=== PATIENT | female | born 1975 | race Caucasian/White ===

== ENCOUNTER 2022-10-03 13:02 | Emergency (ER) | payer OTHER, SELFPAY ==
--- NOTE | ~2022-10-03 | CT_ITS ---
EXAMINATION: CT ABDOMEN AND PELVIS WITH CONTRAST CLINICAL INFORMATION: Abdominal pain and vomiting. COMPARISON: None available. TECHNIQUE: Multidetector volumetric images were obtained from the superior aspect of the liver through the pubic symphysis following administration 85 mL of Omnipaque 350 intravenous contrast. Sagittal and coronal reformatted images were obtained on the technologist's workstation. Oral contrast: No This CT examination was performed using dose optimization techniques as appropriate, variously including the following: *Automated exposure control *Adjustment of mA and/or kV according to patient size (this includes techniques or standardized protocols for targeted exams where dose is matched to indication/reason for exam; i.e. extremities or head) *Use of iterative reconstruction technique DLP: 658 mGy-cm FINDINGS: LUNG BASES: Minimal bibasilar atelectasis. Normal heart size. LIVER, GALLBLADDER, AND BILIARY TREE: The liver is normal in size, shape, and attenuation. No biliary ductal dilatation. Multiple subcentimeter hypoattenuating lesions scattered in the liver, too small to fully characterize.. The gallbladder is unremarkable with no evidence of radiopaque gallstones, gallbladder wall thickening, or obvious pericholecystic inflammatory changes. PANCREAS: Unremarkable. SPLEEN: Unremarkable. ADRENAL GLANDS: Unremarkable. KIDNEYS AND URETERS: The cortical thinning at the upper pole of the right kidney with lobulated appearance. There is an associated simple cyst for which no specific follow-up is recommended. No hydronephrosis or nephrolithiasis. BLADDER: Unremarkable. GASTROINTESTINAL TRACT: The stomach is unremarkable. Normal caliber small bowel. No obstruction. Normal appendix. No colonic wall thickening or inflammation. No free air. Trace pelvic free fluid. ABDOMINAL WALL: No significant hernia is appreciated. LYMPH NODES: Normal. VASCULAR: Unremarkable. PELVIC VISCERA: Anteverted uterus with IUD in place. No adnexal mass. OSSEOUS STRUCTURES: No acute or suspicious osseous abnormality. CT/CT abdomen pelvis w IV con IMPRESSION: No acute findings in the abdomen or pelvis. No inflammatory changes. Fleischner guidelines were followed.
[2022-10-03 13:18] VITALS: BP 154/85; PULSE 94; RESP 18; TEMP 36.6; O2SAT 98; BMI 30.9
--- NOTE | 2022-10-03 13:19 | ED_ITS ---
HPI - Nausea/Vomiting/Diarrhea General Chief complaint: Abdominal Pain <MINDY Woods - Last Filed: 10/03/22 13:20> Stated complaint: vomiting <MINDY Woods - Last Filed: 10/03/22 13:20> Time Seen by Provider: 10/03/22 14:13 <MINDY Woods - Last Filed: 10/03/22 13:20> Source: patient, family, RN notes reviewed and old records reviewed <Smith Bird - Last Filed: 10/03/22 17:29> Mode of arrival: ambulatory <Smith Bird - Last Filed: 10/03/22 17:29> Limitations: no limitations <Smith Omalley Last Filed: 10/03/22 17:29> History of Present Illness HPI Narrative: 46-year-old female presents for evaluation of vomiting, diarrhea and headache. The patient reports her symptoms started 4 hours prior to arrival she reports some mild upper abdominal pain. Reports that surgical history includes umbilical hernia repair only he rates her pain as 7/10. The patient's daughter is present with fever and cough. The patient does not have a fever,cough or shortness of breath. patient complains of a headache but suffers from migraines. Denies any blurry vision, dizziness, head trauma <Smith Omalley Last Filed: 10/03/22 17:29> Related Data Home medications: Previous Rx's Medication Instructions Recorded ondansetron 4 mg disintegrating 4 mg PO Q8H PRN nausea and 10/03/22 tablet vomiting #20 tabs <MINDY Woods - Last Filed: 10/03/22 13:20> Allergies/Adverse reactions: Allergies Allergy/AdvReac Type Severity Reaction Status Date / Time gluten Allergy Unknown Verified 10/03/22 13:17 lamotrigine [From Lamictal] Allergy Swelling Verified 10/03/22 13:16 Penicillins [PCN] Allergy Swelling Verified 10/03/22 13:17 <MINDY Woods Last Filed: 10/03/22 13:20> Review of Systems Constitutional: Constitutional: Reports as per HPI, Denies chills, Denies fatigue, Denies fever(s) and Reports headache(s) <Smith Lee Filed: 10/03/22 17:29> ENT: Reports headache(s) <Smith O - Last Filed: 10/03/22 17:29> Cardiovascular: Cardiovascular: Denies chest pain and Denies dyspnea <Smith - Last Filed: 10/03/22 17:29> Respiratory: Respiratory: Denies cough and Denies dyspnea <Smith O - Last Filed: 10/03/22 17:29> Gastrointestinal: Gastrointestinal: Reports abdominal pain, Reports diarrhea and Reports vomiting <Smith O - Last Filed: 10/03/22 17:29> Genitourinary: Genitourinary: Denies dysuria <Smith O Last Filed: 10/03/22 17:29> Integumentary/Breasts: Skin/Breast: Denies rash <Smith O - Last Filed: 10/03/22 17:29> Neurologic: Reports headache(s) and Denies focal weakness <Smith ONick - Last Filed: 10/03/22 17:29> Endocrine: Endocrine: Denies fatigue <Smith O - Last Filed: 10/03/22 17:29> FOR[facility]LY [facility] Social History Social History: Social History Advance Directives: No Advance Directives Information Provided: No <MINDY Woods - Last Filed: 10/03/22 13:20> Physical Exam Vital Signs: Vital Signs: Last Vital Signs Temp 99.0 F 10/03/22 16:34 Pulse 96 10/03/22 16:00 Resp 18 10/03/22 16:00 BP 144/96 H 10/03/22 16:00 Pulse Ox 100 10/03/22 16:00 O2 Del Method Room Air 10/03/22 16:00 BMI result Body Mass Index 30.9 <MINDY Woods - Last Filed: 10/03/22 13:20> Vital Signs: Last Vital Signs Temp 99.0 F 10/03/22 16:34 Pulse 96 10/03/22 16:00 Resp 18 10/03/22 16:00 BP 144/96 H 10/03/22 16:00 Pulse Ox 100 10/03/22 16:00 O2 Del Method Room Air 10/03/22 16:00 BMI result Body Mass Index 30.9 < - Last Filed: 10/03/22 17:29> Const: General: healthy appearing, comfortable, no acute distress, alert and awake <Smith Last Filed: 10/03/22 17:29> Nutritional Appearance: well nourished < Last Filed: 0 10/03/22 17:29> Orientation/consciousness: patient oriented x3 < Last Filed: 10/03/22 17:29> HEENT: Head: Yes normocephalic and Yes atraumatic < - Last Filed: 10/03/22 17:29> Throat: Yes posterior oropharynx normal < Last Filed: 10/03/22 17:29> Eyes: Eyelids: Yes eyelids normal < - Last Filed: 10/03/22 17:29> Conjunctivae: conjunctivae normal < Last Filed: 10/03/22 17:29> Sclerae: sclerae normal < Last Filed: 10/03/22 17:29> Corneas: corneas normal < Last Filed: 10/03/22 17:29> Pupils: Equal, round and reactive pupils present < Last Filed: 10/03/22 17:29> EOM: EOMs intact bilaterally < Last Filed: 10/03/22 17:29> Neck: Neck: Yes full ROM < Last Filed: 10/03/22 17:29> Resp: Effort & Inspection: normal respiratory effort, able to speak in complete sentences, no audible wheezes and not labored < Last Filed: 10/03/22 17:29> Auscultation: clear to auscultation bilaterally < Last Filed: 10/03/22 17:29> Cardio: Rate: regular rate < Last Filed: 10/03/22 17:29> Rhythm: regular rhythm <Smith Bird - Last Filed: 10/03/22 17:29> GI: Inspection: No distended <Smithtyra Wright Last Filed: 10/03/22 17:29> Palpation (GI): Soft to palpation, not firm, Tenderness to palpation present (GI) ( tender in the left mid abdomen without guarding or rebound), no guarding and not rigid <Smith ONick - Last Filed: 10/03/22 17:29> Auscultation: normoactive bowel sounds <Smith OWashita - Last Filed: 10/03/22 17:29> Skin: General skin exam: no rashes or lesions noted and elasticity normal <Smith ONick - Last Filed: 10/03/22 17:29> Neuro: General: patient oriented x3 <Smith DawnWashita - Last Filed: 10/03/22 17:29> Cranial nerves: Yes CN's II-XII intact bilaterally, Yes Equal, round and reactive pupils present and Yes Bilaterally intact EOM present <Smithtyra Wright Last Filed: 10/03/22 17:29> Cognition (Neuro): normal cognition <Smith DawnNick Last Filed: 10/03/22 17:29> Course Course Course Narrative: RME - 46 yo female presents to the ER for evaluation of nausea, vomiting and upper abdominal pain that started this morning at 2am. Unable to tolerate any PO today. +chills and body aches. Daughter with similar symptoms. Plan: labs and SL zofran <MINDY Woods - Last Filed: 10/03/22 13:20> Reevaluation(s) Reevaluation #1: patient has had no vomiting while in the ER, CT scan without acute findings. Vital signs remain stable, she is stable for discharge with Zofran <Smith Bird - Last Filed: 10/03/22 17:29> Time: 17:25 <Smith Bird Last Filed: 10/03/22 17:29> Medications Administered Discontinued Medications Generic Name Dose Route Start Last Admin Trade Name Freq PRN Reason Stop Dose Admin Acetaminophen 975 mg 10/03/22 16:17 10/03/22 16:28 Acetaminophen 325 Mg Tablet PO 10/03/22 16:18 975 mg ONCE ONE Administration Sodium Chloride 1,000 mls @ 999 mls/hr 10/03/22 14:30 10/03/22 16:30 Ns IV 10/03/22 15:30 Infused .Q1H1M IVAN Infusion Iohexol 100 ml 10/03/22 16:12 10/03/22 16:13 Iohexol 350 Mg/Ml 100 Ml Infus..Btl IV 10/03/22 16:13 85 ml ONCE ONE Administration Morphine Sulfate 4 mg 10/03/22 14:30 10/03/22 14:38 Morphine Sulfate 4 Mg/Ml Cartridge IVPUSH 10/03/22 14:31 4 mg ONCE ONE Administration Protocol Ondansetron HCl 4 mg 10/03/22 13:18 10/03/22 14:27 Ondansetron Odt 4 Mg Tab.Rapdis TRANSLINGU 10/03/22 13:19 Not Given ONCE ONE Ondansetron HCl 4 mg 10/03/22 14:30 10/03/22 14:38 Ondansetron Hcl 4 Mg/2 Ml Vial IVPUSH 10/03/22 14:31 4 mg ONCE ONE Administration <MINDY Woods - Last Filed: 10/03/22 13:20> Medications Administered Discontinued Medications Generic Name Dose Route Start Last Admin Trade Name Freq PRN Reason Stop Dose Admin Acetaminophen 975 mg 10/03/22 16:17 10/03/22 16:28 Acetaminophen 325 Mg Tablet PO 10/03/22 16:18 975 mg ONCE ONE Administration Sodium Chloride 1,000 mls @ 999 mls/hr 10/03/22 14:30 10/03/22 16:30 Ns IV 10/03/22 15:30 Infused .Q1H1M IVAN Infusion Iohexol 100 ml 10/03/22 16:12 10/03/22 16:13 Iohexol 350 Mg/Ml 100 Ml Infus..Btl IV 10/03/22 16:13 85 ml ONCE ONE Administration Morphine Sulfate 4 mg 10/03/22 14:30 10/03/22 14:38 Morphine Sulfate 4 Mg/Ml Cartridge IVPUSH 10/03/22 14:31 4 mg ONCE ONE Administration Protocol Ondansetron HCl 4 mg 10/03/22 13:18 10/03/22 14:27 Ondansetron Odt 4 Mg Tab.Cyndi HERRERAINGU 10/03/22 13:19 Not Given ONCE ONE Ondansetron HCl 4 mg 10/03/22 14:30 10/03/22 14:38 Ondansetron Hcl 4 Mg/2 Ml Vial IVPUSH 10/03/22 14:31 4 mg ONCE ONE Administration <Smith Bird - Last Filed: 10/03/22 17:29> Medical Decision Making Medical Decision Making MDM Narrative: 46-year-old female presents for evaluation of abdominal pain vomiting. Her white count is 23.4k she has some tenderness in left mid abdomen. Given the location or tenderness gallbladder disease and acute appendicitis is less likely. Will be a CT scan of the abdomen pelvis to better evaluate. Patient treated with IV fluids, Zofran IV, morphine IV. <Smith Bird - Last Filed: 10/03/22 17:29> Differential Diagnosis viral syndrome Gastroenteritis Pancreatitis Cholecystitis Acute appendicitis acute headache Migraine headache Dehydration <Smith Bird - Last Filed: 10/03/22 17:29> Lab Data Result Diagrams: 10/03/22 13:44 10/03/22 13:44 <MINDY Woods - Last Filed: 10/03/22 13:20> Labs: Lab Results 10/03/22 10/03/22 10/03/22 Range/Units 13:44 13:44 13:44 WBC 23.6 H (4.8-10.8) X10*3/uL RBC 5.15 (4.20-5.50) X10*6/uL Hgb 14.8 (12.0-16.0) g/dl Hct 42.5 (37.0-47.0) % MCV 82.5 (80.0-98.0) fL MCH 28.7 (27.0-33.0) pg MCHC 34.8 (31.0-35.0) g/dl RDW 12.7 (11.0-16.0) % Plt Count 219 (160-400) X10*3/uL MPV 9.6 (9.4-12.3) fL Immature Gran % (Auto) 0.8 H (0.0-0.4) % Neut % (Auto) 93.3 H (45-73) % Lymph % (Auto) 2.3 L (20-40) % [place] % (Auto) 3.4 (2-11) % Eos % (Auto) 0.0 (0-4) % Baso % (Auto) 0.2 (0-2) % Lymph # (Auto) 0.5 L (1.2-4.9) X10*3/uL [place] # (Auto) 0.8 (0.1-1.2) X10*3/uL Eos # (Auto) 0.0 (0.0-0.4) X10*3/uL Baso # (Auto) 0.1 (0.0-0.2) X10*3/uL Abs Immat Gran (auto) 0.18 H (0.00-0.03) X10*3/uL Absolute Neuts (auto) 22.0 H (2.0-8.3) x10*3/uL Absolute Nucleated RBC 0.000 (0.0-0.012) X10*3/uL Nucleated RBC % (auto) 0.0 (0.0-0.2) /100WBC Smear Tech's Comments VERIFIED Sodium 136 (135-145) mmol/L Potassium 3.7 (3.3-5.1) mmol/L Chloride 101 (96-108) mmol/L Carbon Dioxide 26 (22-29) mmol/L Anion Gap 13 (12-20) BUN 13 (9-16) mg/dL Creatinine 0.70 (0.5-1.4) mg/dL Estim Creat Clear Calc 104.9 Estimated GFR > 60 Random Glucose 132 H (60-115) mg/dL Calcium 8.9 (8.4-10.2) mg/dL Magnesium 1.6 (1.6-2.6) mg/dL Total Bilirubin 1.6 H (0.0-1.0) mg/dL Direct Bilirubin 0.4 (0.0-0.5) mg/dL AST 17 (5-31) U/L ALT 11 (0-31) U/L Alkaline Phosphatase 80 (39-117) U/L Total Protein 7.4 (6.5-8.0) g/dL Albumin 4.1 (3.5-5.0) g/dL Lipase 10 (8-78) U/L Urine Color Urine Appearance Urine pH (5.0-9.0) Ur Specific [place] (1.005-1.025) Urine Protein (Neg-Trace) mg/dL Urine Glucose (UA) (Negative) mg/dL Urine Ketones (Negative) mg/dL Urine Blood (Negative) Urine Nitrite (Negative) Ur Leukocyte Esterase (Negative) Urine RBC (0-2) /HPF Urine WBC (0-5) /HPF Ur Squamous Epith Cells (0-2) /HPF Urine Bacteria (None Seen) Hyaline Casts (0-2) /LPF Urine Test (NEGATIVE) COVID-19 (CASPER) Negative (Negative) COVID-19 Clin Com See Note 10/03/22 10/03/22 Range/Units 15:38 15:38 WBC (4.8-10.8) X10*3/uL RBC (4.20-5.50) X10*6/uL Hgb (12.0-16.0) g/dl Hct (37.0-47.0) % MCV (80.0-98.0) fL MCH (27.0-33.0) pg MCHC (31.0-35.0) g/dl RDW (11.0-16.0) % Plt Count (160-400) X10*3/uL MPV (9.4-12.3) fL Immature Gran % (Auto) (0.0-0.4) % Neut % (Auto) (45-73) % Lymph % (Auto) (20-40) % [place] % (Auto) (2-11) % Eos % (Auto) (0-4) % Baso % (Auto) (0-2) % Lymph # (Auto) (1.2-4.9) X10*3/uL [place] # (Auto) (0.1-1.2) X10*3/uL Eos # (Auto) (0.0-0.4) X10*3/uL Baso # (Auto) (0.0-0.2) X10*3/uL Abs Immat Gran (auto) (0.00-0.03) X10*3/uL Absolute Neuts (auto) (2.0-8.3) x10*3/uL Absolute Nucleated RBC (0.0-0.012) X10*3/uL Nucleated RBC % (auto) (0.0-0.2) /100WBC Smear Tech's Comments Sodium (135-145) mmol/L Potassium (3.3-5.1) mmol/L Chloride (96-108) mmol/L Carbon Dioxide (22-29) mmol/L Anion Gap (12-20) BUN (9-16) mg/dL Creatinine (0.5-1.4) mg/dL Estim Creat Clear Calc Estimated GFR Random Glucose (60-115) mg/dL Calcium (8.4-10.2) mg/dL Magnesium (1.6-2.6) mg/dL Total Bilirubin (0.0-1.0) mg/dL Direct Bilirubin (0.0-0.5) mg/dL AST (5-31) U/L ALT (0-31) U/L Alkaline Phosphatase (39-117) U/L Total Protein (6.5-8.0) g/dL Albumin (3.5-5.0) g/dL Lipase (8-78) U/L Urine Color Yellow Urine Appearance Clear Urine pH 8.5 (5.0-9.0) Ur Specific [place] 1.010 (1.005-1.025) Urine Protein Trace (Neg-Trace) mg/dL Urine Glucose (UA) Negative (Negative) mg/dL Urine Ketones 15 (Negative) mg/dL Urine Blood Small (1+) H (Negative) Urine Nitrite Negative (Negative) Ur Leukocyte Esterase Negative (Negative) Urine RBC 11-20 H (0-2) /HPF Urine WBC 0-5 (0-5) /HPF Ur Squamous Epith Cells 0-2 (0-2) /HPF Urine Bacteria None Seen (None Seen) Hyaline Casts 0-2 (0-2) /LPF Urine Test NEGATIVE (NEGATIVE) COVID-19 (CASPER) (Negative) COVID-19 Clin Com <MINDY Woods - Last Filed: 10/03/22 13:20> Lab Results 10/03/22 10/03/22 10/03/22 Range/Units 13:44 13:44 13:44 WBC 23.6 H (4.8-10.8) X10*3/uL RBC 5.15 (4.20-5.50) X10*6/uL Hgb 14.8 (12.0-16.0) g/dl Hct 42.5 (37.0-47.0) % MCV 82.5 (80.0-98.0) fL MCH 28.7 (27.0-33.0) pg MCHC 34.8 (31.0-35.0) g/dl RDW 12.7 (11.0-16.0) % Plt Count 219 (160-400) X10*3/uL MPV 9.6 (9.4-12.3) fL Immature Gran % (Auto) 0.8 H (0.0-0.4) % Neut % (Auto) 93.3 H (45-73) % Lymph % (Auto) 2.3 L (20-40) % [place] % (Auto) 3.4 (2-11) % Eos % (Auto) 0.0 (0-4) % Baso % (Auto) 0.2 (0-2) % Lymph # (Auto) 0.5 L (1.2-4.9) X10*3/uL [place] # (Auto) 0.8 (0.1-1.2) X10*3/uL Eos # (Auto) 0.0 (0.0-0.4) X10*3/uL Baso # (Auto) 0.1 (0.0-0.2) X10*3/uL Abs Immat Gran (auto) 0.18 H (0.00-0.03) X10*3/uL Absolute Neuts (auto) 22.0 H (2.0-8.3) x10*3/uL Absolute Nucleated RBC 0.000 (0.0-0.012) X10*3/uL Nucleated RBC % (auto) 0.0 (0.0-0.2) /100WBC Smear Tech's Comments VERIFIED Sodium 136 (135-145) mmol/L Potassium 3.7 (3.3-5.1) mmol/L Chloride 101 (96-108) mmol/L Carbon Dioxide 26 (22-29) mmol/L Anion Gap 13 (12-20) BUN 13 (9-16) mg/dL Creatinine 0.70 (0.5-1.4) mg/dL Estim Creat Clear Calc 104.9 Estimated GFR > 60 Random Glucose 132 H (60-115) mg/dL Calcium 8.9 (8.4-10.2) mg/dL Magnesium 1.6 (1.6-2.6) mg/dL Total Bilirubin 1.6 H (0.0-1.0) mg/dL Direct Bilirubin 0.4 (0.0-0.5) mg/dL AST 17 (5-31) U/L ALT 11 (0-31) U/L Alkaline Phosphatase 80 (39-117) U/L Total Protein 7.4 (6.5-8.0) g/dL Albumin 4.1 (3.5-5.0) g/dL Lipase 10 (8-78) U/L Urine Color Urine Appearance Urine pH (5.0-9.0) Ur Specific [place] (1.005-1.025) Urine Protein (Neg-Trace) mg/dL Urine Glucose (UA) (Negative) mg/dL Urine Ketones (Negative) mg/dL Urine Blood (Negative) Urine Nitrite (Negative) Ur Leukocyte Esterase (Negative) Urine RBC (0-2) /HPF Urine WBC (0-5) /HPF Ur Squamous Epith Cells (0-2) /HPF Urine Bacteria (None Seen) Hyaline Casts (0-2) /LPF Urine Test (NEGATIVE) COVID-19 (CASPER) Negative (Negative) COVID-19 Clin Com See Note 10/03/22 10/03/22 Range/Units 15:38 15:38 WBC (4.8-10.8) X10*3/uL RBC (4.20-5.50) X10*6/uL Hgb (12.0-16.0) g/dl Hct (37.0-47.0) % MCV (80.0-98.0) fL MCH (27.0-33.0) pg MCHC (31.0-35.0) g/dl RDW (11.0-16.0) % Plt Count (160-400) X10*3/uL MPV (9.4-12.3) fL Immature Gran % (Auto) (0.0-0.4) % Neut % (Auto) (45-73) % Lymph % (Auto) (20-40) % [place] % (Auto) (2-11) % Eos % (Auto) (0-4) % Baso % (Auto) (0-2) % Lymph # (Auto) (1.2-4.9) X10*3/uL [place] # (Auto) (0.1-1.2) X10*3/uL Eos # (Auto) (0.0-0.4) X10*3/uL Baso # (Auto) (0.0-0.2) X10*3/uL Abs Immat Gran (auto) (0.00-0.03) X10*3/uL Absolute Neuts (auto) (2.0-8.3) x10*3/uL Absolute Nucleated RBC (0.0-0.012) X10*3/uL Nucleated RBC % (auto) (0.0-0.2) /100WBC Smear Tech's Comments Sodium (135-145) mmol/L Potassium (3.3-5.1) mmol/L Chloride (96-108) mmol/L Carbon Dioxide (22-29) mmol/L Anion Gap (12-20) BUN (9-16) mg/dL Creatinine (0.5-1.4) mg/dL Estim Creat Clear Calc Estimated GFR Random Glucose (60-115) mg/dL Calcium (8.4-10.2) mg/dL Magnesium (1.6-2.6) mg/dL Total Bilirubin (0.0-1.0) mg/dL Direct Bilirubin (0.0-0.5) mg/dL AST (5-31) U/L ALT (0-31) U/L Alkaline Phosphatase (39-117) U/L Total Protein (6.5-8.0) g/dL Albumin (3.5-5.0) g/dL Lipase (8-78) U/L Urine Color Yellow Urine Appearance Clear Urine pH 8.5 (5.0-9.0) Ur Specific [place] 1.010 (1.005-1.025) Urine Protein Trace (Neg-Trace) mg/dL Urine Glucose (UA) Negative (Negative) mg/dL Urine Ketones 15 (Negative) mg/dL Urine Blood Small (1+) H (Negative) Urine Nitrite Negative (Negative) Ur Leukocyte Esterase Negative (Negative) Urine RBC 11-20 H (0-2) /HPF Urine WBC 0-5 (0-5) /HPF Ur Squamous Epith Cells 0-2 (0-2) /HPF Urine Bacteria None Seen (None Seen) Hyaline Casts 0-2 (0-2) /LPF Urine Test NEGATIVE (NEGATIVE) COVID-19 (CASPER) (Negative) COVID-19 Clin Com <Smith Bird - Last Filed: 10/03/22 17:29> Discharge Plan Discharge Clinical Impression: Acute nausea with nonbilious vomiting <MINDY Woods - Last Filed: 10/03/22 13:20> Patient Disposition: Home, Self-Care <MINDY Woods - Last Filed: 10/03/22 13:20> Instructions: Acute Nausea and Vomiting (ED) <MINDY Woods - Last Filed: 10/03/22 13:20> Additional Instructions: take ondansetron as needed for nausea take Tylenol for headaches your CT scan did not show any acute findings, your symptoms are likely related to a virus <MINDY Woods - Last Filed: 10/03/22 13:20> Prescriptions: New ondansetron 4 mg tablet,disintegrating 4 mg PO Q8H PRN (Reason: nausea and vomiting) Qty: 20 0RF <MINDY Woods - Last Filed: 10/03/22 13:20>
[2022-10-03 13:52] LABS: Basophils Absolute Auto 0.1 X10*3/uL (0.0-0.2); Basophils Percent Auto 0.2 % (0-2); Hematocrit 42.5 % (37.0-47.0); Hemoglobin 14.8 g/dl (12.0-16.0); Imm Gran Abs Auto 0.18 X10*3/uL (0.00-0.03); Imm Gran Pct Auto 0.8 % (0.0-0.4); Lymphocytes Absolute Auto 0.5 X10*3/uL (1.2-4.9); Lymphocytes Percent Auto 2.3 % (20-40); MANUAL DIFF FLAG SCAN; Mean Corpuscular HGB Conc 34.8 g/dl (31.0-35.0); Mean Corpuscular Hemoglobin 28.7 pg (27.0-33.0); Mean Corpuscular Volume 82.5 fL (80.0-98.0); Mean Platelet Volume 9.6 fL (9.4-12.3); Monocytes Absolute Auto 0.8 X10*3/uL (0.1-1.2); Monocytes Percent Auto 3.4 % (2-11); Neutrophils Percent Auto 93.3 % (45-73); Platelet Count 219 X10*3/uL (160-400); Red Blood Count 5.15 X10*6/uL (4.20-5.50); Red Cell Distribution Width 12.7 % (11.0-16.0); SCAN SMEAR FLAG 1; White Blood Count 23.6 X10*3/uL (4.8-10.8)
[2022-10-03 14:09] LABS: SLIDE REVIEW VERIFIED
[2022-10-03 14:21] LABS: COVID-19 Test Negative (Negative); IDNOW Serial# 6674DD1D
[2022-10-03 14:31] LABS: Alanine Aminotransferase 11 U/L (0-31); Albumin Level 4.1 g/dL (3.5-5.0); Alkaline Phosphatase 80 U/L (39-117); Anion Gap 13 (12-20); Aspartate Amino Transferase 17 U/L (5-31); Bilirubin Direct 0.4 mg/dL (0.0-0.5); Bilirubin Total 1.6 mg/dL (0.0-1.0); Blood Urea Nitrogen 13 mg/dL (9-16); Calcium 8.9 mg/dL (8.4-10.2); Carbon Dioxide 26 mmol/L (22-29); Chloride 101 mmol/L (96-108); Creatinine Clr Calc Pharmacy 104.9; Estimated Glomerular Filt Rate > 60; Glucose Random 132 mg/dL (60-115); Lipase 10 U/L (8-78); Magnesium 1.6 mg/dL (1.6-2.6); Potassium 3.7 mmol/L (3.3-5.1); Sodium 136 mmol/L (135-145); Total Protein 7.4 g/dL (6.5-8.0)
[2022-10-03] MEDS: 0.9 % Sodium Chloride 1,000 ML 999 ML IV (14:38)
[2022-10-03] MEDS: Morphine Sulfate 4 MG/ML CARTRIDGE IVPUSH (14:38)
[2022-10-03] MEDS: ondansetron HCL 4 MG/2 ML VIAL IVPUSH (14:38)
--- OUTSIDE RECORDS SUMMARY | 2022-10-03 14:49 | XMS_ITS | Continuity of Care Document ---
Author Name Unknown Organization [facility] Address [address] [place] [address]- Care Team Providers Care Staffing Manager Name Role Phone Desmond Hogan Primary Care Physician Encounter [facility] Date(s): 04/22/22 - 06/23/22 [facility] [address] [place] [phone]- Attending Physician: Desmond Hogan Admitting Physician: Desmond Hogan Allergies, Adverse Reactions, Alerts Substance Reaction Severity Status Keflex Rash Active Lamictal Skin rash. Active meloxicam Facial swelling, tongue numbness, asthma Active Gluten free Active metroNIDAZOLE topical angioedema Active Immunizations Given and Recorded Vaccine Date Status Refusal Reason SARS-CoV-2 (COVID-19) mRNA BNT-162b2 vac 06/11/21 Given SARS-CoV-2 (COVID-19) mRNA BNT-162b2 vac 05/11/21 Given influenza virus vaccine, inactivated 06/04/18 Give n influenza virus vaccine, inactivated 1 03/27/17 Gi myesha influenza virus vaccine, inactivated 04/12/16 Give n influenza virus vaccine, inactivated 04/08/15 Give n influenza virus vaccine, inactivated 2 04/22/14 Gi myesha influenza virus vaccine, inactivated 06/07/13 Give n influenza virus vaccine, inactivated 3 05/30/12 Gi myesha influenza virus vaccine, inactivated 4 03/16/11 Gi myesha influenza virus vaccine, inactivated 5 04/28/10 Gi myesha influenza virus vaccine, inactivated 6 05/23/07 Gi myesha influenza virus vaccine, inactivated 7 05/23/06 Gi myesha tetanus/diphtheria/pertussis, acel(Tdap) 12/31/13 Given pneumococcal 23-valent vaccine 12/13/10 Given Tet/Diphth/Acel, Pertussis (oldterm) 8 06/30/08 Gi myesha 1Result Comment: [03/27/2017] NDC 57700-602-40 2Admin Note: At [facility] 3Admin Note: VIS GIVEN-DATED 01/02/12 4Admin Note: VIS GIVEN VIS DATE 01/25/11 5Admin Note: vis given vis date 02/09/2010 6Admin Note: VIS GIVEN 7Admin Note: VIS GIVEN 8Admin Note: vis given Medications acetaminophen 325 mg oral tablet 650 mg, 2, tablet, By Mouth, Every 8 hours, for pain., # 100 tablet, Refills 0, Tot. Refills 0, Maintenance, 10/12/21 10:38:00 EDT, Route to Pharmacy Electronically, [facility]/pharmacy #[id number], Partial fill upon patient request if the prescription is for a sc... Start Date: 10/12/21 Status: Ordered baclofen 10 mg oral tablet 10 mg, 1, tablet, By Mouth, 2 times a day, PRN, # 30 tablet, Refills 0, Tot. Refills 0, Maintenance, muscle spasm, 04/18/22 10:33:00 EDT, Route to Pharmacy Electronically, [facility]/pharmacy #[id number], Partialfill upon patient request if the prescription is fo... Start Date: 04/18/22 Status: Ordered EpiPen 2-Thomas 0.3 mg injectable kit = 0.3 mg, Intramuscular, Once, # 1 pack/packet, 0 Refills, Soft Stop, 04/22/19 17:32:16 EDT Start Date: 04/22/19 Status: Ordered Flovent HFA 110 mcg/inh inhalation aerosol 2 puffs, Inhalation, 2 times a day, rinse mouth and throat after use, # 1 each, 5 Refills, Maintenance, 05/24/22 10:53:00 EST, [facility]/pharmacy #[id number], Partial fill upon patient request if the prescription is for a schedule II opioid drug., 167, cm, 05/24/... Start Date: 05/24/22 Status: Ordered fluconazole 150 mg oral tablet 1 tablet = 150 mg, By Mouth, Once, Repeat dose if still having symptoms in 72 hours, # 2 tablet, 0 Refills, Soft Stop, 11/26/21 14:03:00 EDT, Tablet, [facility]/pharmacy #[id number], Partial fill upon patient request if the prescription is for a schedule II opioid... Start Date: 11/26/21 Status: Ordered fluconazole 150 mg oral tablet 1 tablet = 150 mg, By Mouth, Once, Acute, # 1 tablet, 0 Refills, Soft Stop, 12/06/21 8:08:00 EDT, [facility]/pharmacy #[id number], Partial fill upon patient request if the prescription is for a schedule II opioiddrug., 167, cm, 11/26/21 13:55:00 EDT, Height, 87.9... Start Date: 12/06/21 Status: Ordered FLUoxetine (Eqv-Prozac) 20 mg oral tablet 1 tablet = 20 mg, By Mouth, Daily, # 30 tablet, 1 Refills, Maintenance, 03/16/22 15:00:00 EDT, Tablet, [facility]/pharmacy #[id number], Partial fill upon patient request if the prescription is for a schedule II opioid drug., 167, cm, 03/16/22 13:56:00 EDT, Height,... Start Date: 03/16/22 Stop Date: 05/15/22 Status: Ordered fluticasone 50 mcg/inh nasal spray See Instructions, USE 1 SPRAY INTO EACH NOSTRIL EVERY MORNING FOR 30 DAYS, # 16 mL, 2 Refills, [id number], 30, USE 1 SPRAY INTO EACH NOSTRIL EVERY MORNING FOR 30 DAYS, 167, cm, 11/04/21 10:58:00EDT, Height, 87.9, kg, 08/23/21 21:04:00 EST, Dry W... Start Date: 11/17/21 Status: Ordered levothyroxine 125 mcg (0.125 mg) oral tablet 1 tablet = 125 mcg, By Mouth, Daily, # 30 tablet, 5 Refills, Maintenance, 05/17/22 16:56:00 EST, Tablet, [facility]/pharmacy #[id number], Partial fill upon patient request if the prescription is for a schedule IIopioid drug., 167, cm, 04/18/22 10:00:00 EDT, Heigh... Start Date: 05/17/22 Stop Date: 11/13/22 Status: Ordered ProAir HFA 90 mcg/inh inhalation aerosol with adapter 2, puffs, Inhalation, Every 6 hours, PRN, # 8.5 each, Refills 5, Tot. Refills 5, Maintenance, 10/11/21 10:23:00 EDT, Route to Pharmacy Electronically, [id number], [facility]/pharmacy #[id number], 167, cm, 09/15/21 15:38:00 EDT, Height, 87... Start Date: 10/11/21 Status: Ordered Right Cock UP Splint Right Cock UP Splint, See Instructions, # 1 each, Refills 0, Tot. Refills 0, Maintenance, Dx: M65.849, 04/05/21 9:33:00 EDT, Supply Start Date: 04/05/21 Status: Ordered Sudafed 30 mg oral tablet 1 tablet = 30 mg, By Mouth, Every 6 hours, PRN Congestion, # 24 tablet, 0 Refills, Maintenance, 03/26/21 18:12:00 EDT, [facility]/pharmacy #[id number], Partial fill upon patient request if the prescription is fora schedule II opioid drug., 162.56, cm, 03/26/21 18... Start Date: 03/26/21 Status: Ordered Vitamin D3 1000 intl units oral capsule 1 capsule = 1,000 International_Units, By Mouth, Daily, # 90 capsule, 1 Refills, Maintenance, 12/16/20 10:54:00 EDT, [id number], 162.56, cm, 11/27/20 9:16:00 EDT, Height Start Date: 12/16/20 Stop Date: 06/14/21 Status: Ordered Voltaren 1% topical gel = 2 Gm, Topically, 4 times a day, PRN Pain , Moderate, resent, # 100 Gm, 1 Refills, Maintenance, 02/24/21 16:06:00 EDT, [facility]/pharmacy #[id number], Partial fill upon patient request if the prescription is for a schedule II opioid drug., 2 Gm Topically 4 times... Start Date: 02/24/21 Status: Ordered Problem List Condition Confirmation Course Effective Dates Status H ealth Status Informant Adult celiac disease Confirmed Active Allergic reaction Confirmed Active Asthma, Mild Intermittent, Seen by Dr. Sanchez/Alicia Michel 2006 Confirmed Active Bipolar disorder- on Fluoxetine Confirmed Active Pyelonephritis complicating - on Keflex suppression Confirmed Active Hypothyroidism Confirmed Active Obese class I Confirmed Active Polyarthritis 1 Confirmed Active Reflux, Laryngeal Confirmed Active Severe major depression Confirmed Active LEFT Shoulder joint pain, 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 Sched for Sx 07/05/06 Confirmed Active 1F/U by Dr. Gibbs at [facility]. ORal Steroid Trial given. Social History Social History Type Response Smoking Status Former smoker entered on: 11/13/16 Sex Female Patient Care team information Care Team Personnel Name: Desmond Hogan Position: [facility] PCO Associate Professional Member Role: PCP Address: Address: [address] [place] [address]- Name: Espinoza Alamo RN Position: [facility] RN Member Role: Primary Care Nurse Name: Jamel Flor RN Position: [facility] RN Member Role: Primary Care Nurse Name: Candi Eisenberg RN Position: [facility] RN Member Role: Primary Care Nurse Name: Gilmar Mckeon RN Position: [facility] SN RN Member Role: Primary Care Nurse Name: Catalina Reece RN Position: [facility] OB RN Member Role: Primary Care Nurse Name: Elizabeth Rowland RN Position: [facility] Onco RN Member Role: Primary Care Nurse Care Team Related Persons Name: CHAD PIERREO Address: home [address] [place] [address]
--- OUTSIDE RECORDS SUMMARY | 2022-10-03 14:49 | XMS_ITS | Continuity of Care Document ---
Author Name Unknown Organization [facility] Address [address] [place] [address]- Care Team Providers Care Slot Floor Supervisor Name Role Phone Srikanth Narayan MD Primary Care Physician [phone] Encounter [facility] Date(s): 06/21/21 - 07/21/21 [facility] [address] [place] [phone]- Allergies, Adverse Reactions, Alerts Substance Reaction Severity [...] 8 06/30/08 Gi myesha 1Result Comment: [03/27/2017] [facility] 69368-036-91 2Admin Note: At [facility] 3Admin Note: VIS GIVEN-DATED 01/02/12 4Admin Note: VIS GIVEN VIS DATE 01/25/11 5Admin Note: vis given vis date 02/09/2010 6Admin Note: VIS GIVEN 7Admin Note: VIS GIVEN 8Admin Note: vis given Medications acetaminophen 500 mg oral tablet 2 tablet = 1,000 mg, By Mouth, Every 8 hours, for pain., # 100 tablet, 1 Refills, Maintenance, 05/06/20 17:16:00 EST, [facility]/pharmacy #[id number], 162.56, cm, 05/06/20 16:24:00 EST, Height, 76.6, kg, :30:00 EST, Dry Weight Start Date: 05/06/20 Status: Ordered Albuterol (Eqv-ProAir HFA) 90 mcg/inh inhalation aerosol 2 puffs, Inhalation, Every 6 hours, PRN NEEDED FOR WHEEZING/SHORTNESS OF BREATH, # 8.5 each, 5 Refills, Maintenance, 04/26/21 9:56:00 EDT, [facility]/pharmacy #[id number], 25, 2 puffs Inhalation Every 6 hours,PRN: NEEDED FOR WHEEZING/SHORTNESS OF BREATH, 162.... Start Date: 04/26/21 Status: Ordered Azithromycin 5 Day Dose Pack 250 mg oral tablet See Instructions, 1 pack/packet By Mouth as directed on package labeling, # 6 tablet, 0 Refills, Soft Stop, 04/28/21 9:45:00 EDT, Tablet, [facility]/pharmacy #[id number], Partial fill upon patient request if the prescription is for a schedule II opioid drug., 162... Start Date: 04/28/21 Status: Ordered cetirizine 10 mg oral tablet 1 tablet, By Mouth, Daily, PRN NEEDED FOR ALLERGY SYMPTOMS, # 30 tablet, 5 Refills, Maintenance,02/15/21 8:32:00 EDT, [facility], 162.56, cm, 11/27/20 9:16:00 EDT, Height Start Date: 02/15/21 Stop Date: 03/17/21 Status: Ordered EpiPen 2-Thomas 0.3 mg injectable kit = 0.3 mg, Intramuscular, Once, # 1 pack/packet, 0 Refills, Soft Stop, 04/22/19 17:32:16 EDT Start Date: 04/22/19 Status: Ordered fluticasone 50 mcg/inh nasal spray See Instructions, USE 1 SPRAY INTO EACH NOSTRIL EVERY MORNING FOR 30 DAYS, # 16 mL, 5 Refills, [facility] [address], 30, USE 1 SPRAY INTO EACH NOSTRIL EVERY MORNING FOR 30 DAYS, 162.56, cm, 04/02/21 13:19:00 EDT, Height Start Date: 04/19/21 Status: Ordered levothyroxine 0.112 mg oral tablet See Instructions, TAKE 1 TABLET BY MOUTH EVERY DAY, # 30 tablet, 2 Refills, 06/14/21 15:32:00 EST, [facility]/pharmacy #[id number], duplicate rx. original sent 03/03/21. remaining refills sent., 162.56, cm, 05/11/21 15:48:00 EST, Height Start Date: 06/14/21 Status: Ordered Right Cock UP Splint Right Cock UP Splint, See Instructions, # 1 each, Refills 0, Tot. Refills 0, Maintenance, Dx: M65.849, 04/05/21 9:33:00 EDT, Supply Start Date: 04/05/21 Status: Ordered Sudafed 30 mg oral tablet 1 tablet = 30 mg, By Mouth, Every 6 hours, PRN Congestion, # 24 tablet, 0 Refills, Maintenance, 03/26/21 18:12:00 EDT, [facility]/pharmacy #[id number], Partial fill upon [...] Gm, 1 Refills, Maintenance, 02/24/21 16:06:00 EDT, [id number], Partial fill upon patient request if the prescription is for a schedule II opioid drug., 2 Gm Topically 4 times... Start Date: 02/24/21 Status: Ordered Problem List Condition Effective Dates Status Health Status Inform ant Adult celiac disease(Confirmed) Active Allergic reaction(Confirmed) Active Asthma, Mild Intermittent, S een by Dr. Sanchez/Alicia Summer 2006(Confirmed) Active Bipolar disorder- on Fluoxetine(Confirmed) Active Pyelonephritis complicating - on Keflex suppression(Confirmed) Active Hypothyroidism(Confirmed) Active Obese class I(Confirmed) Active Polyarthritis(Confirmed) 1 Active Reflux, Laryngeal(Confirmed) Active Severe major depression(Confirmed) Active LEFT Shoulder joint pain, MR I 11/01/06, Type III acromion with impingement. Sched for Sx 07/05/06(Confirmed) Active 1F/U by Dr. Gibbs at [facility]. ORal Steroid Trial given. Social History Social History Type Response Smoking Status Former smoker entered on: 11/13/16 Sex Female
--- OUTSIDE RECORDS SUMMARY | 2022-10-03 14:49 | XMS_ITS | Continuity of Care Document ---
Author Name Unknown Organization [facility] Address [address] [place] [address]- Care Team Providers Care Creative Arts Therapist Name Role Phone Sylvain LOVE, Srikanth Holguin Primary Care Physician Encounter [facility] Date(s): 02/24/21 - 03/26/21 [facility] [address] [place] [address]- Allergies, Adverse Reactions, Alerts Substance Reaction Severity Status Keflex Rash Active Lamictal Skin rash. Active meloxicam Facial swelling, tongue numbness, asthma Active Gluten free Active metroNIDAZOLE topical angioedema Active Immunizations Given and Recorded Vaccine Date Status Refusal Reason influenza virus vaccine, inactivated 06/04/18 Give n [...] 8 06/30/08 Gi myesha 1Result Comment: [03/27/2017] [facility] [id number] 2Admin Note: At [facility] 3Admin Note: VIS GIVEN-DATED 01/02/12 4Admin Note: VIS GIVEN VIS DATE 01/25/11 5Admin Note: vis given vis date 02/09/2010 6Admin Note: VIS GIVEN 7Admin Note: VIS GIVEN 8Admin Note: vis given Medications acetaminophen 325 mg oral tablet 650 mg, 2, tablet, By Mouth, Every 4 hours, PRN, # 30 tablet, Refills 0, Tot. Refills 0, Maintenance, as needed for pain, 10/22/19 14:56:00 EDT, [id number] 162.56, cm, 08/02/19 10:02:00 EST, Height, 76.6, kg,... Start Date: 10/22/19 Status: Ordered acetaminophen 500 mg oral tablet 2 tablet = 1,000 mg, By Mouth, Every 8 hours, for pain., # 100 tablet, 1 Refills, Maintenance, 05/06/20 17:16:00 EST, [facility]/pharmacy #[id number], 162.56, cm, 05/06/20 16:24:00 EST, Height, 76.6, kg, :30:00 EST, Dry Weight Start Date: 05/06/20 Status: Ordered cetirizine 10 mg oral tablet 1 tablet, By Mouth, Daily, PRN NEEDED FOR ALLERGY SYMPTOMS, # 30 tablet, 5 Refills, Maintenance,02/15/21 8:32:00 EDT, [facility] ST[id number], 162.56, cm, 11/27/20 9:16:00 EDT, Height Start Date: 02/15/21 Stop Date: 03/17/21 Status: Ordered EpiPen 2-Thomas 0.3 mg injectable kit = 0.3 mg, Intramuscular, Once, # 1 pack/packet, 0 Refills, Soft Stop, 04/22/19 17:32:16 EDT Start Date: 04/22/19 Status: Ordered Flonase 50 mcg/inh nasal spray 1 sprays, Nares, Both, Daily in AM, # 16 Gm, 2 Refills, Maintenance, 11/02/20 14:46:00 EDT, [place], [facility]/pharmacy #[id number], 1 sprays Nares, Both Daily in AM,x30 days, 162.56, cm, 08/20/20 13:28:00 EST, Height Start Date: 11/02/20 Stop Date: 01/31/21 Status: Ordered levothyroxine 0.112 mg oral tablet See Instructions, TAKE 1 TABLET BY MOUTH EVERY DAY, # 30 tablet, 5 Refills, [facility] [address]7480, 162.56, cm, 03/03/21 15:20:00 EDT, Height Start Date: 03/03/21 Status: Ordered ProAir HFA 90 mcg/inh inhalation aerosol with adapter 2, puffs, Inhalation, Every 6 hours, PRN, # 8.5 Gm, Refills 11, Tot. Refills 11, Maintenance, 10/22/19 14:57:00 EDT, Aerosol, Route to Pharmacy Electronically, [id number], [facility]/pharmacy #[id number], 162.56, cm, 08/02/19 10:02:00 EST... Start Date: 10/22/19 Status: Ordered Sudafed 30 mg oral tablet 1 tablet = 30 mg, By Mouth, Every 6 hours, PRN Congestion, # 24 tablet, 0 Refills, Maintenance, 03/26/21 18:12:00 EDT, [facility]/pharmacy #[id number], Partial fill upon patient request if the prescription is fora schedule II opioid drug., 162.56, cm, 03/26/21 18... Start Date: 03/26/21 Status: Ordered Vitamin D3 1000 intl units oral capsule 1 capsule = 1,000 International_Units, By Mouth, Daily, # 90 capsule, 1 Refills, Maintenance, 12/16/20 10:54:00 EDT, [facility]/pharmacy #0488, 162.56, cm, 11/27/20 9:16:00 EDT, Height Start Date: 12/16/20 Stop Date: 06/14/21 Status: Ordered Voltaren 1% topical gel = 2 Gm, Topically, 4 times a day, PRN Pain , Moderate, resent, # 100 Gm, 1 Refills, Maintenance, 02/24/21 16:06:00 EDT, [facility]/pharmacy #[id number], Partial fill upon patient request if the prescription is for a schedule II opioid drug., 2 Gm Topically 4 times... Start Date: 02/24/21 Status: Ordered Problem List Condition Effective Dates Status Health Status Inform ant Adult celiac disease(Confirmed) Active Allergic reaction(Confirmed) Active Asthma, Mild Intermittent, S een by Dr. Sanchez/Alicia Michel 2006(Confirmed) Active Bipolar disorder- on Fluoxetine(Confirmed) Active Pyelonephritis complicating - on Keflex suppression(Confirmed) Active Hypothyroidism(Confirmed) Active Polyarthritis(Confirmed) 1 Active Reflux, Laryngeal(Confirmed) Active Severe major depression(Confirmed) Active LEFT Shoulder joint pain, MR I 11/01/06, Type III acromion with impingement. Sched for Sx 07/05/06(Confirmed) Active 1F/U by Dr. Gibbs at [facility]. ORal Steroid Trial given. Social History Social History Type Response Smoking Status Former smoker entered on: 11/13/16 Sex Female
--- OUTSIDE RECORDS SUMMARY | 2022-10-03 14:49 | XMS_ITS | Continuity of Care Document ---
Author Name Unknown Organization [facility] Address [address] [place] [address]- Care Team Providers Care News Librarian Name Role Phone Sylvain LOVE, Srikanth Holguin Primary Care Physician Encounter [facility] Date(s): 08/20/20 - 09/19/20 [facility] [address] [address]- Attending Physician: Admtr, Ar8 Allergies, Adverse Reactions, Alerts Substance Reaction Severity Status Keflex Rash Active Lamictal Skin rash. Active metroNIDAZOLE topical angioedema Active meloxicam Facial swelling, tongue numbness, asthma Active Gluten free Active Immunizations Given and Recorded Vaccine Date [...] 8 06/30/08 Gi myesha 1Result Comment: [03/27/2017] [facility] 69156-693-11 2Admin Note: At [facility] 3Admin Note: VIS GIVEN-DATED 01/02/12 4Admin Note: [...] 10/22/19 14:56:00 EDT, Route to Pharmacy Electronically, [facility]/pharmacy #[id number], 162.56, cm, 08/02/19 10:02:00 EST, Height, 76.6, kg,... Start Date: 10/22/19 Status: Ordered acetaminophen 500 mg oral tablet 2 tablet = 1,000 mg, By Mouth, Every 8 hours, for pain., # 100 tablet, 1 Refills, Maintenance, 05/06/20 17:16:00 EST, [facility]/pharmacy #[id number], 162.56, cm, 05/06/20 16:24:00 EST, Height, 76.6, kg, :30:00 EST, Dry Weight Start Date: 05/06/20 Status: Ordered baclofen 10 mg oral tablet 10 mg, 1, tablet, By Mouth, 3 times a day, for pain., # 15 tablet, Refills 0, Tot. Refills 0, Maintenance, 05/06/20 17:15:00 EST, Route to Pharmacy Electronically, [facility]/pharmacy #[id number], 162.56, cm, 05/06/20 16:24:00 EST, Height, 76.6, kg, 08/18/18 2:30:... Start Date: 05/06/20 Stop Date: 05/11/20 Status: Ordered celecoxib 200 mg oral capsule 1 capsule = 200 mg, By Mouth, Daily, BAUTISTA 2 trials., # 14 capsule, 1 Refills, Maintenance, 01/28/20 9:52:00 EDT, [place]aps[place], [facility]/pharmacy #[id number], 162.56, cm, 12/31/19 8:29:00 EDT, Height, 76.6, kg, 08/18/18 2:30:00 EST, Dry Weight Start Date: 01/28/20 Stop Date: 02/25/20 Status: Ordered cetirizine 10 mg oral tablet 1 tablet = 10 mg, By Mouth, Daily, PRN for allergy symptoms, # 30 tablet, 2 Refills, Maintenance, 11/06/19 9:21:00 EDT, Tablet, [facility]/pharmacy #[id number], 162.56, cm, 08/02/19 10:02:00 EST, Height, 76.6, kg, 08/18/18 2:30:00 EST, Dry Weight Start Date: 11/06/19 Stop Date: 02/04/20 Status: Ordered EpiPen 2-Thomas 0.3 mg injectable kit = 0.3 mg, Intramuscular, Once, # 1 pack/packet, 0 Refills, Soft Stop, 04/22/19 17:32:16 EDT Start Date: 04/22/19 Status: Ordered Flonase 50 mcg/inh nasal spray 1 sprays, Nares, Both, Daily in AM, # 16 Gm, 1 Refills, Maintenance, 06/01/20 9:35:00 EST, [place], [facility]/pharmacy #[id number], 1 sprays Nares, Both Daily in AM, 162.56, cm, 05/06/20 16:24:00 EST, Height, 76.6, kg, 08/18/18 2:30:00 EST, Dry Weight Start Date: 06/01/20 Status: Ordered levothyroxine 0.112 mg oral tablet 1 tablet = 112 mcg, By Mouth, Daily, dose lowered to 112mcg 12/18/19, # 30 tablet, 5 Refills, Maintenance, 05/29/20 17:50:00 EST, [facility]/pharmacy #[id number], 162.56, cm, 05/06/20 16:24:00 EST, Height, 76.6, kg, 08/18/18 2:30:00 EST, Dry Weight Start Date: 05/29/20 Status: Ordered ProAir HFA 90 mcg/inh inhalation aerosol with adapter 2, puffs, Inhalation, Every 6 hours, PRN, # 8.5 Gm, Refills 11, Tot. Refills 11, Maintenance, 10/22/19 14:57:00 EDT, Aerosol, Route to Pharmacy Electronically, [id number], [facility]/pharmacy #[id number], 162.56, cm, 08/02/19 10:02:00 EST... Start Date: 10/22/19 Status: Ordered Vitamin D3 1000 intl units oral capsule 1 capsule = 1,000 International_Units, By Mouth, Daily, # 90 capsule, 3 Refills, Maintenance, 12/18/19 18:48:00 EDT, [id number], 162.56, cm, 08/02/19 10:02:00 EST, Height, 76.6, kg, 08/18/18 2:30:00 EST, Dry Weight Start Date: 12/18/19 Stop Date: 12/12/20 Status: Ordered Problem List Condition Effective Dates [...] 07/05/06(Confirmed) Active 1F/U by Dr. Gibbs at [facility]. ORal Steroid Trial given. Social History Social History Type Response Smoking Status Former smoker entered on: 11/13/16 Sex Female
--- OUTSIDE RECORDS SUMMARY | 2022-10-03 14:49 | XMS_ITS | Continuity of Care Document ---
Author Name Unknown Organization [facility] Address [address] [place] [address]- Care Team Providers Care Estimating Manager Name Role Phone Srikanth Narayan MD Primary Care Physician [phone] [facility]counter [facility] Date(s): 04/29/19 - 06/14/19 [facility] [address] [place] [address]- [facility] Attending Physician: Not on Staff, Attending MD Allergies, Adverse Reactions, Alerts Substance Reaction Severity Status Keflex Rash Active Lamictal Skin rash. Active Gluten free Active metroNIDAZOLE topical angioedema [...] 8 06/30/08 Gi myesha 1Result Comment: [03/27/2017] [facility] [id number] 2Admin Note: At [facility] 3Admin Note: VIS GIVEN-DATED 01/02/12 4Admin Note: VIS GIVEN VIS DATE 01/25/11 5Admin Note: vis given vis date 02/09/2010 6Admin Note: VIS GIVEN 7Admin Note: VIS GIVEN 8Admin Note: vis given Medications cetirizine 10 mg oral tablet 1 tablet = 10 mg, By Mouth, Daily, PRN for allergy symptoms, # 30 tablet, 0 Refills, Maintenance, 04/22/19 17:29:12 EDT, Tablet Start Date: 04/22/19 Status: Ordered EpiPen 2-Thomas 0.3 mg injectable kit = 0.3 mg, Intramuscular, Once, # 1 pack/packet, 0 Refills, Soft Stop, 04/22/19 17:32:16 EDT Start Date: 04/22/19 Status: Ordered levothyroxine 125 mcg (0.125 mg) oral tablet 1 tablet = 125 mcg, By Mouth, Daily, please have pt book appt, # 30 tablet, 5 Refills, Maintenance,04/09/19 17:03:59 EDT Start Date: 04/09/19 Stop Date: 10/06/19 Status: Ordered predniSONE 20 mg oral tablet 1 tablet = 20 mg, By Mouth, Daily, # 5 tablet, 0 Refills, Maintenance, 04/22/19 17:30:31 EDT, Tablet Start Date: 04/22/19 Stop Date: 04/27/19 Status: Ordered ProAir HFA 90 mcg/inh inhalation aerosol with adapter 2, puffs, Inhalation, Every 6 hours, PRN, # 8.5 Gm, Refills 11, Tot. Refills 11, Maintenance, 01/17/18 10:58:31 EDT, Aerosol, Route to Pharmacy Electronically, [id number], [facility]/pharmacy #[id number] Start Date: 01/17/18 Status: Ordered Problem List Condition Effective Dates Status Health Status Inform ant Adult celiac disease(Confirmed) Active Asthma, Mild Intermittent, S een by Dr. Sanchez/Alicia Michel 2006(Confirmed) Active Bipolar disorder- on Fluoxetine(Confirmed) Active Pyelonephritis complicating - on Keflex suppression(Confirmed) Active Hypothyroidism(Confirmed) Active Polyarthritis(Confirmed) 1 Active Reflux, Laryngeal(Confirmed) Active Severe major depression(Confirmed) Active LEFT Shoulder joint pain, MR I 11/01/06, Type III acromion with impingement. Sched for Sx 07/05/06(Confirmed) Active 1F/U by Dr. Gibbs at [facility]. ORal Steroid Trial given. Social History Social History Type Response Smoking Status Former smoker entered on: 11/13/16 Sex Female
--- OUTSIDE RECORDS SUMMARY | 2022-10-03 14:49 | XMS_ITS | Continuity of Care Document ---
Author Name Unknown Organization [facility] Address [address] [place] [address]- Care Team Providers Care Partnership Development Manager Name Role Phone Srikanth Narayan MD Primary Care Physician [phone] [facility]counter [facility] Date[facility]s): 03/18/21 - 04/17/21 [facility] [address] [place], [place] [address] Allergies, Adverse Reactions, Alerts Substance Reaction Severity [...] 8 06/30/08 Gi myesha 1Result Comment: [03/27/2017] [facility] [id number] 2Admin Note: [facility] 3Admin Note: VIS [...] 10/22/19 14:56:00 EDT, [facility] to Pharmacy Electronically, [id number] 162.56, cm, 08/02/19 10:02:00 EST, Height, 76.6, kg,... Start Date: 10/22/19 Status: Ordered acetaminophen 500 mg oral tablet 2 tablet = 1,000 mg, By Mouth, Every 8 hours, for pain., # 100 tablet, 1 Refills, Maintenance, 05/06/20 17:16:00 EST, [facility]/pharmacy #[id number], 162.56, cm, 05/06/20 16:24:00 EST, Height, 76.6, kg, :30:00 EST, Dry Weight Start Date: 05/06/20 Status: Ordered cetirizine 10 mg oral tablet 1 tablet, By Mouth, Daily, PRN NEEDED FOR ALLERGY SYMPTOMS, # 30 tablet, 5 Refills, Maintenance,02/15/21 8:32:00 EDT, [facility] STORE [id number], 162.56, cm, 11/27/20 9:16:00 EDT, Height Start Date: 02/15/21 Stop Date: 03/17/21 Status: Ordered EpiPen 2-Thomas 0.3 mg injectable kit = 0.3 mg, Intramuscular, Once, # 1 pack/packet, 0 Refills, Soft Stop, 04/22/19 17:32:16 EDT Start Date: 04/22/19 Status: Ordered Flonase 50 mcg/inh nasal spray 1 sprays, Nares, Both, Daily in AM, # 16 Gm, 2 Refills, Maintenance, 11/02/20 14:46:00 EDT, [place], [facility]/pharmacy #[id number], 1 sprays Nares, Both Daily in AM,x30 days, 162.56, cm, 08/20/20 13:28:00 EST, Height Start Date: 11/02/20 Stop Date: 01/31/21 Status: Ordered levothyroxine 0.112 mg oral tablet See Instructions, TAKE 1 TABLET BY MOUTH EVERY DAY, # 30 tablet, 5 Refills, [facility] STORE [id number], 162.56, cm, 03/03/21 15:20:00 EDT, Height Start Date: 03/03/21 Status: Ordered ProAir HFA 90 mcg/inh inhalation aerosol with adapter 2, puffs, Inhalation, Every 6 hours, PRN, # 8.5 Gm, Refills 11, Tot. Refills 11, Maintenance, 10/22/19 14:57:00 EDT, Aerosol, Route to Pharmacy Electronically, [id number], [facility]/pharmacy #[id number], 162.56, cm, 08/02/19 10:02:00 EST... Start Date: 10/22/19 Status: Ordered Right Cock UP Splint Right Cock UP Splint, See Instructions, # 1 each, Refills 0, Tot. Refills 0, Maintenance, Dx: M65.849, 04/05/21 9:33:00 EDT, Supply Start Date: 04/05/21 Status: Ordered Sudafed 30 mg oral tablet 1 tablet = 30 mg, By Mouth, Every 6 hours, PRN Congestion, # 24 tablet, 0 Refills, Maintenance, 03/26/21 18:12:00 EDT, [facility]/pharmacy #[id number], Partial fill upon patient request if [...] Gm, 1 Refills, Maintenance, 02/24/21 16:06:00 EDT, [facility]/pharmacy #[id number], Partial fill upon patient request if [...] 07/05/06(Confirmed) Active 1F/U by Dr. Gibbs at [facility]. ORal Steroid Trial given. Social History Social History Type Response Smoking Status Former smoker entered on: 11/13/16 Sex Female
--- OUTSIDE RECORDS SUMMARY | 2022-10-03 14:50 | XMS_ITS | Continuity of Care Document ---
Author Name Unknown Organization [facility] Address [address] [place] [address]- Care Team Providers Care Global Head Advertiser Solutions Name Role Phone Srikanth Narayan MD Primary Care Physician [facility] Date[facility]s): 01/28/20 - 02/27/20 [facility] [address] [place] [address]- [facility] Attending Physician: Matt Edge Allergies, Adverse Reactions, Alerts Substance Reaction Severity [...] 8 06/30/08 Gi myesha 1Result Comment: [03/27/2017] [facility] [id number] 2Admin Note: [facility] 3Admin Note: VIS [...] 10/22/19 14:56:00 EDT, Route to Pharmacy Electronically, [facility]/pharmacy #[id number], 162.56, cm, 08/02/19 10:02:00 EST, Height, 76.6, kg,... Start Date: 10/22/19 Status: Ordered celecoxib 200 mg oral capsule 1 capsule = 200 mg, By Mouth, Daily, BAUTISTA 2 trials., # 14 capsule, 1 Refills, Maintenance, 01/28/20 9:52:00 EDT, Capsule, [facility]/pharmacy #[id number], 162.56, cm, 12/31/19 8:29:00 EDT, Height, 76.6, kg, 08/18/18 2:30:00 EST, Dry Weight Start Date: 01/28/20 Stop Date: 02/25/20 Status: Ordered cetirizine 10 mg oral tablet 1 tablet = 10 mg, By Mouth, Daily, PRN for allergy symptoms, # 30 tablet, 2 Refills, Maintenance, 11/06/19 9:21:00 EDT, Tablet, [facility]/pharmacy #[id number], 162.56, cm, 08/02/19 10:02:00 EST, Height, 76.6, kg, 08/18/18 2:30:00 EST, Dry Weight Start Date: 11/06/19 Stop Date: 02/04/20 Status: Ordered EpiPen 2-Thomas 0.3 mg injectable kit = 0.3 mg, Intramuscular, Once, # 1 pack/packet, 0 Refills, Soft Stop, 04/22/19 17:32:16 EDT Start Date: 04/22/19 Status: Ordered levothyroxine 0.112 mg oral tablet 1 tablet = 112 mcg, By Mouth, Daily, dose lowered to 112mcg 12/18/19, # 30 tablet, 5 Refills, Maintenance, 12/18/19 18:47:00 EDT, [facility]/pharmacy #[id number], 162.56, cm, 08/02/19 10:02:00 EST, Height, 76.6, kg, 08/18/18 2:30:00 EST, Dry Weight Start Date: 12/18/19 Status: Ordered ProAir HFA 90 mcg/inh inhalation aerosol with adapter 2, puffs, Inhalation, Every 6 hours, PRN, # 8.5 Gm, Refills 11, Tot. Refills 11, Maintenance, 10/22/19 14:57:00 EDT, Aerosol, Route to Pharmacy Electronically, [id number], [facility]/pharmacy #[id number], 162.56, cm, 08/02/19 10:02:00 EST... Start Date: 10/22/19 Status: Ordered Vitamin D3 1000 intl units oral capsule 1 capsule = 1,000 International_Units, By Mouth, Daily, # 90 capsule, 3 Refills, Maintenance, 12/18/19 18:48:00 EDT, [facility]/pharmacy #[id number], 162.56, cm, 08/02/19 10:02:00 EST, Height, [...] 07/05/06(Confirmed) Active 1F/U by Dr. Gibbs at [facility]. ORal Steroid Trial given. Social History Social History Type Response Smoking Status Former smoker entered on: 11/13/16 Sex Female
--- OUTSIDE RECORDS SUMMARY | 2022-10-03 14:50 | XMS_ITS | Continuity of Care Document ---
Author Name Unknown Organization [facility] Address [address] [place] [address]- Care Team Providers Care Russian Teacher Name Role Phone Desmond Hogan Primary Care Physician Encounter [facility] Date(s): 08/24/22 - 09/23/[address] [address] Allergies, Adverse Reactions, Alerts Substance Reaction Severity [...] 8 06/30/08 Gi myesha 1Result Comment: [03/27/2017] [facility]NOTE 2] [id number] 2Admin Note: At [facility] 3Admin Note: VIS GIVEN-DATED 01/02/12 4Admin [...] 10/12/21 10:38:00 EDT, Route to Pharmacy Electronically, [facility]/pharmacy #[id number], Partial fill upon patient request if the prescription is for a sc... Start Date: 10/12/21 Status: Ordered baclofen 10 mg oral tablet 10 mg, 1, tablet, By Mouth, 2 times a day, PRN, # 30 tablet, Refills 0, Tot. Refills 0, Maintenance, muscle spasm, 04/18/22 10:33:00 EDT, Route to Pharmacy Electronically, [facility]/pharmacy #[id number], Partialfill upon patient request if the prescription is fo... Start Date: 04/18/22 Status: Ordered Diflucan 150 mg oral tablet 1 tablet = 150 mg, By Mouth, Once, # 1 tablet, 0 Refills, Soft Stop, 09/05/22 10:23:00 EST, Tablet,[facility]/pharmacy #[id number], Partial fill upon patient request if the prescription is for a schedule II opioid drug., 167, cm, 09/05/22 9:38:00 EST, Height, 87.... Start Date: 09/05/22 Status: Ordered EpiPen 2-Thomas 0.3 mg injectable kit = 0.3 mg, Intramuscular, Once, # 1 pack/packet, 0 Refills, Soft Stop, 04/22/19 17:32:16 EDT Start Date: 04/22/19 Status: Ordered Eucerin Plus topical lotion 1 application, Topically, 2 times a day, PRN for dry skin, Apply within three minutes of bathing for prevention of rash., # 180 mL, 0 Refills, Maintenance, 08/19/22 17:00:00 EST, Lotion, [facility]/pharmacy#0488, Partial fill upon patient request if the pre... Start Date: 08/19/22 Status: Ordered Flovent HFA 110 mcg/inh inhalation aerosol 2 puffs, Inhalation, 2 times a day, rinse mouth and throat after use, # 1 each, 5 Refills, Maintenance, 05/24/22 10:53:00 EST, [id number], Partial fill upon patient request if the prescription is for a schedule II opioid drug., 167, cm, ... Start Date: 05/24/22 Status: Ordered fluconazole 150 mg oral tablet 1 tablet = 150 mg, By Mouth, Once, Repeat dose if still having symptoms in 72 hours, # 2 tablet, 0 Refills, Soft Stop, 11/26/21 14:03:00 EDT, Tablet, [facility]/pharmacy #[id number], Partial fill upon patient request if the prescription is for a schedule II opioid... Start Date: 11/26/21 Status: Ordered fluconazole 150 mg oral tablet 1 tablet = 150 mg, By Mouth, Once, Acute, # 1 tablet, 0 Refills, Soft Stop, 12/06/21 8:08:00 EDT, [facility]/pharmacy #[id number], Partial fill upon patient request if the prescription is for a schedule II opioiddrug., 167, cm, 11/26/21 13:55:00 EDT, Height, 87.9... Start Date: 12/06/21 Status: Ordered FLUoxetine (Eqv-Prozac) 20 mg oral tablet 1 tablet = 20 mg, By Mouth, Daily, # 30 tablet, 1 Refills, Maintenance, 03/16/22 15:00:00 EDT, Tablet, [facility]/pharmacy #[id number], Partial fill upon patient request if the prescription is for a schedule II opioid drug., 167, cm, 03/16/22 13:56:00 EDT, Height,... Start Date: 03/16/22 Stop Date: 05/15/22 Status: Ordered fluticasone 50 mcg/inh nasal spray See Instructions, USE 1 SPRAY INTO EACH NOSTRIL EVERY MORNING FOR 30 DAYS, # 16 mL, 2 Refills, [facility] STORE [address], 30, USE 1 SPRAY INTO EACH NOSTRIL EVERY MORNING FOR 30 DAYS, 167, cm, 11/04/21 10:58:00EDT, Height, 87.9, kg, 08/23/21 21:04:00 EST, Dry W... Start Date: 11/17/21 Status: Ordered hydrocortisone 1% topical cream 1 application, Topically, 2 times a day, Apply in a thin film to the affected facial skin and rub in gently and completely., # 60 Gm, 0 Refills, Maintenance, 08/24/22 14:46:00 EST, Cream, [facility]/pharmacy #[id number], Partial fill upon patient request if the pr... Start Date: 08/24/22 Stop Date: 09/07/22 Status: Ordered left sided cockup wrist splint left sided cockup wrist splint, See Instructions, # 1 each, Refills 0, Tot. Refills 0, Maintenance,wear at night for carpal tunnel dx code G56.0 duration: lifetime, 07/19/22 18:33:00 EST, Supply Start Date: 07/19/22 Status: Ordered levothyroxine 125 mcg (0.125 mg) oral tablet 1 tablet = 125 mcg, By Mouth, Daily, # 30 tablet, 5 Refills, Maintenance, 05/17/22 16:56:00 EST, Tablet, [facility]/pharmacy #[id number], Partial fill upon patient request if the prescription is for a schedule IIopioid drug., 167, cm, 04/18/22 10:00:00 EDT, [facility]... Start Date: 05/17/22 Stop Date: 11/13/22 Status: Ordered ProAir HFA 90 mcg/inh inhalation aerosol with adapter 2, puffs, Inhalation, Every 6 hours, PRN, # 8.5 each, Refills 5, Tot. Refills 5, Maintenance, 10/11/21 10:23:00 EDT, Route to Pharmacy Electronically, [id number], [facility]/pharmacy #[id number], 167, cm, 09/15/21 15:38:00 EDT, [...] tablet, 0 Refills, Maintenance, 03/26/21 18:12:00 EDT, [id number], Partial fill upon patient request if [...] 1 Refills, Maintenance, 02/24/21 16:06:00 EDT, [id number], Partial fill upon patient request if the prescription is for a schedule II opioid drug., 2 Gm Topically 4 times... Start Date: 02/24/21 Status: Ordered Problem List Condition Confirmation Course Effective Dates Status H ealth Status Informant Adult celiac disease Confirmed Active Allergic reaction Confirmed Active Asthma, Mild Intermittent, Seen by Dr. 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 Sched for Sx 07/05/06 Confirmed Active 1F/U by Dr. Gibbs at [facility]. ORal Steroid Trial given. Social History Social History Type Response Smoking Status Never smoker entered on: 08/02/13 Sex Female Patient Care team information Care Team Personnel Name: Desmond Hogan Position: S PCO Associate Professional Member Role: PCP Address: Address: [address] [place] [address] Name: Basia CAROLINA, Jamel Gutierrez Position: [facility] RN Member Role: Primary Care Nurse Name: Candi Eisenberg RN Position: [facility] RN Member Role: Primary Care Nurse Name: Gilmar Mckeon RN Position: [facility] SN RN Member Role: Primary Care Nurse Name: Catalina Reece RN Position: [facility] OB RN Member Role: Primary Care Nurse Name: Elizabeth Rowland RN Position: [facility] Onco RN Member Role: Primary Care Nurse Care Team Related Persons Name: WOLF PIERREARDO Address: [address] [address]
--- OUTSIDE RECORDS SUMMARY | 2022-10-03 14:50 | XMS_ITS | Continuity of Care Document ---
Author Name Unknown Organization [facility] Address [address] [place] [address]- Care Team Providers Care Cone Machine Operator Name Role Phone Srikanth Narayan MD Primary Care Physician [place] [facility] Date(s): 05/14/21 - 06/13/[address] [address] Attending Physician: AdmMatt oliva Admitting Physician: AdmtrMatt Referring Physician: Admtr, Ar8 Allergies, Adverse Reactions, Alerts [...] 8 06/30/08 Gi myesha 1Result Comment: [03/27/2017] [facility] [id number] 2Admin Note: At [facility] 3Admin Note: VIS GIVEN-DATED 01/02/12 4Admin Note: VIS GIVEN VIS DATE 01/25/11 5Admin Note: vis given vis date 02/09/2010 6Admin Note: VIS GIVEN 7Admin Note: VIS GIVEN 8Admin Note: vis given Medications acetaminophen 500 mg oral tablet 2 tablet = 1,000 mg, By Mouth, Every 8 hours, for pain., # 100 tablet, 1 Refills, Maintenance, 05/06/20 17:16:00 EST, [facility]/pharmacy #[id number], 162.56, cm, 05/06/20 16:24:00 EST, Height, 76.6, kg, 192:30:00 EST, Dry Weight Start Date: 05/06/20 Status: Ordered Albuterol (Eqv-ProAir HFA) 90 mcg/inh inhalation aerosol 2 puffs, Inhalation, Every 6 hours, PRN NEEDED FOR WHEEZING/SHORTNESS OF BREATH, # 8.5 each, 5 Refills, Maintenance, 04/26/21 9:56:00 EDT, [facility]/pharmacy #[id number], 25, 2 puffs Inhalation Every 6 hours,PRN: NEEDED FOR WHEEZING/SHORTNESS OF BREATH, 162.... Start Date: 04/26/21 Status: Ordered Azithromycin 5 Day Dose Pack 250 mg oral tablet See Instructions, 1 pack/packet By Mouth as directed on package labeling, # 6 tablet, 0 Refills, Soft Stop, 04/28/21 9:45:00 EDT, Tablet, [facility]/pharmacy #[id number], Partial fill upon patient request if the prescription is for a schedule II opioid drug., 162... Start Date: 04/28/21 Status: Ordered cetirizine 10 mg oral tablet 1 tablet, By Mouth, Daily, PRN NEEDED FOR ALLERGY SYMPTOMS, # 30 tablet, 5 Refills, Maintenance,02/15/21 8:32:00 EDT, [facility], 162.56, cm, 11/27/20 9:16:00 EDT, Height Start Date: 02/15/21 Stop Date: 03/17/21 Status: Ordered EpiPen 2-Thomas 0.3 mg injectable kit = 0.3 mg, Intramuscular, Once, # 1 pack/packet, 0 Refills, Soft Stop, 04/22/19 17:32:16 EDT Start Date: 04/22/19 Status: Ordered fluticasone 50 mcg/inh nasal spray See Instructions, USE 1 SPRAY INTO EACH NOSTRIL EVERY MORNING FOR 30 DAYS, # 16 mL, 5 Refills, [facility], 30, USE 1 SPRAY INTO EACH NOSTRIL EVERY MORNING FOR 30 DAYS, 162.56, cm, 04/02/21 13:19:00 EDT, Height Start Date: 04/19/21 Status: Ordered levothyroxine 0.112 mg oral tablet See Instructions, TAKE 1 TABLET BY MOUTH EVERY DAY, # 30 tablet, 5 Refills, [facility], 162.56, cm, 03/03/21 15:20:00 EDT, Height Start Date: 03/03/21 Status: Ordered Right Cock UP Splint Right [...] 1 Refills, Maintenance, 02/24/21 16:06:00 EDT, [id number], Partial fill upon patient request if the [...] 07/05/06(Confirmed) Active 1F/U by Dr. Gibbs at [facility]. ORal Steroid Trial given. Social History Social History Type Response Smoking Status Former smoker entered on: 11/13/16 Sex Female
--- OUTSIDE RECORDS SUMMARY | 2022-10-03 14:50 | XMS_ITS | Continuity of Care Document ---
Author Name Unknown Organization [facility] Address [address] [place] [address]- Care Team Providers Care Environmental Remediation Consultant Name Role Phone Desmond Hogan Primary Care Physician [facility] - 09/16/22 [facility] [address] [place] [id number] Allergies, Adverse Reactions, Alerts Substance Reaction [...] myesha 1Result Comment: [03/27/2017] [facility] [id number] 2Admin Note: At [facility] 3Admin Note: VIS GIVEN-DATED 01/02/12 4Admin [...] 10/12/21 10:38:00 EDT, [id number] Partial fill upon patient request if the prescription is for a sc... Start Date: 10/12/21 Status: Ordered baclofen 10 mg oral tablet 10 mg, 1, tablet, By Mouth, 2 times a day, PRN, # 30 tablet, Refills 0, Tot. Refills 0, Maintenance, muscle spasm, 04/18/22 10:33:00 EDT, [facility]ically, [id number], Partialfill upon patient request if the prescription is fo... Start Date: 04/18/22 Status: Ordered Diflucan 150 mg oral tablet 1 tablet = 150 mg, By Mouth, Once, # 1 tablet, 0 Refills, Soft Stop, 09/05/22 10:23:00 EST, Tablet,[facility]/pharmacy #[id number], Partial fill upon patient request [...] 0 Refills, Maintenance, 08/19/22 17:00:00 EST, Lotion, [facility]/pharmacy#[id number], Partial fill upon patient request if the pre... Start Date: 08/19/22 Status: Ordered Flovent HFA 110 mcg/inh inhalation aerosol 2 puffs, Inhalation, 2 times a day, rinse mouth and throat after use, # 1 each, 5 Refills, Maintenance, 05/24/22 10:53:00 EST, [facility]/pharmacy #[id number], Partial fill upon patient request if the prescription is for a schedule II opioid drug., 167, cm, 05/24/... Start Date: 05/24/22 Status: Ordered fluconazole 150 mg oral tablet 1 tablet = 150 mg, By Mouth, Once, Repeat dose if still having symptoms in 72 hours, # 2 tablet, 0 Refills, Soft Stop, 11/26/21 14:03:00 EDT, Tablet, [id number], Partial fill upon patient request if the prescription is for a schedule II opioid... Start Date: 11/26/21 Status: Ordered fluconazole 150 mg oral tablet 1 tablet = 150 mg, By Mouth, Once, Acute, # 1 tablet, 0 Refills, Soft Stop, 12/06/21 8:08:00 EDT, [facility]/pharmacy #[id number], Partial fill upon patient request if the prescription is for a schedule II opioiddrug., 167, cm, 11/26/21 13:55:00 EDT, Height, 87.9... Start Date: 12/06/21 Status: Ordered FLUoxetine (Eqv-Prozac) 20 mg oral tablet 1 tablet = 20 mg, By Mouth, Daily, # 30 tablet, 1 Refills, Maintenance, 03/16/22 15:00:00 EDT, Tablet, [facility]/pharmacy #[id number], Partial fill upon patient request if the prescription is for a schedule II opioid drug., 167, cm, 03/16/22 13:56:00 EDT, Height,... Start Date: 03/16/22 Stop Date: 05/15/22 Status: Ordered fluticasone 50 mcg/inh nasal spray See Instructions, USE 1 SPRAY INTO EACH NOSTRIL EVERY MORNING FOR 30 DAYS, # 16 mL, 2 Refills, [id number], 30, USE 1 SPRAY INTO EACH NOSTRIL [...] 0 Refills, Maintenance, 08/24/22 14:46:00 EST, Cream, [facility]/pharmacy #[id number], Partial fill upon patient request [...] 5 Refills, Maintenance, 05/17/22 16:56:00 EST, Tablet, [facility]/pharmacy #[id number], Partial fill upon patient request if the prescription is for a schedule IIopioid drug., 167, cm, 04/18/22 10:00:00 EDT, [place]... Start Date: 05/17/22 Stop Date: 11/13/22 Status: Ordered naproxen 250 mg oral tablet 250 mg, 1, tablet, By Mouth, 2 times a day, for 10 days, with food, # 20 tablet, Refills 0, Tot. Refills 0, Acute 09/17/22 11:49:00 EDT, 09/07/22 11:49:00 EST, Route to Pharmacy Electronically, [facility]/pharmacy #[id number], Partial fill upon patient request if... Start Date: 09/07/22 Stop Date: 09/17/22 Status: Ordered ProAir HFA 90 mcg/inh inhalation aerosol with adapter 2, puffs, Inhalation, Every 6 hours, PRN, # 8.5 each, Refills 5, Tot. Refills 5, Maintenance, 10/11/21 10:23:00 EDT, Route to Pharmacy Electronically, [id number], [facility]/pharmacy #[id number], 167, cm, 09/15/21 15:38:00 EDT, [...] Confirmed Active 1F/U by Dr. Gibbs at [facility]. ORal Steroid Trial given. Social History Social History Type Response Smoking Status Never smoker entered on: 08/02/13 Sex Female Patient Care team information Care Team Personnel Name: Desmond Hogan Position: [facility] PCO Associate Professional Member Role: PCP Address: Address: [address] [place] [address]- Name: Basia CAROLINA, Jamel Gutierrez Position: [facility] ED RN W/OE and Tasks Member Role: Primary Care Nurse Name: Candi Eisenberg RN Position: [facility] RN Member Role: Primary Care Nurse Name: Gilmar Mckeon RN Position: [facility] SN RN Member Role: Primary Care Nurse Name: Catalina Reece RN Position: [facility] OB RN Member Role: Primary Care Nurse Name: Elizabeth Rowland RN Position: [facility] Onco RN Member Role: Primary Care Nurse Care Team Related Persons Name: IGNACIOWOLFALEJO Address: home [address] [place] [address]
--- OUTSIDE RECORDS SUMMARY | 2022-10-03 14:50 | XMS_ITS | Continuity of Care Document ---
Author Name Unknown Organization [facility] Address [address] [place] [address]- Care Team Providers Care Log Tumbler Name Role Phone Srikanth Narayan MD Primary Care Physician [phone] [facility] 03[facility]17[facility]21 - 04/16/[address] [address] Attending Physician: Admtr, Ar8 Allergies, Adverse Reactions, [...] 8 06/30/08 Gi myesha 1Result Comment: [03/27/2017] [facility] [id number] 2Admin Note: At [facility] 3Admin Note: VIS GIVEN-DATED 01/02/12 4Admin Note: [...] EDT, Route to Pharmacy Electronically, [facility]/pharmacy #[id number], 162.56, cm, 08/02/19 10:02:00 EST, Height, 76.6, kg,... Start Date: 10/22/19 Status: Ordered acetaminophen 500 mg oral tablet 2 tablet = 1,000 mg, By Mouth, Every 8 hours, for pain., # 100 tablet, 1 Refills, Maintenance, 05/06/20 17:16:00 EST, [facility]/pharmacy #[id number], 162.56, cm, 05/06/20 16:24:00 EST, Height, 76.6, kg, 192:30:00 EST, Dry Weight Start Date: 05/06/20 Status: Ordered cetirizine 10 mg oral tablet 1 tablet, By Mouth, Daily, PRN NEEDED FOR ALLERGY SYMPTOMS, # 30 tablet, 5 Refills, Maintenance,02/15/21 8:32:00 EDT, [facility] STORE [facility]7072, 162.56, cm, 11/27/20 9:16:00 EDT, Height Start Date: 02/15/21 Stop Date: 03/17/21 Status: Ordered EpiPen 2-Thomas 0.3 mg injectable kit = 0.3 mg, Intramuscular, Once, # 1 pack/packet, 0 Refills, Soft Stop, 04/22/19 17:32:16 EDT Start Date: 04/22/19 Status: Ordered Flonase 50 mcg/inh nasal spray 1 sprays, Nares, Both, Daily in AM, # 16 Gm, 2 Refills, Maintenance, 11/02/20 14:46:00 EDT, [place], [facility]/pharmacy #[id number], 1 sprays Nares, Both Daily in AM,x30 days, 162.56, cm, 08/20/20 13:28:00 EST, Height Start Date: 11/02/20 Stop Date: 01/31/21 Status: Ordered levothyroxine 0.112 mg oral tablet See Instructions, TAKE 1 TABLET BY MOUTH EVERY DAY, # 30 tablet, 5 Refills, [facility] STORE [address]7775, 162.56, cm, 03/03/21 15:20:00 EDT, Height Start Date: 03/03/21 Status: Ordered ProAir HFA 90 mcg/inh inhalation aerosol with adapter 2, puffs, Inhalation, Every 6 hours, PRN, # 8.5 Gm, Refills 11, Tot. Refills 11, Maintenance, 10/22/19 14:57:00 EDT, Aerosol, Route to Pharmacy Electronically, [id number], [facility]/pharmacy #[id number], 162.56, cm, 08/02/19 10:02:00 EST... Start [...] tablet, 0 Refills, Maintenance, 03/26/21 18:12:00 EDT, [facility]/pharmacy #[id number], Partial fill upon patient request if [...] 1 Refills, Maintenance, 02/24/21 16:06:00 EDT, [id number], Partial fill upon patient request if the [...] 07/05/06(Confirmed) Active 1F/U by Dr. Gibbs at [facility]. ORal Steroid Trial given. Social History Social History Type Response Smoking Status Former smoker entered on: 11/13/16 Sex Female
--- OUTSIDE RECORDS SUMMARY | 2022-10-03 14:50 | XMS_ITS | Continuity of Care Document ---
Author Name Unknown Organization [facility] Address [address] [place] [address]- Care Team Providers Care Supervisor Hydrochloric Area Name Role Phone Srikanth Narayan MD Primary Care Physician [phone] [facility] 01[facility]20 - 02/27/20 [facility] [address] [place] [id number]- [facility] Allergies, Adverse Reactions, Alerts Substance Reaction Severity [...] 8 06/30/08 Gi myesha 1Result Comment: [03/27/2017] [facility] [id number] 2Admin Note: [facility] 3Admin Note: VIS [...] 10/22/19 14:56:00 EDT, Route to Pharmacy Electronically, [facility]/pharmacy #[id number], 162.56, cm, 08/02/19 10:02:00 EST, Height, 76.6, kg,... Start Date: 10/22/19 Status: Ordered celecoxib 200 mg oral capsule 1 capsule = 200 mg, By Mouth, Daily, BAUTISTA 2 trials., # 14 capsule, 1 Refills, Maintenance, 01/28/20 9:52:00 EDT, Capsule, [facility]/pharmacy #[id number], 162.56, cm, 12/31/19 8:29:00 EDT, Height, 76.6, kg, 08/18/18 2:30:00 EST, Dry Weight Start Date: 01/28/20 Stop Date: 02/25/20 Status: Ordered cetirizine 10 mg oral tablet 1 tablet = 10 mg, By Mouth, Daily, PRN for allergy symptoms, # 30 tablet, 2 Refills, Maintenance, 11/06/19 9:21:00 EDT, Tablet, [facility]/pharmacy #0488, 162.56, cm, 08/02/19 10:02:00 EST, [...] tablet, 5 Refills, Maintenance, 12/18/19 18:47:00 EDT, [facility]/pharmacy #0488, 162.56, cm, 08/02/19 10:02:00 EST, Height, 76.6, kg, 08/18/18 2:30:00 EST, Dry Weight Start Date: 12/18/19 Status: Ordered ProAir HFA 90 mcg/inh inhalation aerosol with adapter 2, puffs, Inhalation, Every 6 hours, PRN, # 8.5 Gm, Refills 11, Tot. Refills 11, Maintenance, 10/22/19 14:57:00 EDT, Aerosol, Route to Pharmacy Electronically, [id number], [facility]/pharmacy #0488, 162.56, cm, 08/02/19 10:02:00 EST... Start Date: 10/22/19 Status: Ordered Vitamin D3 1000 intl units oral capsule 1 capsule = 1,000 International_Units, By Mouth, Daily, # 90 capsule, 3 Refills, Maintenance, 12/18/19 18:48:00 EDT, [facility]/pharmacy #[id number], 162.56, cm, 08/02/19 10:02:00 EST, [...] 07/05/06(Confirmed) Active 1F/U by Dr. Gibbs at [facility]. ORal Steroid Trial given. Social History Social History Type Response Smoking Status Former smoker entered on: 11/13/16 Sex Female
--- OUTSIDE RECORDS SUMMARY | 2022-10-03 14:50 | XMS_ITS | Continuity of Care Document ---
Author Name Unknown Organization [facility] Address [address] [place] [address]- Care Team Providers Care Wastewater Design Engineer Name Role Phone Srikanth Narayan MD Primary Care Physician [phone] [facility]): 06/23/21 - 07/23/21 [facility] [address] [place] [id number]- Attending Physician: Admtr, Ar8 Allergies, Adverse Reactions, [...] 8 06/30/08 Gi myesha 1Result Comment: [03/27/2017] [facility] [id number] 2Admin Note: At [facility] 3Admin Note: VIS GIVEN-DATED 01/02/12 4Admin Note: VIS GIVEN VIS DATE 01/25/11 5Admin Note: vis given vis date 02/09/2010 6Admin Note: VIS GIVEN 7Admin Note: VIS GIVEN 8Admin Note: vis given Medications acetaminophen 500 mg oral tablet 2 tablet = 1,000 mg, By Mouth, Every 8 hours, for pain., # 100 tablet, 1 Refills, Maintenance, 05/06/20 17:16:00 EST, [facility]/pharmacy #[id number], 162.56, cm, 05/06/20 16:24:00 EST, Height, 76.6, kg, :30:00 EST, Dry Weight Start Date: 05/06/20 Status: Ordered Albuterol (Eqv-ProAir HFA) 90 mcg/inh inhalation aerosol 2 puffs, Inhalation, Every 6 hours, PRN NEEDED FOR WHEEZING/SHORTNESS OF BREATH, # 8.5 each, 5 Refills, Maintenance, 04/26/21 9:56:00 EDT, [facility]/pharmacy #0488, 25, 2 puffs Inhalation Every 6 hours,PRN: NEEDED FOR WHEEZING/SHORTNESS OF BREATH, 162.... Start Date: 04/26/21 Status: Ordered Azithromycin 5 Day Dose Pack 250 mg oral tablet See Instructions, 1 pack/packet By Mouth as directed on package labeling, # 6 tablet, 0 Refills, Soft Stop, 04/28/21 9:45:00 EDT, Tablet, [facility]/pharmacy #0488, Partial fill upon patient request if the prescription is for a schedule II opioid drug., 162... Start Date: 04/28/21 Status: Ordered cetirizine 10 mg oral tablet 1 tablet, By Mouth, Daily, PRN NEEDED FOR ALLERGY SYMPTOMS, # 30 tablet, 5 Refills, Maintenance,02/15/21 8:32:00 EDT, [facility], 162.56, cm, 11/27/20 9:16:00 EDT, Height Start Date: 02/15/21 Stop Date: 03/17/21 Status: Ordered EpiPen 2-Thomas 0.3 mg injectable kit = 0.3 mg, Intramuscular, Once, # 1 pack/packet, 0 Refills, Soft Stop, 04/22/19 17:32:16 EDT Start Date: 04/22/19 Status: Ordered fluticasone 50 mcg/inh nasal spray See Instructions, USE 1 SPRAY INTO EACH NOSTRIL EVERY MORNING FOR 30 DAYS, # 16 mL, 5 Refills, [facility] ST[facility] [address], 30, USE 1 SPRAY INTO EACH NOSTRIL EVERY MORNING FOR 30 DAYS, 162.56, cm, 04/02/21 13:19:00 EDT, Height Start Date: 04/19/21 Status: Ordered levothyroxine 0.112 mg oral tablet See Instructions, TAKE 1 TABLET BY MOUTH EVERY DAY, # 30 tablet, 2 Refills, 06/14/21 15:32:00 EST, [facility]/pharmacy #[id number], duplicate rx. original sent 03/03/21. remaining [...] tablet, 0 Refills, Maintenance, 03/26/21 18:12:00 EDT, [facility]/pharmacy #0488, Partial fill upon patient request if [...] Gm, 1 Refills, Maintenance, 02/24/21 16:06:00 EDT, [facility]/pharmacy #0488, Partial fill upon patient request if [...] 07/05/06(Confirmed) Active 1F/U by Dr. Gibbs at [facility]. ORal Steroid Trial given. Social History Social History Type Response Smoking Status Former smoker entered on: 11/13/16 Sex Female
--- OUTSIDE RECORDS SUMMARY | 2022-10-03 14:50 | XMS_ITS | Continuity of Care Document ---
Author Name Unknown Organization [facility] Address [address] [place] [address]- Care Team Providers Care Tube Room Supervisor Name Role Phone Sylvain LOVE, Srikanth Holguin Primary Care Physician [phone] [facility]s): 09[facility]10/21 - 12/12/21 [facility] [address] [place] [address]- Attending Physician: Srikanth Narayan MD Admitting Physician: Srikanth Narayan MD Allergies, Adverse Reactions, Alerts Substance Reaction [...] 8 06/30/08 Gi myesha 1Result Comment: [03/27/2017] [facility] [id number] 2Admin Note: At [facility] 3Admin Note: VIS GIVEN-DATED 01/02/12 4Admin [...] 10/12/21 10:38:00 EDT, Route to Pharmacy Electronically, [facility]/pharmacy #[id number], Partial fill upon patient request if the prescription is for a sc... Start Date: 10/12/21 Status: Ordered clindamycin topical 2% cream 1 applicator, Vaginally, Daily at bedtime, for 7 days, # 40 Gm, 0 Refills, Acute 12/13/21 8:14:00 EDT, 12/06/21 8:14:00 EDT, Cream, [facility]/pharmacy #[id number], Partial fill upon patient request if the prescription is for a schedule II opioid drug., 1 applicat... Start Date: 12/06/21 Stop Date: 12/13/21 Status: Ordered EpiPen 2-Thomas 0.3 mg injectable kit = 0.3 mg, Intramuscular, Once, # 1 pack/packet, 0 Refills, Soft Stop, 04/22/19 17:32:16 EDT Start Date: 04/22/19 Status: Ordered fluconazole 150 mg oral tablet 1 tablet = 150 mg, By Mouth, Once, Repeat dose if still having symptoms in 72 hours, # 2 tablet, 0 Refills, Soft Stop, 11/26/21 14:03:00 EDT, Tablet, [facility]/pharmacy #[id number], Partial fill upon patient request if the prescription is for a schedule II opioid... Start Date: 11/26/21 Status: Ordered fluconazole 150 mg oral tablet 1 tablet = 150 mg, By Mouth, Once, Acute, # 1 tablet, 0 Refills, Soft Stop, 12/06/21 8:08:00 EDT, [facility]/pharmacy #[id number], Partial fill upon patient request if the prescription is for a schedule II opioiddrug., 167, cm, 11/26/21 13:55:00 EDT, Height, 87.9... Start Date: 12/06/21 Status: Ordered fluticasone 50 mcg/inh nasal spray See Instructions, USE 1 SPRAY INTO EACH NOSTRIL EVERY MORNING FOR 30 DAYS, # 16 mL, 2 Refills, [facility] STORE [facility], 30, USE 1 SPRAY INTO EACH NOSTRIL EVERY MORNING FOR 30 DAYS, 167, cm, 11/04/21 10:58:00EDT, Height, 87.9, kg, 08/23/21 21:04:00 EST, Dry W... Start Date: 11/17/21 Status: Ordered levothyroxine 125 mcg (0.125 mg) oral tablet 1 tablet = 125 mcg, By Mouth, Daily, # 90 tablet, 3 Refills, Maintenance, 10/20/21 17:29:00 EDT, Tablet, [facility]/pharmacy #0488, Partial fill upon patient request if the prescription is for a schedule IIopioid drug., 167, cm, 10/12/21 10:13:00 EDT, Heigh... Start Date: 10/20/21 Stop Date: 10/15/22 Status: Ordered ProAir HFA 90 mcg/inh inhalation aerosol with adapter 2, puffs, Inhalation, Every 6 hours, PRN, # 8.5 each, Refills 5, Tot. Refills 5, Maintenance, 10/11/21 10:23:00 EDT, Route to Pharmacy Electronically, [id number], [facility]/pharmacy #[id number], 167, cm, 09/15/21 15:38:00 EDT, Height, [...] 07/05/06(Confirmed) Active 1F/U by Dr. Gibbs at [facility]. ORal Steroid Trial given. Social History Social History Type Response Smoking Status Former smoker entered on: 11/13/16 Sex Female
--- OUTSIDE RECORDS SUMMARY | 2022-10-03 14:50 | XMS_ITS | Continuity of Care Document ---
Author Name Unknown Organization [facility] Address [address] [place] [address]- Care Team Providers Care Soldering Machine Feeder Name Role Phone Srikanth Narayan MD Primary Care Physician [phone] [facility]): 05/29/20 - 06/28/20 [facility] [address] [place] [address]- Allergies, Adverse Reactions, Alerts Substance Reaction Severity [...] 8 06/30/08 Gi myesha 1Result Comment: [03/27/2017] [facility] [id number] 2[facility] Note: [facility] 3Admin Note: VIS [...] 10/22/19 14:56:00 EDT, Route to Pharmacy Electronically, [facility]/pharmacy #0488, 162.56, cm, 08/02/19 10:02:00 EST, Height, 76.6, kg,... Start Date: 10/22/19 Status: Ordered acetaminophen 500 mg oral tablet 2 tablet = 1,000 mg, By Mouth, Every 8 hours, for pain., # 100 tablet, 1 Refills, Maintenance, 05/06/20 17:16:00 EST, [facility]/pharmacy #0488, 162.56, cm, 05/06/20 16:24:00 EST, Height, 76.6, kg, 192:30:00 EST, Dry Weight Start Date: 05/06/20 Status: Ordered baclofen 10 mg oral tablet 10 mg, 1, tablet, By Mouth, 3 times a day, for pain., # 15 tablet, Refills 0, Tot. Refills 0, Maintenance, 05/06/20 17:15:00 EST, Route to Pharmacy Electronically, [facility]/pharmacy #0488, 162.56, cm, 05/06/20 16:24:00 EST, Height, 76.6, kg, 08/18/18 2:30:... Start Date: 05/06/20 Stop Date: 05/11/20 Status: Ordered celecoxib 200 mg oral capsule 1 capsule = 200 mg, By Mouth, Daily, BAUTISTA 2 trials., # 14 capsule, 1 Refills, Maintenance, 01/28/20 9:52:00 EDT, Capsule, [facility]/pharmacy #0488, 162.56, cm, 12/31/19 8:29:00 EDT, Height, 76.6, kg, 08/18/18 2:30:00 EST, Dry Weight Start Date: 01/28/20 Stop Date: 02/25/20 Status: Ordered cetirizine 10 mg oral tablet 1 tablet = 10 mg, By Mouth, Daily, PRN for allergy symptoms, # 30 tablet, 2 Refills, Maintenance, 11/06/19 9:21:00 EDT, Tablet, [facility]/pharmacy #0488, 162.56, cm, 08/02/19 [...] Gm, 1 Refills, Maintenance, 06/01/20 9:35:00 EST, [place], [facility]/pharmacy #0488, 1 sprays Nares, Both Daily in AM, 162.56, cm, 05/06/20 16:24:00 EST, Height, 76.6, kg, 08/18/18 2:30:00 EST, Dry Weight Start Date: 06/01/20 Status: Ordered levothyroxine 0.112 mg oral tablet 1 tablet = 112 mcg, By Mouth, Daily, dose lowered to 112mcg 12/18/19, # 30 tablet, 5 Refills, Maintenance, 05/29/20 17:50:00 EST, [facility]/pharmacy #0488, 162.56, cm, 05/06/20 16:24:00 EST, Height, 76.6, kg, 08/18/18 2:30:00 EST, Dry Weight Start Date: 05/29/20 Status: Ordered ProAir HFA 90 mcg/inh inhalation aerosol with adapter 2, puffs, Inhalation, Every 6 hours, PRN, # 8.5 Gm, Refills 11, Tot. Refills 11, Maintenance, 10/22/19 14:57:00 EDT, Aerosol, Route to Pharmacy Electronically, [id number], [facility]/pharmacy #0488, 162.56, cm, 08/02/19 [...] 07/05/06(Confirmed) Active 1F/U by Dr. Gibbs at [facility]. ORal Steroid Trial given. Social History Social History Type Response Smoking Status Former smoker entered on: 11/13/16 Sex Female
--- OUTSIDE RECORDS SUMMARY | 2022-10-03 14:50 | XMS_ITS | Continuity of Care Document ---
Author Name Unknown Organization [facility] Address [address] [place] [address]- Care Team Providers Care Leather Polisher Name Role Phone Sylvain LOVE, Srikanth Holguin Primary Care Physician [facility] 07[facility]/20 - 08/07/20 [facility] [address] [address] Allergies, Adverse Reactions, Alerts [...] 8 06/30/08 Gi myesha 1Result Comment: [03/27/2017] [facility] [id number] 2Admin Note: [facility] 3Admin Note: VIS [...] EDT, [id number] 162.56, cm, 08/02/19 10:02:00 EST, Height, 76.6, kg,... Start Date: 10/22/19 Status: Ordered acetaminophen 500 mg oral tablet 2 tablet = 1,000 mg, By Mouth, Every 8 hours, for pain., # 100 tablet, 1 Refills, Maintenance, 05/06/20 17:16:00 EST, [facility]/pharmacy #[id number], 162.56, cm, 05/06/20 16:24:00 EST, Height, 76.6, kg, 192:30:00 EST, Dry Weight Start Date: 05/06/20 Status: Ordered baclofen 10 mg oral tablet 10 mg, 1, tablet, By Mouth, 3 times a day, for pain., # 15 tablet, Refills 0, Tot. Refills 0, Maintenance, 05/06/20 17:15:00 EST, [id number], 162.56, cm, 05/06/20 16:24:00 EST, Height, 76.6, kg, 08/18/18 2:30:... Start Date: 05/06/20 Stop Date: 05/11/20 Status: Ordered celecoxib 200 mg oral capsule 1 capsule = 200 mg, By Mouth, Daily, BAUTISTA 2 trials., # 14 capsule, 1 Refills, Maintenance, 01/28/20 9:52:00 EDT, Capsule, [facility]/pharmacy #[id number], 162.56, cm, 12/31/19 8:29:00 EDT, Height, 76.6, kg, 08/18/18 2:30:00 EST, Dry Weight Start Date: 01/28/20 Stop Date: 02/25/20 Status: Ordered cetirizine 10 mg oral tablet 1 tablet = 10 mg, By Mouth, Daily, PRN for allergy symptoms, # 30 tablet, 2 Refills, Maintenance, 11/06/19 9:21:00 EDT, Tablet, [facility]/pharmacy #[id number], 162.56, cm, 08/02/19 10:02:00 EST, [...] Gm, 1 Refills, Maintenance, 06/01/20 9:35:00 EST, [place], [facility]/pharmacy #[id number], 1 sprays Nares, Both Daily in AM, 162.56, cm, 05/06/20 16:24:00 EST, Height, 76.6, kg, 08/18/18 2:30:00 EST, Dry Weight Start Date: 06/01/20 Status: Ordered levothyroxine 0.112 mg oral tablet 1 tablet = 112 mcg, By Mouth, Daily, dose lowered to 112mcg 12/18/19, # 30 tablet, 5 Refills, Maintenance, 05/29/20 17:50:00 EST, [facility]/pharmacy #[id number], 162.56, cm, 05/06/20 16:24:00 EST, Height, 76.6, kg, 08/18/18 2:30:00 EST, Dry Weight Start Date: 05/29/20 Status: Ordered ProAir HFA 90 mcg/inh inhalation aerosol with adapter 2, puffs, Inhalation, Every 6 hours, PRN, # 8.5 Gm, Refills 11, Tot. Refills 11, Maintenance, 10/22/19 14:57:00 EDT, Aerosol, Route to Pharmacy Electronically, [id number], [facility]/pharmacy #[id number], 162.56, cm, 08/02/19 10:02:00 EST... [...] 07/05/06(Confirmed) Active 1F/U by Dr. Gibbs at [facility]. ORal Steroid Trial given. Social History Social History Type Response Smoking Status Former smoker entered on: 11/13/16 Sex Female
--- OUTSIDE RECORDS SUMMARY | 2022-10-03 14:50 | XMS_ITS | Continuity of Care Document ---
Author Name Unknown Organization [facility] Address [address] [place] [address]- Care Team Providers Care Kinesiology Professor Name Role Phone Srikanth Narayan MD Primary Care Physician [facility] Date[facility]s): 09/15/21 - 10/15/21 [facility] [address] [place] [address]- Allergies, Adverse Reactions, Alerts Substance Reaction Severity [...] 8 06/30/08 Gi myesha 1Result Comment: [03/27/2017] [facility] [id number] 2Admin Note: At [facility] 3Admin Note: VIS GIVEN-DATED 01/02/12 4Admin [...] 10/12/21 10:38:00 EDT, Route to Pharmacy Electronically, [facility]/pharmacy #[id number], Partial fill upon patient request if the prescription is for a sc... Start Date: 10/12/21 Status: Ordered Azithromycin 5 Day Dose Pack 250 mg oral tablet See Instructions, 1 pack/packet By Mouth as directed on package labeling, # 6 tablet, 0 Refills, Soft Stop, 04/28/21 9:45:00 EDT, Tablet, [facility]/pharmacy #[id number], Partial fill upon patient request if the prescription is for a schedule II opioid drug., 162... Start Date: 04/28/21 Status: Ordered EpiPen 2-Thomas 0.3 mg injectable kit = 0.3 mg, Intramuscular, Once, # 1 pack/packet, 0 Refills, Soft Stop, 04/22/19 17:32:16 EDT Start Date: 04/22/19 Status: Ordered fluticasone 50 mcg/inh nasal spray See Instructions, USE 1 SPRAY INTO EACH NOSTRIL EVERY MORNING FOR 30 DAYS, # 16 mL, 5 Refills, [facility], 30, USE 1 SPRAY INTO EACH NOSTRIL EVERY MORNING FOR 30 DAYS, 162.56, cm, 04/02/21 13:19:00 EDT, Height Start Date: 04/19/21 Status: Ordered levothyroxine 0.112 mg oral tablet 1 tablet, By Mouth, Daily, # 90 tablet, 3 Refills, Maintenance, 09/21/21 19:55:00 EDT, [facility]/pharmacy#[id number], 167, cm, 09/15/21 15:38:00 EDT, Height, 87.9, kg, 08/23/21 21:04:00 EST, Dry Weight Start Date: 09/21/21 Stop Date: 09/16/22 Status: Ordered levothyroxine 125 mcg (0.125 mg) oral capsule 1 capsule = 125 mcg, By Mouth, Daily, dose increase to 125mcg 10/14/21, # 30 capsule, 5 Refills, Maintenance, 10/14/21 14:32:00 EDT, [facility]/pharmacy #[id number], Partial fill upon patient request if the prescription is for a schedule II opioid drug., 167, cm, 0... Start Date: 10/14/21 Status: Ordered naproxen 250 mg oral tablet 250 mg, 1, tablet, By Mouth, 2 times a day, PRN, for 14 days, with food, # 28 tablet, Refills 1, Tot. Refills 1, Acute 11/09/21 10:38:00 EDT, for pain, 10/12/21 10:38:00 EDT, Route to Pharmacy Electronically, [facility]/pharmacy #[id number], Partial fill upon hunter... Start Date: 10/12/21 Stop Date: 11/09/21 Status: Ordered ProAir HFA 90 mcg/inh inhalation aerosol with adapter 2, puffs, Inhalation, Every 6 hours, PRN, # 8.5 each, Refills 5, Tot. Refills 5, Maintenance, 10/11/21 10:23:00 EDT, Route to Pharmacy Electronically, [id number], [id number], 167, cm, 09/15/21 15:38:00 EDT, Height, [...] 07/05/06(Confirmed) Active 1F/U by Dr. Gibbs at [facility]. ORal Steroid Trial given. Social History Social History Type Response Smoking Status Former smoker entered on: 11/13/16 Sex Female
--- OUTSIDE RECORDS SUMMARY | 2022-10-03 14:50 | XMS_ITS | Continuity of Care Document ---
Author Name Unknown Organization [facility] Address [address] [place] [address]- Care Team Providers Care Braker Passenger Train Name Role Phone Sylvain LOVE, Srikanth Holguin Primary Care Physician [place] [facility] [place]): 10/22/19 - 10/29/19 [facility] [address] [place] [address]- [facility] Encounter Diagnosis Right knee pain(Discharge Diagnosis) - 10/22/19 Attending Physician: Chirag LOVE, Bert Barlow Admitting Physician: Kassandra LOVE, Cash Ham Allergies, Adverse Reactions, Alerts Substance Reaction Severity [...] 8 06/30/08 Gi myesha 1Result Comment: [03/27/2017] [facility] [id number] 2Admin Note: At [facility] 3Admin Note: VIS GIVEN-DATED 01/02/12 4Admin Note: [...] 10/22/19 14:56:00 EDT, [id number] 162.56, cm, 08/02/19 10:02:00 EST, Height, 76.6, kg,... Start Date: 10/22/19 Status: Ordered cetirizine 10 mg oral tablet 1 tablet = 10 mg, By Mouth, Daily, PRN for allergy symptoms, # 30 tablet, 2 Refills, Maintenance, 08/05/19 9:58:00 EST, Tablet[id number] 162.56, cm, 08/02/19 10:02:00 EST, Height, 76.6, kg, 08/18/18 2:30:00 EST, Dry Weight Start Date: 08/05/19 Stop Date: 11/03/19 Status: Ordered diclofenac 1% topical gel 1 application, Topically, 4 times a day, # 100 Gm, 0 Refills, Maintenance, 10/22/19 14:57:00 EDT, Gel, [facility]/pharmacy #[id number], 162.56, cm, 08/02/19 10:02:00 EST, Height, 76.6, kg, 08/18/18 2:30:00 EST, Dry Weight Start Date: 10/22/19 Status: Ordered EpiPen 2-Thomas 0.3 mg injectable kit = 0.3 mg, Intramuscular, Once, # 1 pack/packet, 0 Refills, Soft Stop, 04/22/19 17:32:16 EDT Start Date: 04/22/19 Status: Ordered levothyroxine 125 mcg (0.125 mg) oral tablet 1 tablet = 125 mcg, By Mouth, Daily, # 30 tablet, 5 Refills, Maintenance, 10/02/19 15:08:00 EDT, [facility]/pharmacy #[id number], 162.56, cm, 08/02/19 10:02:00 EST, Height, 76.6, kg, 08/18/18 2:30:00 EST, Dry Weight Start Date: 10/02/19 Stop Date: 03/30/20 Status: Ordered ProAir HFA 90 mcg/inh inhalation aerosol with adapter 2, puffs, Inhalation, Every 6 hours, PRN, # 8.5 Gm, Refills 11, Tot. Refills 11, Maintenance, 10/22/19 14:57:00 EDT, Aerosol, Route to Pharmacy Electronically, [id number], [facility]/pharmacy #[id number], 162.56, cm, 08/02/19 10:02:00 EST... Start Date: 10/22/19 Status: Ordered Problem List Condition Effective Dates [...] 07/05/06(Confirmed) Active 1F/U by Dr. Gibbs at [facility]. ORal Steroid Trial given. Diagnosis Diagnosis Type Effective Dates Health Status Cl inical Service Informant Right knee pain Discharge Diagnosis 10/22/19 Social History Social History Type Response Smoking Status Former smoker entered on: 11/13/16 Sex Female
--- OUTSIDE RECORDS SUMMARY | 2022-10-03 14:50 | XMS_ITS | Continuity of Care Document ---
Author Name Unknown Organization [facility] Address [address] [place] [address]- Care Team Providers Care Copping Machine Operator Name Role Phone Srikanth Narayan MD Primary Care Physician [phone] [facility] 07/01/21 - 07/31/21 [facility] [address] [place] [address]- Allergies, Adverse Reactions, Alerts Substance Reaction Severity [...] 06/30/08 Gi myesha 1Result Comment: [03/27/2017] [facility] [id number] 2Admin Note: At [facility] 3Admin Note: VIS GIVEN-DATED 01/02/12 4Admin Note: VIS GIVEN VIS DATE 01/25/11 5Admin Note: vis given vis date 02/09/2010 6Admin Note: VIS GIVEN 7Admin Note: VIS GIVEN 8Admin Note: vis given Medications acetaminophen 500 mg oral tablet 2 tablet = 1,000 mg, By Mouth, Every 8 hours, for pain., # 100 tablet, 1 Refills, Maintenance, 05/06/20 17:16:00 EST, [facility]/pharmacy #[id number], 162.56, cm, 05/06/20 16:24:00 EST, Height, 76.6, kg, :30:00 EST, Dry Weight Start Date: 05/06/20 Status: Ordered Albuterol (Eqv-ProAir HFA) 90 mcg/inh inhalation aerosol 2 puffs, Inhalation, Every 6 hours, PRN NEEDED FOR WHEEZING/SHORTNESS OF BREATH, # 8.5 each, 5 Refills, Maintenance, 04/26/21 9:56:00 EDT, [facility]/pharmacy #[id number], 25, 2 puffs Inhalation Every 6 hours,PRN: NEEDED FOR WHEEZING/SHORTNESS OF BREATH, 162.... Start Date: 04/26/21 Status: Ordered Azithromycin 5 Day Dose Pack 250 mg oral tablet See Instructions, 1 pack/packet By Mouth as directed on package labeling, # 6 tablet, 0 Refills, Soft Stop, 04/28/21 9:45:00 EDT, Tablet, [facility]/pharmacy #[id number], Partial fill upon patient request if the prescription is for a schedule II opioid drug., 162... Start Date: 04/28/21 Status: Ordered cetirizine 10 mg oral tablet 1 tablet, By Mouth, Daily, PRN NEEDED FOR ALLERGY SYMPTOMS, # 30 tablet, 5 Refills, Maintenance,02/15/21 8:32:00 EDT, [facility] STORE [address]43, 162.56, cm, 11/27/20 9:16:00 EDT, Height Start Date: 02/15/21 Stop Date: 03/17/21 Status: Ordered EpiPen 2-Thomas 0.3 mg injectable kit = 0.3 mg, Intramuscular, Once, # 1 pack/packet, 0 Refills, Soft Stop, 04/22/19 17:32:16 EDT Start Date: 04/22/19 Status: Ordered fluticasone 50 mcg/inh nasal spray See Instructions, USE 1 SPRAY INTO EACH NOSTRIL EVERY MORNING FOR 30 DAYS, # 16 mL, 5 Refills, [facility] [address], 30, USE 1 SPRAY INTO EACH NOSTRIL EVERY MORNING FOR 30 DAYS, 162.56, cm, 04/02/21 13:19:00 EDT, Height Start Date: 04/19/21 Status: Ordered levothyroxine 0.112 mg oral tablet See Instructions, TAKE 1 TABLET BY MOUTH EVERY DAY, # 30 tablet, 2 Refills, 06/14/21 15:32:00 EST, [facility]/pharmacy #[id number], duplicate rx. original sent 03/03/21. remaining [...] tablet, 0 Refills, Maintenance, 03/26/21 18:12:00 EDT, [facility]/pharmacy #[id number], Partial fill upon patient [...] 1 Refills, Maintenance, 02/24/21 16:06:00 EDT, [id number], Partial fill upon patient request if the [...] 07/05/06(Confirmed) Active 1F/U by Dr. Gibbs at [facility]. ORal Steroid Trial given. Social History Social History Type Response Smoking Status Former smoker entered on: 11/13/16 Sex Female
--- OUTSIDE RECORDS SUMMARY | 2022-10-03 14:50 | XMS_ITS | Continuity of Care Document ---
Author Name Unknown Organization [facility] Address [address] [place] [address]- Care Team Providers Care Carpenter Repair Name Role Phone Srikanth Narayan MD Primary Care Physician [phone] [facility]s): 08/24/21 - 09/23/21 [facility] [address] [place] [address]- Allergies, Adverse Reactions, Alerts Substance Reaction Severity [...] 8 06/30/08 Gi myesha 1Result Comment: [03/27/2017] [facility] [id number] 2Admin Note: At [facility] 3Admin Note: VIS GIVEN-DATED 01/02/12 4Admin Note: VIS GIVEN VIS DATE 01/25/11 5Admin Note: vis given vis date 02/09/2010 6Admin Note: VIS GIVEN 7Admin Note: VIS GIVEN 8Admin Note: vis given Medications acetaminophen 500 mg oral tablet 2 tablet = 1,000 mg, By Mouth, Every 8 hours, for pain., # 100 tablet, 1 Refills, Maintenance, 05/06/20 17:16:00 EST, [facility]/pharmacy #[id number], 162.56, cm, 05/06/20 16:24:00 EST, Height, 76.6, kg, :30:00 EST, Dry Weight Start Date: 05/06/20 Status: Ordered Albuterol (Eqv-ProAir HFA) 90 mcg/inh inhalation aerosol 2 puffs, Inhalation, Every 6 hours, PRN NEEDED FOR WHEEZING/SHORTNESS OF BREATH, # 8.5 each, 5 Refills, Maintenance, 04/26/21 9:56:00 EDT, [facility]/pharmacy #[id number], 25, 2 puffs Inhalation Every 6 hours,PRN: NEEDED FOR WHEEZING/SHORTNESS OF BREATH, 162.... Start Date: 04/26/21 Status: Ordered Azithromycin 5 Day Dose Pack 250 mg oral tablet See Instructions, 1 pack/packet By Mouth as directed on package labeling, # 6 tablet, 0 Refills, Soft Stop, 04/28/21 9:45:00 EDT, Tablet, [facility]/pharmacy #[id number], Partial fill upon patient [...] 30 DAYS, # 16 mL, 5 Refills, [facility] [address]67, 30, USE 1 SPRAY INTO EACH NOSTRIL EVERY MORNING FOR 30 DAYS, 162.56, cm, 04/02/21 13:19:00 EDT, Height Start Date: 04/19/21 Status: Ordered levothyroxine 0.112 mg oral tablet 1 tablet, By Mouth, Daily, # 90 tablet, 3 Refills, Maintenance, 09/21/21 19:55:00 EDT, [facility]/pharmacy#0488, 167, cm, 09/15/21 15:38:00 EDT, Height, 87.9, kg, 08/23/21 21:04:00 EST, Dry Weight Start Date: 09/21/21 Stop Date: 09/16/22 Status: Ordered naproxen 250 mg oral tablet 250 mg, 1, tablet, By Mouth, 2 times a day, PRN, for 14 days, with food, # 28 tablet, Refills 1, Tot. Refills 1, Acute 10/13/21 16:33:00 EDT, for pain, 09/15/21 16:33:00 EDT, Route to Pharmacy Electronically, [facility]/pharmacy #[id number], Partial fill upon hunter... Start Date: 09/15/21 Stop Date: 10/13/21 Status: Ordered Right Cock UP Splint Right [...] Gm, 1 Refills, Maintenance, 02/24/21 16:06:00 EDT, [facility]/pharmacy #[id number], Partial fill upon patient request if the [...] 07/05/06(Confirmed) Active 1F/U by Dr. Gibbs at [facility]. ORal Steroid Trial given. Social History Social History Type Response Smoking Status Former smoker entered on: 11/13/16 Sex Female
--- OUTSIDE RECORDS SUMMARY | 2022-10-03 14:50 | XMS_ITS | Continuity of Care Document ---
Author Name Unknown Organization [facility] Address [address] [place] [address]- Care Team Providers Care Concrete Vibrator Operator Name Role Phone Srikanth Narayan MD Primary Care Physician [facility] 07[facility]15/19 - 07/25/19 [facility] [address] [place] [address]- [facility] Attending Physician: Admtr, Ar8 Allergies, Adverse Reactions, [...] 8 06/30/08 Gi myesha 1Result Comment: [03/27/2017] [facility] [id number] 2[facility] 3Admin Note: VIS [...] 10:58:31 EDT, Aerosol, Route to Pharmacy Electronically, [id number], [facility]/pharmacy #[id number] Start Date: 01/17/18 Status: Ordered Problem [...] 07/05/06(Confirmed) Active 1F/U by Dr. Gibbs at [facility] [facility]. ORal Steroid Trial given. Social History Social History Type Response Smoking Status Former smoker entered on: 11/13/16 Sex Female
--- OUTSIDE RECORDS SUMMARY | 2022-10-03 14:50 | XMS_ITS | Continuity of Care Document ---
Author Name Unknown Organization [facility] Address [address] [place] [address]- Care Team Providers Care Stevedoring Superintendent Name Role Phone Srikanth Narayan MD Primary Care Physician [facility]): 09[facility]16/19 - 09/26/19 [facility] [address] [place] [address]- [facility] Attending Physician: Admtr, Ar8 Allergies, Adverse Reactions, [...] 8 06/30/08 Gi myesha 1Result Comment: [03/27/2017] [facility] [id number] 2[facility]: [facility] 3Admin Note: VIS GIVEN-DATED 01/02/12 4Admin Note: VIS GIVEN VIS DATE 01/25/11 5Admin Note: vis given vis date 02/09/2010 6Admin Note: VIS GIVEN 7Admin Note: VIS GIVEN 8Admin Note: vis given Medications cetirizine 10 mg oral tablet 1 tablet = 10 mg, By Mouth, Daily, PRN for allergy symptoms, # 30 tablet, 2 Refills, Maintenance, 08/05/19 9:58:00 EST, Tablet, [facility]/pharmacy #[id number], 162.56, cm, 08/02/19 10:02:00 EST, Height, 76.6, kg, 08/18/18 2:30:00 EST, Dry Weight Start Date: 08/05/19 Stop Date: 11/03/19 Status: Ordered EpiPen 2-Thomas 0.3 mg injectable [...] Date: 04/09/19 Stop Date: 10/06/19 Status: Ordered meloxicam 7.5 mg oral tablet 1 tablet = 7.5 mg, By Mouth, Daily, PRN Pain , Moderate, # 14 tablet, 0 Refills, Maintenance, 08/02/19 10:47:00 EST, Tablet, [facility]/pharmacy #[id number], 162.56, cm, 08/02/19 10:02:00 EST, Height, 76.6, kg, 08/18/18 2:30:00 EST, Dry Weight Start Date: 08/02/19 Stop Date: 08/16/19 Status: Ordered predniSONE 20 mg oral tablet [...] 10:58:31 EDT, Aerosol, Route to Pharmacy Electronically, [id number], [facility]/pharmacy #[id number] Start Date: 01/17/18 Status: Ordered Problem [...] 07/05/06(Confirmed) Active 1F/U by Dr. Gibbs at [facility]. ORal Steroid Trial given. Social History Social History Type Response Smoking Status Former smoker entered on: 11/13/16 Sex Female
--- OUTSIDE RECORDS SUMMARY | 2022-10-03 14:50 | XMS_ITS | Continuity of Care Document ---
Author Name Unknown Organization [facility] Address [address] [place] [address]- Care Team Providers Care Steam Tank Operator Name Role Phone Srikanth Narayan MD Primary Care Physician [phone] [facility] 07[facility]21 - 07/31/21 [facility] [address] [place] [address]- Allergies, Adverse Reactions, Alerts Substance Reaction Severity [...] Gi myesha 1Result Comment: [03/27/2017] [facility] [id number] 2Admin Note: At [facility] 3Admin Note: VIS GIVEN-DATED 01/02/12 4Admin Note: VIS GIVEN VIS DATE 01/25/11 5Admin Note: vis given vis date 02/09/2010 6Admin Note: VIS GIVEN 7Admin Note: VIS GIVEN 8Admin Note: vis given Medications acetaminophen 500 mg oral tablet 2 tablet = 1,000 mg, By Mouth, Every 8 hours, for pain., # 100 tablet, 1 Refills, Maintenance, 05/06/20 17:16:00 EST, [facility]/pharmacy #[id number], 162.56, cm, 05/06/20 16:24:00 EST, Height, 76.6, kg, :30:00 EST, Dry Weight Start Date: 05/06/20 Status: Ordered Albuterol (Eqv-ProAir HFA) 90 mcg/inh inhalation aerosol 2 puffs, Inhalation, Every 6 hours, PRN NEEDED FOR WHEEZING/SHORTNESS OF BREATH, # 8.5 each, 5 Refills, Maintenance, 04/26/21 9:56:00 EDT, [facility]/pharmacy #[id number], 25, 2 puffs Inhalation Every 6 hours,PRN: NEEDED FOR WHEEZING/SHORTNESS OF BREATH, 162.... Start Date: 04/26/21 Status: Ordered Azithromycin 5 Day Dose Pack 250 mg oral tablet See Instructions, 1 pack/packet By Mouth as directed on package labeling, # 6 tablet, 0 Refills, Soft Stop, 04/28/21 9:45:00 EDT, Tablet, [facility]/pharmacy #[id number], Partial fill upon patient request if the prescription is for a schedule II opioid drug., 162... Start Date: 04/28/21 Status: Ordered cetirizine 10 mg oral tablet 1 tablet, By Mouth, Daily, PRN NEEDED FOR ALLERGY SYMPTOMS, # 30 tablet, 5 Refills, Maintenance,02/15/21 8:32:00 EDT, [facility] [address], 162.56, cm, 11/27/20 9:16:00 EDT, Height Start [...] # 16 mL, 5 Refills, [facility] [address], 30, USE 1 SPRAY INTO EACH NOSTRIL EVERY MORNING FOR 30 DAYS, 162.56, cm, 04/02/21 13:19:00 EDT, Height Start Date: 04/19/21 Status: Ordered levothyroxine 0.112 mg oral tablet See Instructions, TAKE 1 TABLET BY MOUTH EVERY DAY, # 30 tablet, 2 Refills, 06/14/21 15:32:00 EST, [facility]/pharmacy #[id number], duplicate rx. original sent 03/03/21. [...] tablet, 0 Refills, Maintenance, 03/26/21 18:12:00 EDT, [facility]/pharmacy #[id number], Partial fill upon patient request [...] 1 Refills, Maintenance, 02/24/21 16:06:00 EDT, [id number], Partial fill upon patient request if the [...] 07/05/06(Confirmed) Active 1F/U by Dr. Gibbs at [facility]. ORal Steroid Trial given. Social History Social History Type Response Smoking Status Former smoker entered on: 11/13/16 Sex Female
--- OUTSIDE RECORDS SUMMARY | 2022-10-03 14:50 | XMS_ITS | Continuity of Care Document ---
Author Name Unknown Organization [facility] Address [address] [place] [address]- Care Team Providers Care Title I Math Tutor Name Role Phone Srikanth Narayan MD Primary Care Physician [phone] Encounter [facility] Date(s): 04/27/21 - 05/27/21 [facility] [address] [place] [address]- Allergies, Adverse Reactions, Alerts Substance Reaction Severity Status Keflex Rash Active Lamictal Skin rash. Active Gluten free Active metroNIDAZOLE topical angioedema Active meloxicam Facial swelling, tongue numbness, asthma Active Immunizations Given and Recorded Vaccine Date Status Refusal Reason SARS-CoV-2 (COVID-19) mRNA BNT-162b2 vac 05/11/21 Given [...] 06/30/08 Gi myesha 1Result Comment: [03/27/2017] [facility] 09200-750-30 2Admin Note: [facility] 3Admin Note: VIS GIVEN-DATED 01/02/12 4Admin Note: VIS GIVEN VIS DATE 01/25/11 5Admin Note: vis given vis date 02/09/2010 6Admin Note: VIS GIVEN 7Admin Note: VIS GIVEN 8Admin Note: vis given Medications acetaminophen 500 mg oral tablet 2 tablet = 1,000 mg, By Mouth, Every 8 hours, for pain., # 100 tablet, 1 Refills, Maintenance, 05/06/20 17:16:00 EST, [facility]/pharmacy #[id number], 162.56, cm, 05/06/20 16:24:00 EST, Height, 76.6, kg, 192:30:00 EST, Dry Weight Start Date: 05/06/20 Status: Ordered Albuterol (Eqv-ProAir HFA) 90 mcg/inh inhalation aerosol 2 puffs, Inhalation, Every 6 hours, PRN NEEDED FOR WHEEZING/SHORTNESS OF BREATH, # 8.5 each, 5 Refills, Maintenance, 04/26/21 9:56:00 EDT, [facility]/pharmacy #[id number], 25, 2 puffs Inhalation Every 6 hours,PRN: NEEDED FOR WHEEZING/SHORTNESS OF BREATH, 162.... Start Date: 04/26/21 Status: Ordered Azithromycin 5 Day Dose Pack 250 mg oral tablet See Instructions, 1 pack/packet By Mouth as directed on package labeling, # 6 tablet, 0 Refills, Soft Stop, 04/28/21 9:45:00 EDT, Tablet, [id number], Partial fill upon patient request if the prescription is for a schedule II opioid drug., 162... Start Date: 04/28/21 Status: Ordered cetirizine 10 mg oral tablet 1 tablet, By Mouth, Daily, PRN NEEDED FOR ALLERGY SYMPTOMS, # 30 tablet, 5 Refills, Maintenance,02/15/21 8:32:00 EDT, [facility], 162.56, cm, 11/27/20 9:16:00 EDT, Height Start Date: 02/15/21 Stop Date: 03/17/21 Status: Ordered EpiPen 2-Thomas 0.3 mg injectable kit = 0.3 mg, Intramuscular, Once, # 1 pack/packet, 0 Refills, Soft Stop, 04/22/19 17:32:16 EDT Start Date: 04/22/19 Status: Ordered fluticasone 50 mcg/inh nasal spray See Instructions, USE 1 SPRAY INTO EACH NOSTRIL EVERY MORNING FOR 30 DAYS, # 16 mL, 5 Refills, [facility], 30, USE 1 SPRAY INTO EACH NOSTRIL EVERY MORNING FOR 30 DAYS, 162.56, cm, 04/02/21 13:19:00 EDT, Height Start Date: 04/19/21 Status: Ordered levothyroxine 0.112 mg oral tablet See Instructions, TAKE 1 TABLET BY MOUTH EVERY DAY, # 30 tablet, 5 Refills, [facility], 162.56, cm, 03/03/21 15:20:00 EDT, Height Start [...] 07/05/06(Confirmed) Active 1F/U by Dr. Gibbs at [facility]. ORal Steroid Trial given. Social History Social History Type Response Smoking Status Former smoker entered on: 11/13/16 Sex Female
--- OUTSIDE RECORDS SUMMARY | 2022-10-03 14:50 | XMS_ITS | Continuity of Care Document ---
Author Name Unknown Organization [facility] Address [address] [place] [address]- Care Team Providers Care Developmental Training Counselor Name Role Phone Sylvain LOVE, Srikanth Holguin Primary Care Physician Encounter [facility] Date(s): 10/29/21 - 11/05/21 [facility] [address], [place] [address] Attending Physician: Cesar Mauricio DO Referring Physician: Srikanth Narayan MD Allergies, Adverse Reactions, [...] 06/30/08 Gi myesha 1Result Comment: [03/27/2017] [facility] [id number] 2Admin Note: At [facility] 3Admin Note: VIS GIVEN-DATED 01/02/12 4Admin [...] 10/12/21 10:38:00 EDT, Route to Pharmacy Electronically, [facility]/pharmacy #[id number], Partial fill upon patient request if the prescription is for a sc... Start Date: 10/12/21 Status: Ordered EpiPen 2-Thomas 0.3 mg injectable kit = 0.3 mg, Intramuscular, Once, # 1 pack/packet, 0 Refills, Soft Stop, 04/22/19 17:32:16 EDT Start Date: 04/22/19 Status: Ordered fluticasone 50 mcg/inh nasal spray See Instructions, USE 1 SPRAY INTO EACH NOSTRIL EVERY MORNING FOR 30 DAYS, # 16 mL, 5 Refills, [facility], 30, USE 1 SPRAY INTO EACH NOSTRIL EVERY MORNING FOR 30 DAYS, 162.56, cm, 04/02/21 13:19:00 EDT, Height Start Date: 04/19/21 Status: Ordered levothyroxine 125 mcg (0.125 mg) oral tablet 1 tablet = 125 mcg, By Mouth, Daily, # 90 tablet, 3 Refills, Maintenance, 10/20/21 17:29:00 EDT, Tablet, [facility]/pharmacy #[id number], Partial fill upon patient request if the prescription is for a schedule IIopioid drug., 167, cm, 10/12/21 10:13:00 EDT, Heigh... Start Date: 10/20/21 Stop Date: 10/15/22 Status: Ordered naproxen 250 mg oral tablet 250 mg, 1, tablet, By Mouth, 2 times a day, PRN, for 14 days, with food, # 28 tablet, Refills 1, Tot. Refills 1, Acute 11/09/21 10:38:00 EDT, for pain, 10/12/21 10:38:00 EDT, Route to Pharmacy Electronically, [facility]/pharmacy #[id number], Partial fill upon hunter... Start Date: 10/12/21 Stop Date: 11/09/21 Status: Ordered ProAir HFA 90 mcg/inh inhalation aerosol with adapter 2, puffs, Inhalation, Every 6 hours, PRN, # 8.5 each, Refills 5, Tot. Refills 5, Maintenance, 10/11/21 10:23:00 EDT, Route to Pharmacy Electronically, [id number], [facility]/pharmacy #[id number], 167, cm, 09/15/21 15:38:00 EDT, [...] tablet, 0 Refills, Maintenance, 03/26/21 18:12:00 EDT, [facility]/pharmacy #[id number], Partial fill upon patient request [...] Gm, 1 Refills, Maintenance, 02/24/21 16:06:00 EDT, [facility]/pharmacy #[id number], Partial fill upon patient request [...] 07/05/06(Confirmed) Active 1F/U by Dr. Gibbs at [facility]. ORal Steroid Trial given. Vital Signs Most recent to oldest [Reference Range]: 1 Height 167 cm (10/29/21 2:52 PM) Oxygen Saturation [94-100 %] 100 % (10/29/21 2:52 PM) Pulse Rate [55-90 bpm] 80 bpm (10/29/21 2:52 PM) Blood Pressure [90-138/55-84 mm Hg] 142/ 82mm Hg *H* (10/29/21 2:52 PM) Temperature [96.8-100.4 DegF] 97.8 DegF (10/29/21 2:52 PM) Mode of Delivery (Oxygen) Room air (10/29/21 2:52 PM) Blood pressure sites Arm, right (10/29/21 2:52 PM) Temperature Route Temporal (10/29/21 2:52 PM) Social History Social History Type Response Smoking Status Former smoker entered on: 11/13/16 Sex Female
--- OUTSIDE RECORDS SUMMARY | 2022-10-03 14:50 | XMS_ITS | Continuity of Care Document ---
Author Name Unknown Organization [facility] Address [address] [place] [address]- Care Team Providers Care Disability Representative Name Role Phone Desmond Hogan Primary Care Physician [facility]counter [facility] Date(s): 08/23/22 - 09/22/22 [facility] [address] [place] [id number] Allergies, Adverse Reactions, Alerts Substance Reaction [...] 8 06/30/08 Gi myesha 1Result Comment: [03/27/2017] [facility] [id number] 2Admin Note: At [facility] 3Admin Note: VIS GIVEN-DATED [...] 10/12/21 10:38:00 EDT, [id number] Partial fill upon patient request if the prescription is for a sc... Start Date: 10/12/21 Status: Ordered baclofen 10 mg oral tablet 10 mg, 1, tablet, By Mouth, 2 times a day, PRN, # 30 tablet, Refills 0, Tot. Refills 0, Maintenance, muscle spasm, 04/18/22 10:33:00 EDT, [id number] Partialfill upon patient request if the prescription is fo... Start Date: 04/18/22 Status: Ordered Diflucan 150 mg oral tablet 1 tablet = 150 mg, By Mouth, Once, # 1 tablet, 0 Refills, Soft Stop, 09/05/22 10:23:00 EST, Tablet,[facility] #[id number], Partial fill upon [...] 0 Refills, Maintenance, 08/19/22 17:00:00 EST, Lotion, [facility]/pharmacy#0488, Partial fill upon patient request if the pre... Start Date: 08/19/22 Status: Ordered Flovent HFA 110 mcg/inh inhalation aerosol 2 puffs, Inhalation, 2 times a day, rinse mouth and throat after use, # 1 each, 5 Refills, Maintenance, 05/24/22 10:53:00 EST, [facility]/pharmacy #[id number], Partial fill upon [...] 0 Refills, Soft Stop, 12/06/21 8:08:00 EDT, [facility]/pharmacy #[id number], Partial fill upon patient request if the prescription is for a schedule II opioiddrug., 167, cm, 11/26/21 13:55:00 EDT, Height, 87.9... Start Date: 12/06/21 Status: Ordered FLUoxetine (Eqv-Prozac) 20 mg oral tablet 1 tablet = 20 mg, By Mouth, Daily, # 30 tablet, 1 Refills, Maintenance, 03/16/22 15:00:00 EDT, Tablet, [facility]/pharmacy #[id number], Partial fill upon patient request if the prescription is for a schedule II opioid drug., 167, cm, 03/16/22 13:56:00 EDT, Height,... Start Date: 03/16/22 Stop Date: 05/15/22 Status: Ordered fluticasone 50 mcg/inh nasal spray See Instructions, USE 1 SPRAY INTO EACH NOSTRIL EVERY MORNING FOR 30 DAYS, # 16 mL, 2 Refills, [facility], 30, USE 1 SPRAY INTO EACH NOSTRIL [...] 0 Refills, Maintenance, 08/24/22 14:46:00 EST, Cream, [facility]/pharmacy #[id number], Partial fill upon [...] 5 Refills, Maintenance, 05/17/22 16:56:00 EST, Tablet, [facility]/pharmacy #[id number], Partial fill upon patient request if the prescription is for a schedule IIopioid drug., 167, cm, 04/18/22 10:00:00 EDT, Heigh... Start Date: 05/17/22 Stop Date: 11/13/22 Status: Ordered ProAir HFA 90 mcg/inh inhalation aerosol with adapter 2, puffs, Inhalation, Every 6 hours, PRN, # 8.5 each, Refills 5, Tot. Refills 5, Maintenance, 10/11/21 10:23:00 EDT, Route to Pharmacy Electronically, [id number], [facility]/pharmacy #[id number], 167, cm, 09/15/21 [...] Gm, 1 Refills, Maintenance, 02/24/21 16:06:00 EDT, [facility]/pharmacy #[id number], Partial fill upon [...] Confirmed Active 1F/U by Dr. Gibbs at [facility]. ORal Steroid Trial given. Social History Social History Type Response Smoking Status Never smoker entered on: 08/02/13 Sex Female Patient Care team information Care Team Personnel Name: Desmond Hogan Position: [facility] PCO Associate Professional Member Role: PCP Address: Address: [address] [place] [id number] Name: Jamel Flor RN Position: [facility] RN Member Role: Primary Care Nurse Name: Candi Eisenberg RN Position: [facility] RN Member Role: Primary Care Nurse Name: Gilmar Mckeon RN Position: [facility] SN RN Member Role: Primary Care Nurse Name: Catalina Reece RN Position: [facility] OB RN Member Role: Primary Care Nurse Name: Elizabeth Rowland RN Position: [facility] Onco RN Member Role: Primary Care Nurse Care Team Related Persons Name: ALEJO PIERRE Address: [place] [address]
--- OUTSIDE RECORDS SUMMARY | 2022-10-03 14:50 | XMS_ITS | Continuity of Care Document ---
Author Name Unknown Organization [facility] Address [address] [place] [address]- Care Team Providers Care Metal Hanging Supervisor Name Role Phone Srikanth Narayan MD Primary Care Physician [facility] Date(s): 10/22/19 - 11/21/19 [facility] [address] [place] [address]- [facility] Attending Physician: Admtr, Ar8 Allergies, [...] 8 06/30/08 Gi myesha 1Result Comment: [03/27/2017] [facility] [id number] 2[facility] 3Admin Note: VIS [...] 10/22/19 14:56:00 EDT, Route to Pharmacy Electronically, [facility]/pharmacy #[id number], 162.56, cm, 08/02/19 10:02:00 EST, Height, 76.6, kg,... Start Date: 10/22/19 Status: Ordered cetirizine 10 mg oral tablet 1 tablet = 10 mg, By Mouth, Daily, PRN for allergy symptoms, # 30 tablet, 2 Refills, Maintenance, 11/06/19 9:21:00 EDT, Tablet, [facility]/pharmacy #[id number], 162.56, cm, 08/02/19 10:02:00 EST, [...] tablet, 5 Refills, Maintenance, 10/02/19 15:08:00 EDT, [facility]/pharmacy #0488, 162.56, cm, 08/02/19 10:02:00 EST, Height, 76.6, kg, 08/18/18 2:30:00 EST, Dry Weight Start Date: 10/02/19 Stop Date: 03/30/20 Status: Ordered ProAir HFA 90 mcg/inh inhalation aerosol with adapter 2, puffs, Inhalation, Every 6 hours, PRN, # 8.5 Gm, Refills 11, Tot. Refills 11, Maintenance, 10/22/19 14:57:00 EDT, Aerosol, Route to Pharmacy Electronically, [id number], [id number], 162.56, cm, 08/02/19 10:02:00 EST... Start [...] 07/05/06(Confirmed) Active 1F/U by Dr. Gibbs at [facility]. ORal Steroid Trial given. Social History Social History Type Response Smoking Status Former smoker entered on: 11/13/16 Sex Female
--- OUTSIDE RECORDS SUMMARY | 2022-10-03 14:50 | XMS_ITS | Continuity of Care Document ---
Author Name Unknown Organization [facility] Address [address] [place] [address]- Care Team Providers Care Online Content Developer Name Role Phone Sylvain LOVE, Srikanth Holguin Primary Care Physician Encounter [facility] Date(s): 03/05/21 - 04/09/[address] [address] Attending Physician: Not on Staff, Attending MD Referring Physician: Rajesh LOVE, Kristina Allergies, Adverse Reactions, Alerts Substance Reaction Severity [...] 8 06/30/08 Gi myesha 1Result Comment: [03/27/2017] [facility] [id number] 2Admin Note: At [facility] 3Admin Note: VIS GIVEN-DATED [...] 10/22/19 14:56:00 EDT, Route to Pharmacy Electronically, [facility]/pharmacy #[id number], 162.56, cm, 08/02/19 10:02:00 EST, Height, 76.6, kg,... Start Date: 10/22/19 Status: Ordered acetaminophen 500 mg oral tablet 2 tablet = 1,000 mg, By Mouth, Every 8 hours, for pain., # 100 tablet, 1 Refills, Maintenance, 05/06/20 17:16:00 EST, [facility]/pharmacy #[id number], 162.56, cm, 05/06/20 16:24:00 EST, Height, 76.6, kg, 192:30:00 EST, Dry Weight Start Date: 05/06/20 Status: Ordered cetirizine 10 mg oral tablet 1 tablet, By Mouth, Daily, PRN NEEDED FOR ALLERGY SYMPTOMS, # 30 tablet, 5 Refills, Maintenance,02/15/21 8:32:00 EDT, [facility] STORE 26[facility], 162.56, cm, 11/27/20 9:16:00 EDT, Height Start Date: 02/15/21 Stop Date: 03/17/21 Status: Ordered EpiPen 2-Thomas 0.3 mg injectable kit = 0.3 mg, Intramuscular, Once, # 1 pack/packet, 0 Refills, Soft Stop, 04/22/19 17:32:16 EDT Start Date: 04/22/19 Status: Ordered Flonase 50 mcg/inh nasal spray 1 sprays, Nares, Both, Daily in AM, # 16 Gm, 2 Refills, Maintenance, 11/02/20 14:46:00 EDT, [place], [facility]/pharmacy #[id number], 1 sprays Nares, Both Daily in AM,x30 days, 162.56, cm, 08/20/20 13:28:00 EST, Height Start Date: 11/02/20 Stop Date: 01/31/21 Status: Ordered levothyroxine 0.112 mg oral tablet See Instructions, TAKE 1 TABLET BY MOUTH EVERY DAY, # 30 tablet, 5 Refills, [facility] [address]20, 162.56, cm, 03/03/21 15:20:00 EDT, Height Start Date: 03/03/21 Status: Ordered ProAir HFA 90 mcg/inh inhalation aerosol with adapter 2, puffs, Inhalation, Every 6 hours, PRN, # 8.5 Gm, Refills 11, Tot. Refills 11, Maintenance, 10/22/19 14:57:00 EDT, Aerosol, Route to Pharmacy Electronically, [id number], [facility]/pharmacy #0488, 162.56, cm, 08/02/19 10:02:00 EST... [...] tablet, 0 Refills, Maintenance, 03/26/21 18:12:00 EDT, [facility]/pharmacy #[id number], Partial fill upon [...] Gm, 1 Refills, Maintenance, 02/24/21 16:06:00 EDT, [facility]/pharmacy #[id number], Partial fill upon patient request if the [...] 07/05/06(Confirmed) Active 1F/U by Dr. Gibbs at [facility]. ORal Steroid Trial given. Social History Social History Type Response Smoking Status Former smoker entered on: 11/13/16 Sex Female
--- OUTSIDE RECORDS SUMMARY | 2022-10-03 14:50 | XMS_ITS | Continuity of Care Document ---
Author Name Unknown Organization [facility] Address [address] [place] [address]- Care Team Providers Care Education Department Chair Name Role Phone Sylvain LOVE, Srikanth Holguin Primary Care Physician [facility] Date[facility]s): 02/17/21 - 03/19/21 [facility] [address] [place] [address]- Allergies, Adverse Reactions, Alerts Substance Reaction Severity [...] 8 06/30/08 Gi myesha 1Result Comment: [03/27/2017] [facility] [id number] 2[facility]: [facility] 3Admin Note: VIS [...] 10/22/19 14:56:00 EDT, [id number] 162.56, cm, 08/02/19 10:02:00 EST, Height, 76.6, kg,... Start Date: 10/22/19 Status: Ordered acetaminophen 500 mg oral tablet 2 tablet = 1,000 mg, By Mouth, Every 8 hours, for pain., # 100 tablet, 1 Refills, Maintenance, 05/06/20 17:16:00 EST, [facility]/pharmacy #0488, 162.56, cm, 05/06/20 16:24:00 EST, Height, 76.6, kg, :30:00 EST, Dry Weight Start Date: 05/06/20 Status: Ordered cetirizine 10 mg oral tablet 1 tablet, By Mouth, Daily, PRN NEEDED FOR ALLERGY SYMPTOMS, # 30 tablet, 5 Refills, Maintenance,02/15/21 8:32:00 EDT, [facility] STORE [address]359, 162.56, cm, 11/27/20 9:16:00 EDT, Height Start Date: 02/15/21 Stop Date: 03/17/21 Status: Ordered EpiPen 2-Thomas 0.3 mg injectable kit = 0.3 mg, Intramuscular, Once, # 1 pack/packet, 0 Refills, Soft Stop, 04/22/19 17:32:16 EDT Start Date: 04/22/19 Status: Ordered Flonase 50 mcg/inh nasal spray 1 sprays, Nares, Both, Daily in AM, # 16 Gm, 2 Refills, Maintenance, 11/02/20 14:46:00 EDT, [place], [facility]/pharmacy #0488, 1 sprays Nares, Both Daily in AM,x30 days, 162.56, cm, 08/20/20 13:28:00 EST, Height Start Date: 11/02/20 Stop Date: 01/31/21 Status: Ordered levothyroxine 0.112 mg oral tablet See Instructions, TAKE 1 TABLET BY MOUTH EVERY DAY, # 30 tablet, 5 Refills, [facility] STORE [address]69, 162.56, cm, 03/03/21 15:20:00 EDT, Height Start Date: 03/03/21 Status: Ordered ProAir HFA 90 mcg/inh inhalation aerosol with adapter 2, puffs, Inhalation, Every 6 hours, PRN, # 8.5 Gm, Refills 11, Tot. Refills 11, Maintenance, 10/22/19 14:57:00 EDT, Aerosol, Route to Pharmacy Electronically, [id number], [facility]/pharmacy #0488, 162.56, cm, 08/02/19 10:02:00 EST... Start Date: 10/22/19 Status: Ordered Vitamin D3 1000 intl units oral capsule 1 capsule = 1,000 International_Units, By Mouth, Daily, # 90 capsule, 1 Refills, Maintenance, 12/16/20 10:54:00 EDT, [facility]/pharmacy #0488, 162.56, cm, 11/27/20 9:16:00 EDT, Height Start Date: 12/16/20 Stop Date: 06/14/21 Status: Ordered Voltaren 1% topical gel = 2 Gm, Topically, 4 times a day, PRN Pain , Moderate, resent, # 100 Gm, 1 Refills, Maintenance, 02/24/21 16:06:00 EDT, [facility]/pharmacy #[id number], Partial fill upon patient request if [...] 07/05/06(Confirmed) Active 1F/U by Dr. Gibbs at [facility]. ORal Steroid Trial given. Social History Social History Type Response Smoking Status Former smoker entered on: 11/13/16 Sex Female
--- OUTSIDE RECORDS SUMMARY | 2022-10-03 14:50 | XMS_ITS | Continuity of Care Document ---
Author Name Unknown Organization [facility] Address [address] [place] [address]- Care Team Providers Care Policy Cancellation Clerk Name Role Phone Srikanth Narayan MD Primary Care Physician [facility] Date[facility]s): 11/[facility]20 - 12/02/20 [facility] [address] [place] [address]- Allergies, Adverse Reactions, Alerts Substance Reaction Severity [...] 06/30/08 Gi myesha 1Result Comment: [03/27/2017] [facility] [id number] 2[facility] 3Admin Note: VIS [...] 14:56:00 EDT, Route to Pharmacy Electronically, [facility]/pharmacy #0488, 162.56, cm, 08/02/19 10:02:00 EST, Height, 76.6, kg,... Start Date: 10/22/19 Status: Ordered acetaminophen 500 mg oral tablet 2 tablet = 1,000 mg, By Mouth, Every 8 hours, for pain., # 100 tablet, 1 Refills, Maintenance, 05/06/20 17:16:00 EST, [facility]/pharmacy #0488, 162.56, cm, 05/06/20 16:24:00 EST, Height, 76.6, kg, 192:30:00 EST, Dry Weight Start Date: 05/06/20 Status: Ordered baclofen 10 mg oral tablet 10 mg, 1, tablet, By Mouth, 3 times a day, for pain., # 15 tablet, Refills 0, Tot. Refills 0, Maintenance, 05/06/20 17:15:00 EST, [facility] 162.56, cm, 05/06/20 16:24:00 EST, Height, 76.6, kg, 08/18/18 2:30:... Start Date: 05/06/20 Stop Date: 05/11/20 Status: Ordered celecoxib 200 mg oral capsule 1 capsule = 200 mg, By Mouth, Daily, BAUTISTA 2 trials., # 14 capsule, 1 Refills, Maintenance, 01/28/20 9:52:00 EDT, Capsule, [facility]/pharmacy #0488, 162.56, cm, 12/31/19 8:29:00 EDT, Height, 76.6, kg, 08/18/18 2:30:00 EST, Dry Weight Start Date: 01/28/20 Stop Date: 02/25/20 Status: Ordered cetirizine 10 mg oral tablet 1 tablet = 10 mg, By Mouth, Daily, PRN for allergy symptoms, # 30 tablet, 2 Refills, Maintenance, 11/02/20 14:46:00 EDT, Tablet, [facility]/pharmacy #0488, 162.56, cm, 08/20/20 13:28:00 EST, Height Start Date: 11/02/20 Stop Date: 01/31/21 Status: Ordered EpiPen 2-Thomas 0.3 mg injectable kit = 0.3 mg, Intramuscular, Once, # 1 pack/packet, 0 Refills, Soft Stop, 04/22/19 17:32:16 EDT Start Date: 04/22/19 Status: Ordered Flonase 50 mcg/inh nasal spray 1 sprays, Nares, Both, Daily in AM, # 16 Gm, 2 Refills, Maintenance, 11/02/20 14:46:00 EDT, [place], [facility]/pharmacy #0488, 1 sprays Nares, Both Daily in AM,x30 days, 162.56, cm, 08/20/20 13:28:00 EST, Height Start Date: 11/02/20 Stop Date: 01/31/21 Status: Ordered levothyroxine 0.112 mg oral tablet 1 tablet = 112 mcg, By Mouth, Daily, dose lowered to 112mcg 12/18/19, # 30 tablet, 5 Refills, Maintenance, 05/29/20 17:50:00 EST, [facility]/pharmacy #0488, 162.56, cm, 05/06/20 16:24:00 EST, Height, 76.6, kg, 08/18/18 2:30:00 EST, Dry Weight Start Date: 05/29/20 Status: Ordered ProAir HFA 90 mcg/inh inhalation aerosol with adapter 2, puffs, Inhalation, Every 6 hours, PRN, # 8.5 Gm, Refills 11, Tot. Refills 11, Maintenance, 10/22/19 14:57:00 EDT, Aerosol, Route to Pharmacy Electronically, [id number], [facility]/pharmacy #0488, 162.56, cm, 08/02/19 10:02:00 EST... Start [...] 07/05/06(Confirmed) Active 1F/U by Dr. Gibbs at [facility]. ORal Steroid Trial given. Social History Social History Type Response Smoking Status Former smoker entered on: 11/13/16 Sex Female
--- OUTSIDE RECORDS SUMMARY | 2022-10-03 14:50 | XMS_ITS | Continuity of Care Document ---
Author Name Unknown Organization [facility] Address [address] [place] [address]- Care Team Providers Care Ladle Handler Name Role Phone Srikanth Narayan MD Primary Care Physician En[place] [facility] Date(s): 01/22/20 - 03/20/20 [facility] [address] [place] [address]- [facility] Discharge Disposition: A-D/C Home Attending Physician: Srikanth Narayan MD Admitting Physician: Srikanth Narayan MD Referring Physician: Derek Porras Allergies, Adverse Reactions, Alerts Substance Reaction Severity [...] Comment: [03/27/2017] [facility] [id number] 2Admin Note: At [facility] 3Admin Note: VIS GIVEN-DATED 01/02/12 4Admin Note: [...] 2 Refills, Maintenance, 11/06/19 9:21:00 EDT, Tablet, [facility] tablet, 5 Refills, Maintenance, 12/18/19 18:47:00 EDT, [facility]/pharmacy #[id number], 162.56, cm, 08/02/19 10:02:00 EST, Height, 76.6, kg, 08/18/18 2:30:00 EST, Dry Weight Start Date: 12/18/19 Status: Ordered ProAir HFA 90 mcg/inh inhalation aerosol with adapter 2, puffs, Inhalation, Every 6 hours, PRN, # 8.5 Gm, Refills 11, Tot. Refills 11, Maintenance, 10/22/19 14:57:00 EDT, Aerosol, Route to Pharmacy Electronically, [id number], [facility]/pharmacy #0488, 162.56, cm, 08/02/19 10:02:00 EST... Start Date: 10/22/19 Status: Ordered Vitamin D3 1000 intl units oral capsule 1 capsule = 1,000 International_Units, By Mouth, Daily, # 90 capsule, 3 Refills, Maintenance, 12/18/19 18:48:00 EDT, [facility]/pharmacy #[id number], [...] 07/05/06(Confirmed) Active 1F/U by Dr. Gibbs at [facility]. ORal Steroid Trial given. Social History Social History Type Response Smoking Status Former smoker entered on: 11/13/16 Sex Female
--- OUTSIDE RECORDS SUMMARY | 2022-10-03 14:51 | XMS_ITS | Continuity of Care Document ---
Author Name Unknown Organization [facility] Address [address] [place] [address]- Care Team Providers Care Carton Inspector Name Role Phone Srikanth Narayan MD Primary Care Physician Encounter [facility] [place] Date(s): 07/04/19 - 07/14/[address] [address]- [facility] Attending Physician: Matt Edge Admitting Physician: Admtr, Matt Referring Physician: Admtr, Ar8 Allergies, Adverse Reactions, [...] 06/30/08 Gi myesha 1Result Comment: [03/27/2017] [facility] [id number] 2Admin Note: At [facility] 3Admin Note: VIS GIVEN-DATED 01/02/12 4Admin [...] 10:58:31 EDT, Aerosol, Route to Pharmacy Electronically, [id number], [facility]/pharmacy #[id number] Start Date: 01/17/18 [...] 07/05/06(Confirmed) Active 1F/U by Dr. Gibbs at [facility]. ORal Steroid Trial given. Social History Social History Type Response Smoking Status Former smoker entered on: 11/13/16 Sex Female
--- OUTSIDE RECORDS SUMMARY | 2022-10-03 14:51 | XMS_ITS | Continuity of Care Document ---
Author Name Unknown Organization [facility] Address [address] [place] [address]- Care Team Providers Care Astronaut Mission Specialist Name Role Phone Desmond Hogan Primary Care Physician [facility] Date[facility]s): 02/28/22 - 03/30/22 [facility] [address] [place] [id number] Allergies, Adverse Reactions, Alerts Substance Reaction Severity Status Keflex Rash Active Lamictal Skin rash. Active metroNIDAZOLE topical angioedema Active Gluten free Active meloxicam Facial swelling, tongue numbness, asthma [...] influenza virus vaccine, inactivated 6 05/23/07 Gi myehsa influenza virus vaccine, inactivated 7 05/23/06 Gi myesha tetanus/diphtheria/pertussis, acel(Tdap) 12/31/13 Given pneumococcal 23-valent vaccine 12/13/10 Given Tet/Diphth/Acel, Pertussis (oldterm) 8 06/30/08 Gi myesha 1Result Comment: [03/27/2017] [facility] [id number] 2Admin Note: At [facility] 3Admin Note: VIS GIVEN-DATED 01/02/12 4Admin [...] 10/12/21 10:38:00 EDT, [id number] Partial fill upon patient request if [...] Refills, Soft Stop, 11/26/21 14:03:00 EDT, Tablet, [id number], Partial fill upon patient request if the prescription is for a schedule II opioid... Start Date: 11/26/21 Status: Ordered fluconazole 150 mg oral tablet 1 tablet = 150 mg, By Mouth, Once, Acute, # 1 tablet, 0 Refills, Soft Stop, 12/06/21 8:08:00 EDT, [id number], Partial fill upon patient request if the prescription is for a schedule II opioiddrug., 167, cm, 11/26/21 13:55:00 EDT, Height, 87.9... Start Date: 12/06/21 Status: Ordered FLUoxetine (Eqv-Prozac) 20 mg oral tablet 1 tablet = 20 mg, By Mouth, Daily, # 30 tablet, 1 Refills, Maintenance, 03/16/22 15:00:00 EDT, Tablet, [facility]/pharmacy #[id number], Partial fill upon patient request if the prescription is for a schedule II opioid drug., 167, cm, 03/16/22 13:56:00 EDT, Height,... Start Date: 03/16/22 Stop Date: 05/15/22 Status: Ordered fluticasone 50 mcg/inh nasal spray See Instructions, USE 1 SPRAY INTO EACH NOSTRIL EVERY MORNING FOR 30 DAYS, # 16 mL, 2 Refills, [facility] STORE [facility], 30, USE 1 SPRAY INTO EACH NOSTRIL EVERY MORNING FOR 30 DAYS, 167, cm, 11/04/21 10:58:00EDT, Height, 87.9, kg, 08/23/21 21:04:00 EST, Dry W... Start Date: 11/17/21 Status: Ordered levothyroxine 0.137 mg oral tablet 1 tablet = 137 mcg, By Mouth, Daily, # 30 tablet, 5 Refills, Maintenance, 03/01/22 17:54:00 EDT, [facility]/pharmacy #[id number], dose increase to 137mcg 03/01/22, 167, cm, 11/25/21 16:14:00 EDT, Height, 87.9, kg,08/23/21 21:04:00 EST, Dry Weight Start Date: 03/01/22 Status: Ordered ProAir HFA 90 mcg/inh inhalation aerosol with adapter 2, puffs, Inhalation, Every 6 hours, PRN, # 8.5 each, Refills 5, Tot. Refills 5, Maintenance, 10/11/21 10:23:00 EDT, Route to Pharmacy Electronically, [id number], [facility]/pharmacy #[id number], 167, cm, 09/15/21 15:38:00 EDT, [...] tablet, 0 Refills, Maintenance, 03/26/21 18:12:00 EDT, [facility]/pharmacy #[id number], Partial fill upon patient request [...] Confirmed Active 1F/U by Dr. Gibbs at [facility]. ORal Steroid Trial given. Social History Social History Type Response Smoking Status Former smoker entered on: 11/13/16 Sex Female Patient Care team information Personnel Name: Desmond Hogan Address: Address: [address] [place] [address]
--- OUTSIDE RECORDS SUMMARY | 2022-10-03 14:51 | XMS_ITS | Continuity of Care Document ---
Author Name Unknown Organization [facility] Address [address] [place] [address]- Care Team Providers Care Retail Account Manager Name Role Phone Srikanth Narayan MD Primary Care Physician [facility]counter [facility] Date(s): 08/02/19 - 10/02/19 [facility] [address] [place] [address]- [facility] Attending Physician: Not on Staff, Attending MD [...] 1Result Comment: [03/27/2017] [facility] [id number] 2Admin Note: At [facility] 3Admin Note: VIS GIVEN-DATED 01/02/12 4Admin Note: VIS GIVEN VIS DATE 01/25/11 5Admin Note: vis given vis date 02/09/2010 6Admin Note: VIS GIVEN 7Admin Note: VIS GIVEN 8Admin Note: vis given Medications cetirizine 10 mg oral tablet 1 tablet = 10 mg, By Mouth, Daily, PRN for allergy symptoms, # 30 tablet, 2 Refills, Maintenance, 08/05/19 9:58:00 EST, Tablet, [facility]/pharmacy #0488, 162.56, cm, 08/02/19 10:02:00 EST, [...] tablet, 5 Refills, Maintenance, 10/02/19 15:08:00 EDT, [facility]/pharmacy #0488, 162.56, cm, 08/02/19 10:02:00 EST, Height, 76.6, kg, 08/18/18 2:30:00 EST, Dry Weight Start Date: 10/02/19 Stop Date: 03/30/20 Status: Ordered meloxicam 7.5 mg oral tablet 1 tablet = 7.5 mg, By Mouth, Daily, PRN Pain , Moderate, # 14 tablet, 0 Refills, Maintenance, 08/02/19 10:47:00 EST, Tablet, [facility]/pharmacy #0488, 162.56, cm, 08/02/19 10:02:00 EST, [...] 10:58:31 EDT, Aerosol, Route to Pharmacy Electronically, [id number], [id number] Start Date: 01/17/18 Status: Ordered Problem [...] 07/05/06(Confirmed) Active 1F/U by Dr. Gibbs at [facility]. ORal Steroid Trial given. Social History Social History Type Response Smoking Status Former smoker entered on: 11/13/16 Sex Female
--- OUTSIDE RECORDS SUMMARY | 2022-10-03 14:51 | XMS_ITS | Continuity of Care Document ---
Author Name Unknown Organization [facility] Address [address] [place] [address]- Care Team Providers Care Product Design Manager Name Role Phone Srikanth Narayan MD Primary Care Physician [phone] Encounter [facility] Date(s): 04/06/21 - 05/06/21 [facility] [address] [place] [address]- Allergies, Adverse Reactions, Alerts Substance Reaction Severity [...] myesha 1Result Comment: [03/27/2017] [facility] [id number] 2Admin Note: At [facility] 3Admin Note: VIS GIVEN-DATED 01/02/12 4Admin Note: VIS GIVEN VIS DATE 01/25/11 5Admin Note: vis given vis date 02/09/2010 6Admin Note: VIS GIVEN 7Admin Note: VIS GIVEN 8Admin Note: vis given Medications acetaminophen 500 mg oral tablet 2 tablet = 1,000 mg, By Mouth, Every 8 hours, for pain., # 100 tablet, 1 Refills, Maintenance, 05/06/20 17:16:00 EST, [facility]/pharmacy #0488, 162.56, cm, 05/06/20 16:24:00 EST, Height, 76.6, kg, 192:30:00 EST, Dry Weight Start Date: 05/06/20 Status: Ordered Albuterol (Eqv-ProAir HFA) 90 mcg/inh inhalation aerosol 2 puffs, Inhalation, Every 6 hours, PRN NEEDED FOR WHEEZING/SHORTNESS OF BREATH, # 8.5 each, 5 Refills, Maintenance, 04/26/21 9:56:00 EDT, [facility]/pharmacy #0488, 25, 2 puffs Inhalation Every 6 hours,PRN: NEEDED FOR WHEEZING/SHORTNESS OF BREATH, 162.... Start Date: 04/26/21 Status: Ordered Azithromycin 5 Day Dose Pack 250 mg oral tablet See Instructions, 1 pack/packet By Mouth as directed on package labeling, # 6 tablet, 0 Refills, Soft Stop, 04/28/21 9:45:00 EDT, Tablet, [facility]/pharmacy #0488, Partial fill upon patient request if the prescription is for a schedule II opioid drug., 162... Start Date: 04/28/21 Status: Ordered cetirizine 10 mg oral tablet 1 tablet, By Mouth, Daily, PRN NEEDED FOR ALLERGY SYMPTOMS, # 30 tablet, 5 Refills, Maintenance,02/15/21 8:32:00 EDT, [facility], 162.56, cm, 11/27/20 9:16:00 EDT, Height Start Date: 02/15/21 Stop Date: 03/17/21 Status: Ordered EpiPen 2-Thomas 0.3 mg injectable kit = 0.3 mg, Intramuscular, Once, # 1 pack/packet, 0 Refills, Soft Stop, 04/22/19 17:32:16 EDT Start Date: 04/22/19 Status: Ordered fluticasone 50 mcg/inh nasal spray See Instructions, USE 1 SPRAY INTO EACH NOSTRIL EVERY MORNING FOR 30 DAYS, # 16 mL, 5 Refills, [facility] ST[facility], 30, USE 1 SPRAY INTO EACH NOSTRIL EVERY MORNING FOR 30 DAYS, 162.56, cm, 04/02/21 13:19:00 EDT, Height Start Date: 04/19/21 Status: Ordered levothyroxine 0.112 mg oral tablet See Instructions, TAKE 1 TABLET BY MOUTH EVERY DAY, # 30 tablet, 5 Refills, [facility], 162.56, cm, 03/03/21 15:20:00 EDT, Height Start [...] 07/05/06(Confirmed) Active 1F/U by Dr. Gibbs at [facility]. ORal Steroid Trial given. Social History Social History Type Response Smoking Status Former smoker entered on: 11/13/16 Sex Female
--- OUTSIDE RECORDS SUMMARY | 2022-10-03 14:51 | XMS_ITS | Continuity of Care Document ---
Author Name Unknown Organization [facility] Address [address] [place] [address]- Care Team Providers Care Stone Engraver Name Role Phone Srikanth Narayan MD Primary Care Physician [phone] [facility]counter [facility] Date[facility]s): 07/06/21 - 08/05/21 [facility] [address] [place] [address]- Allergies, Adverse Reactions, Alerts Substance Reaction Severity [...] 8 06/30/08 Gi myesha 1Result Comment: [03/27/2017] [facility] [id number] 2Admin Note: At [facility] 3Admin Note: VIS GIVEN-DATED 01/02/12 4Admin Note: VIS GIVEN VIS DATE 01/25/11 5Admin Note: vis given vis date 02/09/2010 6Admin Note: VIS GIVEN 7Admin Note: VIS GIVEN 8Admin Note: vis given Medications acetaminophen 500 mg oral tablet 2 tablet = 1,000 mg, By Mouth, Every 8 hours, for pain., # 100 tablet, 1 Refills, Maintenance, 05/06/20 17:16:00 EST, [facility]/pharmacy #0488, 162.56, cm, 05/06/20 16:24:00 EST, Height, 76.6, kg, :30:00 EST, Dry Weight Start Date: 05/06/20 Status: Ordered Albuterol (Eqv-ProAir HFA) 90 mcg/inh inhalation aerosol 2 puffs, Inhalation, Every 6 hours, PRN NEEDED FOR WHEEZING/SHORTNESS OF BREATH, # 8.5 each, 5 Refills, Maintenance, 04/26/21 9:56:00 EDT, [facility]/pharmacy #0488, 25, 2 puffs Inhalation Every 6 hours,PRN: NEEDED FOR WHEEZING/SHORTNESS OF BREATH, 162.... Start Date: 04/26/21 Status: Ordered Azithromycin 5 Day Dose Pack 250 mg oral tablet See Instructions, 1 pack/packet By Mouth as directed on package labeling, # 6 tablet, 0 Refills, Soft Stop, 04/28/21 9:45:00 EDT, Tablet, [facility]/pharmacy #0488, Partial fill upon patient request if the prescription is for a schedule II opioid drug., 162... Start Date: 04/28/21 Status: Ordered cetirizine 10 mg oral tablet 1 tablet, By Mouth, Daily, PRN NEEDED FOR ALLERGY SYMPTOMS, # 30 tablet, 5 Refills, Maintenance,02/15/21 8:32:00 EDT, [facility] STORE 17752, 162.56, cm, 11/27/20 9:16:00 EDT, Height Start Date: 02/15/21 Stop Date: 03/17/21 Status: Ordered EpiPen 2-Thomas 0.3 mg injectable kit = 0.3 mg, Intramuscular, Once, # 1 pack/packet, 0 Refills, Soft Stop, 04/22/19 17:32:16 EDT Start Date: 04/22/19 Status: Ordered fluticasone 50 mcg/inh nasal spray See Instructions, USE 1 SPRAY INTO EACH NOSTRIL EVERY MORNING FOR 30 DAYS, # 16 mL, 5 Refills, [facility], 30, USE 1 SPRAY INTO EACH NOSTRIL EVERY MORNING FOR 30 DAYS, 162.56, cm, 04/02/21 13:19:00 EDT, Height Start Date: 04/19/21 Status: Ordered levothyroxine 0.112 mg oral tablet See Instructions, TAKE 1 TABLET BY MOUTH EVERY DAY, # 30 tablet, 2 Refills, 06/14/21 15:32:00 EST, [facility]/pharmacy #0488, duplicate rx. original sent 03/03/21. remaining [...] tablet, 0 Refills, Maintenance, 03/26/21 18:12:00 EDT, [facility]/pharmacy #0488, Partial fill upon patient request if [...] 1 Refills, Maintenance, 02/24/21 16:06:00 EDT, [facility], Partial fill upon patient request if the [...] 07/05/06(Confirmed) Active 1F/U by Dr. Gibbs at [facility]. ORal Steroid Trial given. Social History Social History Type Response Smoking Status Former smoker entered on: 11/13/16 Sex Female
--- OUTSIDE RECORDS SUMMARY | 2022-10-03 14:51 | XMS_ITS | Continuity of Care Document ---
Author Name Unknown Organization [facility] Address [address] [place] [address]- Care Team Providers Care Autoclave Operator Name Role Phone Srikanth Narayan MD Primary Care Physician [facility]): 11/25/21 - 12/25/21 [facility] [address] [place] [address]- Attending Physician: Admtr, Ar8 Allergies, Adverse Reactions, [...] 8 06/30/08 Gi myesha 1Result Comment: [03/27/2017] [facility] [id number] 2Admin Note: At [facility] 3Admin Note: VIS GIVEN-DATED 01/02/12 4Admin Note: [...] 10/12/21 10:38:00 EDT, Route to Pharmacy Electronically, [facility]/pharmacy #[id number], Partial fill upon patient request if [...] Refills, Soft Stop, 11/26/21 14:03:00 EDT, Tablet, [facility]/pharmacy #0488, Partial fill upon patient request if the prescription is for a schedule II opioid... Start Date: 11/26/21 Status: Ordered fluconazole 150 mg oral tablet 1 tablet = 150 mg, By Mouth, Once, Acute, # 1 tablet, 0 Refills, Soft Stop, 12/06/21 8:08:00 EDT, [facility]/pharmacy #0488, Partial fill upon patient request if the prescription is for a schedule II opioiddrug., 167, cm, 11/26/21 13:55:00 EDT, Height, 87.9... Start Date: 12/06/21 Status: Ordered fluticasone 50 mcg/inh nasal spray See Instructions, USE 1 SPRAY INTO EACH NOSTRIL EVERY MORNING FOR 30 DAYS, # 16 mL, 2 Refills, [facility] STORE 27672, 30, USE 1 SPRAY INTO EACH NOSTRIL EVERY MORNING FOR 30 DAYS, 167, cm, 11/04/21 10:58:00EDT, Height, 87.9, kg, 08/23/21 21:04:00 EST, Dry W... Start Date: 11/17/21 Status: Ordered levothyroxine 125 mcg (0.125 mg) oral tablet 1 tablet = 125 mcg, By Mouth, Daily, # 90 tablet, 3 Refills, Maintenance, 10/20/21 17:29:00 EDT, Tablet, [facility]/pharmacy #0488, Partial fill upon patient request if the prescription is for a schedule IIopioid drug., 167, cm, 10/12/21 10:13:00 EDT, [facility]... Start Date: 10/20/21 Stop Date: 10/15/22 Status: Ordered ProAir HFA 90 mcg/inh inhalation aerosol with adapter 2, puffs, Inhalation, Every 6 hours, PRN, # 8.5 each, Refills 5, Tot. Refills 5, Maintenance, 10/11/21 10:23:00 EDT, Route to Pharmacy Electronically, [id number], [facility]/pharmacy #0488, 167, cm, 09/15/21 15:38:00 EDT, Height, [...] tablet, 0 Refills, Maintenance, 03/26/21 18:12:00 EDT, [facility]/pharmacy #0488, Partial fill upon patient request if [...] 1 Refills, Maintenance, 02/24/21 16:06:00 EDT, [facility], Partial fill upon patient request if the [...] 07/05/06(Confirmed) Active 1F/U by Dr. Gibbs at [facility]. ORal Steroid Trial given. Social History Social History Type Response Smoking Status Former smoker entered on: 11/13/16 Sex Female
--- OUTSIDE RECORDS SUMMARY | 2022-10-03 14:51 | XMS_ITS | Continuity of Care Document ---
Author Name Unknown Organization [facility] Address [address] [place] [address]- Care Team Providers Care Trailer Chief Name Role Phone Srikanth Narayan MD Primary Care Physician [phone] [facility] 03[facility]21 - 03/31/21 [facility] [address] [place] [address]- Allergies, Adverse Reactions, Alerts Substance Reaction Severity [...] 06/30/08 Gi myesha 1Result Comment: [03/27/2017] [facility] [id number] 2Admin Note: [facility] 3Admin Note: VIS [...] 10/22/19 14:56:00 EDT, Route to Pharmacy Electronically, [facility]/pharmacy #0488, 162.56, cm, 08/02/19 10:02:00 EST, Height, 76.6, kg,... Start Date: 10/22/19 Status: Ordered acetaminophen 500 mg oral tablet 2 tablet = 1,000 mg, By Mouth, Every 8 hours, for pain., # 100 tablet, 1 Refills, Maintenance, 05/06/20 17:16:00 EST, [facility]/pharmacy #0488, 162.56, cm, 05/06/20 16:24:00 EST, Height, 76.6, kg, :30:00 EST, Dry Weight Start Date: 05/06/20 Status: Ordered cetirizine 10 mg oral tablet 1 tablet, By Mouth, Daily, PRN NEEDED FOR ALLERGY SYMPTOMS, # 30 tablet, 5 Refills, Maintenance,02/15/21 8:32:00 EDT, [facility] STORE [address], 162.56, cm, 11/27/20 9:16:00 EDT, Height Start Date: 02/15/21 Stop Date: 03/17/21 Status: Ordered EpiPen 2-Thomas 0.3 mg injectable kit = 0.3 mg, Intramuscular, Once, # 1 pack/packet, 0 Refills, Soft Stop, 04/22/19 17:32:16 EDT Start Date: 04/22/19 Status: Ordered Flonase 50 mcg/inh nasal spray 1 sprays, Nares, Both, Daily in AM, # 16 Gm, 2 Refills, Maintenance, 11/02/20 14:46:00 EDT, [place], [facility]/pharmacy #0488, 1 sprays Nares, Both Daily in AM,x30 days, 162.56, cm, 08/20/20 13:28:00 EST, Height Start Date: 11/02/20 Stop Date: 01/31/21 Status: Ordered levothyroxine 0.112 mg oral tablet See Instructions, TAKE 1 TABLET BY MOUTH EVERY DAY, # 30 tablet, 5 Refills, [facility] STORE [address]44, 162.56, cm, 03/03/21 15:20:00 EDT, Height Start Date: 03/03/21 Status: Ordered ProAir HFA 90 mcg/inh inhalation aerosol with adapter 2, puffs, Inhalation, Every 6 hours, PRN, # 8.5 Gm, Refills 11, Tot. Refills 11, Maintenance, 10/22/19 14:57:00 EDT, Aerosol, Route to Pharmacy Electronically, [id number], [facility]/pharmacy #0488, 162.56, cm, 08/02/19 10:02:00 EST... Start Date: 10/22/19 Status: Ordered Sudafed 30 mg oral tablet 1 tablet = 30 mg, By Mouth, Every 6 hours, PRN Congestion, # 24 tablet, 0 Refills, Maintenance, 03/26/21 18:12:00 EDT, [facility]/pharmacy #0488, Partial fill upon patient request if the prescription is fora schedule II opioid drug., 162.56, cm, 03/26/21 18... Start Date: 03/26/21 Status: Ordered Vitamin D3 1000 intl units oral capsule 1 capsule = 1,000 International_Units, By Mouth, Daily, # 90 capsule, 1 Refills, Maintenance, 12/16/20 10:54:00 EDT, [facility]/pharmacy #0488, 162.56, cm, 11/27/20 9:16:00 EDT, Height Start Date: 12/16/20 Stop Date: 06/14/21 Status: Ordered Voltaren 1% topical gel = 2 Gm, Topically, 4 times a day, PRN Pain , Moderate, resent, # 100 Gm, 1 Refills, Maintenance, 02/24/21 16:06:00 EDT, [facility]/pharmacy #0488, Partial fill upon patient request if the prescription is for a schedule II opioid drug., 2 Gm Topically 4 times... Start Date: 02/24/21 Status: Ordered Problem List Condition Effective Dates Status Health Status Inform ant Adult celiac disease(Confirmed) Active Allergic reaction(Confirmed) Active Asthma, Mild Intermittent, S een by Dr. Sanchez/Alicia Michel 2007(Confirmed) Active Bipolar disorder- on Fluoxetine(Confirmed) Active Pyelonephritis complicating - on Keflex suppression(Confirmed) Active Hypothyroidism(Confirmed) Active Polyarthritis(Confirmed) 1 Active Reflux, Laryngeal(Confirmed) Active Severe major depression(Confirmed) Active LEFT Shoulder joint pain, MR I 11/01/06, Type III acromion with impingement. Sched for Sx 07/05/06(Confirmed) Active 1F/U by Dr. Gibbs at [facility]. ORal Steroid Trial given. Social History Social History Type Response Smoking Status Former smoker entered on: 11/13/16 Sex Female
--- OUTSIDE RECORDS SUMMARY | 2022-10-03 14:51 | XMS_ITS | Continuity of Care Document ---
Author Name Unknown Organization [facility] Address [address] [place] [address]- Care Team Providers Care Medical Records Clerk Name Role Phone Srikanth Narayan MD Primary Care Physician [phone] [facility]counter [facility] Date(s): 12/16/20 - 01/15/21 [facility] [address] [place] [id number]- Allergies, Adverse Reactions, Alerts Substance Reaction Severity [...] 8 06/30/08 Gi myesha 1Result Comment: [03/27/2017] [facility] [id number] [facility] 3Admin Note: VIS [...] 05/06/20 17:15:00 EST, [id number], cm, 05/06/20 16:24:00 EST, [...] 2 Refills, Maintenance, 11/02/20 14:46:00 EDT, Tablet, [facility]/pharmacy #[id number], 162.56, cm, 08/20/20 13:28:00 EST, Height Start Date: 11/02/20 Stop Date: 01/31/21 Status: Ordered EpiPen 2-Thomas 0.3 mg injectable kit = 0.3 mg, Intramuscular, Once, # 1 pack/packet, 0 Refills, Soft Stop, 04/22/19 17:32:16 EDT Start Date: 04/22/19 Status: Ordered Flonase 50 mcg/inh nasal spray 1 sprays, Nares, Both, Daily in AM, # 16 Gm, 2 Refills, Maintenance, 11/02/20 14:46:00 EDT, [place], [facility]/pharmacy #[id number], 1 sprays Nares, Both Daily in AM,x30 days, 162.56, cm, 08/20/20 13:28:00 EST, Height Start Date: 11/02/20 Stop Date: 01/31/21 Status: Ordered levothyroxine 0.112 mg oral tablet 1 tablet = 112 mcg, By Mouth, Daily, # 30 tablet, 5 Refills, Maintenance, 12/14/20 9:01:00 EDT, [facility]/pharmacy #[id number], 162.56, cm, 11/27/20 9:16:00 EDT, Height Start Date: 12/14/20 Status: Ordered ProAir HFA 90 mcg/inh inhalation aerosol with adapter 2, puffs, Inhalation, Every 6 hours, PRN, # 8.5 Gm, Refills 11, Tot. Refills 11, Maintenance, 10/22/19 14:57:00 EDT, Aerosol, Route to Pharmacy Electronically, [id number], [facility]/pharmacy #0488, 162.56, cm, 08/02/19 10:02:00 EST... Start Date: 10/22/19 Status: Ordered Vitamin D3 1000 intl units oral capsule 1 capsule = 1,000 International_Units, By Mouth, Daily, # 90 capsule, 1 Refills, Maintenance, 12/16/20 10:54:00 EDT, [id number], 162.56, cm, 11/27/20 9:16:00 EDT, Height Start Date: 12/16/20 Stop Date: 06/14/21 Status: Ordered Problem List Condition Effective Dates [...] 07/05/06(Confirmed) Active 1F/U by Dr[facility] at [facility]. ORal Steroid Trial given. Social History Social History Type Response Smoking Status Former smoker entered on: 11/13/16 Sex Female
--- OUTSIDE RECORDS SUMMARY | 2022-10-03 14:51 | XMS_ITS | Continuity of Care Document ---
Author Name Unknown Organization [facility] Address [address] [place] [address]- Care Team Providers Care Thermal Cutting Machine Operator Name Role Phone Desmond Hogan Primary Care Physician Encounter [facility] Date(s): 05/20/22 - 06/19/22 [facility] [address] [place] [address]- Allergies, Adverse Reactions, Alerts Substance Reaction Severity [...] Gi myesha 1Result Comment: [03/27/2017] [facility] [id number] 2Admin Note: [facility] 3Admin Note: VIS [...] 10/12/21 10:38:00 EDT, Route to Pharmacy Electronically, [facility]/pharmacy #[id number], Partial fill upon patient request if the prescription is for a sc... Start Date: 10/12/21 Status: Ordered baclofen 10 mg oral tablet 10 mg, 1, tablet, By Mouth, 2 times a day, PRN, # 30 tablet, Refills 0, Tot. Refills 0, Maintenance, muscle spasm, 04/18/22 10:33:00 EDT, [id number], Partialfill upon patient request if [...] each, 5 Refills, Maintenance, 05/24/22 10:53:00 EST, [facility]/pharmacy #[id number], Partial fill upon patient request if the prescription is for a schedule II opioid drug., 167, cm, 05/24/... Start Date: 05/24/22 Status: Ordered fluconazole 150 mg oral tablet 1 tablet = 150 mg, By Mouth, Once, Repeat dose if still having symptoms in 72 hours, # 2 tablet, 0 Refills, Soft Stop, 11/26/21 14:03:00 EDT, Tablet, [facility]/pharmacy #[id number], Partial fill upon patient request if the prescription is for a schedule II opioid... Start Date: 11/26/21 Status: Ordered fluconazole 150 mg oral tablet 1 tablet = 150 mg, By Mouth, Once, Acute, # 1 tablet, 0 Refills, Soft Stop, 12/06/21 8:08:00 EDT, [facility]/pharmacy #[id number], Partial fill upon patient request if the prescription is for a schedule II opioiddrug., 167, cm, 11/26/21 13:55:00 EDT, Height, 87.9... Start Date: 12/06/21 Status: Ordered FLUoxetine (Eqv-Prozac) 20 mg oral tablet 1 tablet = 20 mg, By Mouth, Daily, # 30 tablet, 1 Refills, Maintenance, 03/16/22 15:00:00 EDT, Tablet, [facility]/pharmacy #[id number], Partial fill upon patient request if the prescription is for a schedule II opioid drug., 167, cm, 03/16/22 13:56:00 EDT, Height,... Start Date: 03/16/22 Stop Date: 05/15/22 Status: Ordered fluticasone 50 mcg/inh nasal spray See Instructions, USE 1 SPRAY INTO EACH NOSTRIL EVERY MORNING FOR 30 DAYS, # 16 mL, 2 Refills, [facility], 30, USE 1 SPRAY INTO EACH NOSTRIL EVERY MORNING FOR 30 DAYS, 167, cm, 11/04/21 10:58:00EDT, Height, 87.9, kg, 08/23/21 21:04:00 EST, Dry W... Start Date: 11/17/21 Status: Ordered levothyroxine 125 mcg (0.125 mg) oral tablet 1 tablet = 125 mcg, By Mouth, Daily, # 30 tablet, 5 Refills, Maintenance, 05/17/22 16:56:00 EST, Tablet, [facility]/pharmacy #[id number], Partial fill upon patient request if the prescription is for a schedule IIopioid drug., 167, cm, 04/18/22 10:00:00 EDT, Heigh... Start Date: 05/17/22 Stop Date: 11/13/22 Status: Ordered ProAir HFA 90 mcg/inh inhalation aerosol with adapter 2, puffs, Inhalation, Every 6 hours, PRN, # 8.5 each, Refills 5, Tot. Refills 5, Maintenance, 10/11/21 10:23:00 EDT, Route to Pharmacy Electronically, [id number], [facility]/pharmacy #[id number], 167, cm, 09/15/21 15:38:00 [...] tablet, 0 Refills, Maintenance, 03/26/21 18:12:00 EDT, [facility]/pharmacy #[id number], Partial fill upon patient [...] Gm, 1 Refills, Maintenance, 02/24/21 16:06:00 EDT, [facility]/pharmacy #[id number], Partial fill upon patient [...] Active 1F/U by Dr. Gibbs at [facility]. ORal Steroid Trial given. Social History Social History Type Response Smoking Status Former smoker entered on: 11/13/16 Sex Female Patient Care team information Care Team Personnel Name: Desmond Hogan Position: [facility] PCO Associate Professional Member Role: PCP Address: Address: [address] [place] [address]- Name: Espinoza Alamo RN Position: [facility] RN Member Role: Primary Care Nurse Name: Jamel Flor RN Position: [facility] RN Member Role: Primary Care Nurse Name: Candi Eisenberg RN Position: [facility] RN Member Role: Primary Care Nurse Name: Gilmar Mckeon RN Position: [facility] SN RN Member Role: Primary Care Nurse Name: Catalina Reece RN Position: [facility] OB RN Member Role: Primary Care Nurse Name: Elizabeth Rowland RN Position: [facility] Onco RN Member Role: Primary Care Nurse Care Team Related Persons Name: IGNACIO ALEJO Address: home [address] [place] [address]
--- OUTSIDE RECORDS SUMMARY | 2022-10-03 14:51 | XMS_ITS | Continuity of Care Document ---
Author Name Unknown Organization [facility] Address [address] [place] [address]- Care Team Providers Care Ekg Tech Name Role Phone Srikanth Narayan MD Primary Care Physician [facility]counter [facility] Date(s): 12/01/21 - 12/31/[address] [address] Allergies, Adverse Reactions, Alerts Substance Reaction Severity [...] influenza virus vaccine, inactivated 7 05/23/06 Gi ymesha tetanus/diphtheria/pertussis, acel(Tdap) 12/31/13 Given pneumococcal 23-valent vaccine 12/13/10 Given Tet/Diphth/Acel, Pertussis (oldterm) 8 06/30/08 Gi myesha 1Result Comment: [03/27/2017] [facility] [id number] 2Admin Note: At [facility] [...] Refills, Soft Stop, 11/26/21 14:03:00 EDT, Tablet, [facility]/pharmacy #[id number], Partial fill upon patient request if the prescription is for a schedule II opioid... Start Date: 11/26/21 Status: Ordered fluconazole 150 mg oral tablet 1 tablet = 150 mg, By Mouth, Once, Acute, # 1 tablet, 0 Refills, Soft Stop, 12/06/21 8:08:00 EDT, [facility]/pharmacy #[id number], Partial fill upon patient request if the prescription is for a schedule II opioiddrug., 167, cm, 11/26/21 13:55:00 EDT, Height, 87.9... Start Date: 12/06/21 Status: Ordered fluticasone 50 mcg/inh nasal spray See Instructions, USE 1 SPRAY INTO EACH NOSTRIL EVERY MORNING FOR 30 DAYS, # 16 mL, 2 Refills, [facility], 30, USE 1 SPRAY INTO EACH NOSTRIL EVERY MORNING FOR 30 DAYS, 167, cm, 11/04/21 10:58:00EDT, Height, 87.9, kg, 02/21/22 21:04:00 EST, Dry W... Start Date: 11/17/21 Status: Ordered levothyroxine 125 mcg (0.125 mg) oral tablet 1 tablet = 125 mcg, By Mouth, Daily, # 90 tablet, 3 Refills, Maintenance, 10/20/21 17:29:00 EDT, Tablet, [facility]/pharmacy [...] 10/11/21 10:23:00 EDT, Route to Pharmacy Electronically, [id number], [facility]/pharmacy #[id number], 167, cm, 09/15/21 15:38:00 EDT, [...] Refills, Maintenance, 03/26/21 18:12:00 EDT, [facility]/pharmacy #0488, [...] Gm, 1 Refills, Maintenance, 02/24/21 16:06:00 EDT, [facility]/pharmacy #0458, Partial fill upon patient request if the [...] 07/05/06(Confirmed) Active 1F/U by Dr. Gibbs at [facility]. ORal Steroid Trial given. Social History Social History Type Response Smoking Status Former smoker entered on: 11/13/16 Sex Female
--- OUTSIDE RECORDS SUMMARY | 2022-10-03 14:51 | XMS_ITS | Continuity of Care Document ---
Author Name Unknown Organization [facility] Address [address] [place] [address]- Care Team Providers Care Rail Signal Worker Name Role Phone Srikanth Narayan MD Primary Care Physician [facility] Date(s): 06/05/19 - 07/05/19 [facility] [address] [place] [address]- [facility] Attending Physician: Not on Staff, Attending MD [...] 8 06/30/08 Gi myesha 1Result Comment: [03/27/2017] [facility] [id number] 2Admin [facility] 3Admin Note: VIS [...] 10:58:31 EDT, Aerosol, Route to Pharmacy Electronically, [id number], [facility]/pharmacy #[id number] Start Date: 01/17/18 Status: Ordered [...] 07/05/06(Confirmed) Active 1F/U by Dr. Gibbs at [facility]. ORal Steroid Trial given. Social History Social History Type Response Smoking Status Former smoker entered on: 11/13/16 Sex Female
--- OUTSIDE RECORDS SUMMARY | 2022-10-03 14:51 | XMS_ITS | Continuity of Care Document ---
Author Name Unknown Organization [facility] Address [address] [place] [address]- Care Team Providers Care Analyzer Sales Name Role Phone Srikanth Narayan MD Primary Care Physician Encounter [facility] Date(s): 03/19/20 - 04/18/[address] [address]- [facility] Attending Physician: AdmJhonatan [id number] Admitting Physician: AdmtrMatt Referring Physician: Admtr, Ar8 [...] [03/27/2017] [facility] [id number] 2Admin Note[facility] 3Admin Note: VIS [...] 10/22/19 14:56:00 EDT, Route to Pharmacy Electronically, [facility]/pharmacy #[id number], 162.56, cm, 08/02/19 10:02:00 EST, Height, 76.6, kg,... Start Date: 10/22/19 Status: Ordered celecoxib 200 mg oral capsule 1 capsule = 200 mg, By Mouth, Daily, BAUTISTA 2 trials., # 14 capsule, 1 Refills, Maintenance, 01/28/20 9:52:00 EDT, Capsule, [facility]/pharmacy #[id number], 162.56, cm, 12/31/19 8:29:00 EDT, Height, 76.6, kg, 08/18/18 2:30:00 EST, Dry Weight Start Date: 01/28/20 Stop Date: 02/25/20 Status: Ordered cetirizine 10 mg oral tablet 1 tablet = 10 mg, By Mouth, Daily, PRN for allergy symptoms, # 30 tablet, 2 Refills, Maintenance, 11/06/19 9:21:00 EDT, Tablet, [facility]/pharmacy #0488, 162.56, cm, 08/02/19 [...] tablet, 5 Refills, Maintenance, 12/18/19 18:47:00 EDT, [facility]/pharmacy #0488, 162.56, cm, 08/02/19 10:02:00 EST, Height, 76.6, kg, 08/18/18 2:30:00 EST, Dry Weight Start Date: 12/18/19 Status: Ordered ProAir HFA 90 mcg/inh inhalation aerosol with adapter 2, puffs, Inhalation, Every 6 hours, PRN, # 8.5 Gm, Refills 11, Tot. Refills 11, Maintenance, 10/22/19 14:57:00 EDT, Aerosol, Route to Pharmacy Electronically, [id number], [facility]/pharmacy #0488, 162.56, cm, 08/02/19 10:02:00 EST... Start Date: 10/22/19 Status: Ordered Vitamin D3 1000 intl units oral capsule 1 capsule = 1,000 International_Units, By Mouth, Daily, # 90 capsule, 3 Refills, Maintenance, 12/18/19 18:48:00 EDT, [facility]/pharmacy #0488, 162.56, cm, 08/02/19 [...] 07/05/06(Confirmed) Active 1F/U by Dr. Gibbs at [facility]. ORal Steroid Trial given. Social History Social History Type Response Smoking Status Former smoker entered on: 11/13/16 Sex Female
--- OUTSIDE RECORDS SUMMARY | 2022-10-03 14:51 | XMS_ITS | Continuity of Care Document ---
Author Name Unknown Organization [facility] Address [address] [place] [address]- Care Team Providers Care Certified Medical Coder Name Role Phone Srikanth Narayan MD Primary Care Physician Encounter [facility] Date(s): 06/28/19 - 08/03/[address] [address]- [facility] Attending Physician: Christine Abebe Admitting Physician: Christine Abebe Referring Physician: Christine Abebe Allergies, Adverse Reactions, Alerts Substance Reaction Severity [...] Comment: [03/27/2017] [facility] [id number] 2Admin Note: [facility] 3Admin Note: VIS [...] 0 Refills, Maintenance, 08/02/19 10:47:00 EST, Tablet, [facility]/pharmacy #0488, 162.56, cm, 08/02/19 10:02:00 EST, [...] 10:58:31 EDT, Aerosol, Route to Pharmacy Electronically, [id number], [facility]/pharmacy #[id number] Start Date: 01/17/18 Status: Ordered Problem [...] 07/05/06(Confirmed) Active 1F/U by Dr. Gibbs at [facility]. ORal Steroid Trial given. Social History Social History Type Response Smoking Status Former smoker entered on: 11/13/16 Sex Female
--- OUTSIDE RECORDS SUMMARY | 2022-10-03 14:51 | XMS_ITS | Continuity of Care Document ---
Author Name Unknown Organization [facility] Address [address] [place] [address]- Care Team Providers Care Foundry Melt Supervisor Name Role Phone Srikanth Narayan MD Primary Care Physician [facility] Date(s): 03/24/21 - 04/23/21 [facility] [address] [place], [place] [address] Allergies, Adverse Reactions, Alerts Substance Reaction [...] Comment: [03/27/2017] [facility] [id number] 2Admin [facility]: [facility] 3Admin Note: VIS [...] 10/22/19 14:56:00 EDT, Route to Pharmacy Electronically, [facility]/pharmacy #0488, 162.56, cm, 08/02/19 [...] Maintenance,02/15/21 8:32:00 EDT, [facility] STORE 10704, 162.56, cm, 11/27/20 9:16:00 EDT, Height Start Date: 02/15/21 Stop Date: 03/17/21 Status: Ordered EpiPen 2-Thomas 0.3 mg injectable kit = 0.3 mg, Intramuscular, Once, # 1 pack/packet, 0 Refills, Soft Stop, 04/22/19 17:32:16 EDT Start Date: 04/22/19 Status: Ordered fluticasone 50 mcg/inh nasal spray See Instructions, USE 1 SPRAY INTO EACH NOSTRIL EVERY MORNING FOR 30 DAYS, # 16 mL, 5 Refills, [facility] STORE [facility]1941, 30, USE 1 SPRAY INTO EACH NOSTRIL EVERY MORNING FOR 30 DAYS, 162.56, cm, 04/02/21 13:19:00 EDT, Height Start Date: 04/19/21 Status: Ordered levothyroxine 0.112 mg oral tablet See Instructions, TAKE 1 TABLET BY MOUTH EVERY DAY, # 30 tablet, 5 Refills, [facility] 96253, 162.56, cm, 03/03/21 15:20:00 EDT, Height Start Date: 03/03/21 Status: Ordered ProAir HFA 90 mcg/inh inhalation aerosol with adapter 2, puffs, Inhalation, Every 6 hours, PRN, # 8.5 Gm, Refills 11, Tot. Refills 11, Maintenance, 10/22/19 14:57:00 EDT, Aerosol, Route to Pharmacy Electronically, [id number], [facility]/pharmacy #0488, 162.56, cm, 08/02/19 [...] 07/05/06(Confirmed) Active 1F/U by Dr. Gibbs at [facility]. ORal Steroid Trial given. Social History Social History Type Response Smoking Status Former smoker entered on: 11/13/16 Sex Female
--- OUTSIDE RECORDS SUMMARY | 2022-10-03 14:51 | XMS_ITS | Continuity of Care Document ---
Author Name Unknown Organization [facility] Address [address] [place] [address]- Care Team Providers Care Real Estate Utilization Officer Name Role Phone Srikanth Narayan MD Primary Care Physician Encounter [facility] Date(s): 10/29/21 - 11/28/21 [facility] [address] [place], [place] [address] Attending Physician: Matt Edge Admitting Physician: AdmtrMatt Referring Physician: Admtr, Ar8 [...] 1Result Comment: [03/27/2017] [facility] [id number] 2Admin Note: At [facility] 3Admin Note: VIS GIVEN-DATED 01/02/12 [...] 10/12/21 10:38:00 EDT, Route to Pharmacy Electronically, [facility]/pharmacy #[id number], Partial fill upon patient request if the prescription is for a sc... Start Date: 10/12/21 Status: Ordered clotrimazole 2% vaginal cream with applicator 1 applicator, Vaginally, 2 times a day, PRN Rash, for 7 days, May apply externally twice daily for 7 days, as needed, for itching and irritation., # 21 Gm, 0 Refills, Acute 12/03/21 14:05:00 EDT, 11/26/21 14:05:00 EDT, Cream, [facility]/pharmacy #0488, Parti... Start Date: 11/26/21 Stop Date: 12/03/21 Status: Ordered EpiPen 2-Thomas 0.3 mg injectable kit = 0.3 mg, Intramuscular, Once, # 1 pack/packet, 0 Refills, Soft Stop, 04/22/19 17:32:16 EDT Start Date: 04/22/19 Status: Ordered fluconazole 150 mg oral tablet 1 tablet = 150 mg, By Mouth, Once, Repeat dose if still having symptoms in 72 hours, # 2 tablet, 0 Refills, Soft Stop, 11/26/21 14:03:00 EDT, Tablet, [facility]/pharmacy #0488, Partial fill upon patient request if the prescription is for a schedule II opioid... Start Date: 11/26/21 Status: Ordered fluticasone 50 mcg/inh nasal spray See Instructions, USE 1 SPRAY INTO EACH NOSTRIL EVERY MORNING FOR 30 DAYS, # 16 mL, 2 Refills, [facility]ORE [facility], 30, USE 1 SPRAY INTO EACH NOSTRIL EVERY MORNING FOR 30 DAYS, 167, cm, 11/04/21 10:58:00EDT, Height, 87.9, kg, 08/23/21 21:04:00 EST, Dry W... Start Date: 11/17/21 Status: Ordered levothyroxine 125 mcg (0.125 mg) oral tablet 1 tablet = 125 mcg, By Mouth, Daily, # 90 tablet, 3 Refills, Maintenance, 10/20/21 17:29:00 EDT, Tablet, [facility]/pharmacy #0488, Partial fill upon patient request if the prescription is for a schedule IIopioid drug., 167, cm, 10/12/21 10:13:00 EDT, Heigh... Start Date: 10/20/21 Stop Date: 10/15/22 Status: Ordered ProAir HFA 90 mcg/inh inhalation aerosol with adapter 2, puffs, Inhalation, Every 6 hours, PRN, # 8.5 each, Refills 5, Tot. Refills 5, Maintenance, 10/11/21 10:23:00 EDT, Route to Pharmacy Electronically, [id number], [facility]/pharmacy #0488, 167, cm, 09/15/21 15:38:00 [...] tablet, 0 Refills, Maintenance, 03/26/21 18:12:00 EDT, [facility]/pharmacy #[id number], Partial fill upon patient [...] 07/05/06(Confirmed) Active 1F/U by Dr. Gibbs at [facility]. ORal Steroid Trial given. Social History Social History Type Response Smoking Status Former smoker entered on: 11/13/16 Sex Female
--- OUTSIDE RECORDS SUMMARY | 2022-10-03 14:51 | XMS_ITS | Continuity of Care Document ---
Author Name Unknown Organization [facility] Address [address] [place] [address]- Care Team Providers Care Telegraph Installer Name Role Phone Srikanth Narayan MD Primary Care Physician [facility] Date(s): 09/02/19 - 10/16/19 [facility] [address] [place] [address]- [facility] Attending Physician: Not on Staff, [...] myesha 1Result Comment: [03/27/2017] [facility] [id number] 2[facility] 3Admin Note: VIS GIVEN-DATED 01/02/12 4Admin Note: VIS GIVEN VIS DATE 01/25/11 5Admin Note: vis given vis date 02/09/2010 6Admin Note: VIS GIVEN 7Admin Note: VIS GIVEN 8Admin Note: vis given Medications cetirizine 10 mg oral tablet 1 tablet = 10 mg, By Mouth, Daily, PRN for allergy symptoms, # 30 tablet, 2 Refills, Maintenance, 08/05/19 9:58:00 EST, Tablet, [facility]/pharmacy #0488, 162.56, [...] tablet, 5 Refills, Maintenance, 10/02/19 15:08:00 EDT, [facility]/pharmacy #0488, 162.56, cm, 08/02/19 10:02:00 EST, Height, 76.6, kg, 08/18/18 2:30:00 EST, Dry Weight Start Date: 10/02/19 Stop Date: 03/30/20 Status: Ordered meloxicam 7.5 mg oral tablet 1 tablet = 7.5 mg, By Mouth, Daily, PRN Pain , Moderate, # 14 tablet, 0 Refills, Maintenance, 08/02/19 10:47:00 EST, Tablet, [facility]/pharmacy #0488, 162.56, [...] 10:58:31 EDT, Aerosol, Route to Pharmacy Electronically, [id number], [id number] Start Date: 01/17/18 Status: Ordered [...] 07/05/06(Confirmed) Active 1F/U by Dr. Gibbs at [facility] [employer] ORal Steroid Trial given. Social History Social History Type Response Smoking Status Former smoker entered on: 11/13/16 Sex Female
--- OUTSIDE RECORDS SUMMARY | 2022-10-03 14:51 | XMS_ITS | Continuity of Care Document ---
Author Name Unknown Organization [facility] Address [address] [place] [address]- Care Team Providers Care Engineering Recruiter Name Role Phone Srikanth Narayan MD Primary Care Physician [facility] - 12/26/[address] [address]- Attending Physician: Admtr, Ar8 Allergies, Adverse Reactions, [...] 8 06/30/08 Gi myesha 1Result Comment: [03/27/2017] [facility] [id number] 2Admin Note: At [facility] 3Admin Note: VIS GIVEN-DATED 01/02/12 4Admin Note: [...] 10/12/21 10:38:00 EDT, Route to Pharmacy Electronically, [facility]/pharmacy #[id number], Partial fill upon patient request if [...] Refills, Soft Stop, 11/26/21 14:03:00 EDT, Tablet, [facility]/pharmacy #0488, Partial fill upon patient request if the prescription is for a schedule II opioid... Start Date: 11/26/21 Status: Ordered fluconazole 150 mg oral tablet 1 tablet = 150 mg, By Mouth, Once, Acute, # 1 tablet, 0 Refills, Soft Stop, 12/06/21 8:08:00 EDT, [facility]/pharmacy #0488, Partial fill upon patient request if the prescription is for a schedule II opioiddrug., 167, cm, 11/26/21 13:55:00 EDT, Height, 87.9... Start Date: 12/06/21 Status: Ordered fluticasone 50 mcg/inh nasal spray See Instructions, USE 1 SPRAY INTO EACH NOSTRIL EVERY MORNING FOR 30 DAYS, # 16 mL, 2 Refills, [facility] STORE [facility], 30, USE 1 SPRAY INTO EACH NOSTRIL EVERY MORNING FOR 30 DAYS, 167, cm, 11/04/21 10:58:00EDT, Height, 87.9, kg, 08/23/21 21:04:00 EST, Dry W... Start Date: 11/17/21 Status: Ordered levothyroxine 125 mcg (0.125 mg) oral tablet 1 tablet = 125 mcg, By Mouth, Daily, # 90 tablet, 3 Refills, Maintenance, 10/20/21 17:29:00 EDT, Tablet, [facility]/pharmacy #0488, Partial fill upon patient request if the prescription is for a schedule IIopioid drug., 167, cm, 10/12/21 10:13:00 EDT, Heigh... Start Date: 10/20/21 Stop Date: 10/15/22 Status: Ordered ProAir HFA 90 mcg/inh inhalation aerosol with adapter 2, puffs, Inhalation, Every 6 hours, PRN, # 8.5 each, Refills 5, Tot. Refills 5, Maintenance, 10/11/21 10:23:00 EDT, Route to Pharmacy Electronically, [id number], [facility]/pharmacy #0488, 167, cm, 09/15/21 15:38:00 EDT, Height, [...] 07/05/06(Confirmed) Active 1F/U by Dr. Gibbs at [facility]. ORal Steroid Trial given. Social History Social History Type Response Smoking Status Former smoker entered on: 11/13/16 Sex Female
--- OUTSIDE RECORDS SUMMARY | 2022-10-03 14:51 | XMS_ITS | Continuity of Care Document ---
Author Name Unknown Organization [facility] Address [address] [place] [address]- Care Team Providers Care Manager Port Name Role Phone Srikanth Narayan MD Primary Care Physician [facility]): 10/20/21 - 11/19/21 [facility] [address] [place] [address]- Allergies, Adverse Reactions, Alerts Substance Reaction Severity [...] 06/30/08 Gi myesha 1Result Comment: [03/27/2017] [facility] [id number] 2Admin Note: At [facility] 3Admin Note: VIS GIVEN-DATED 01/02/12 4Admin [...] 10/12/21 10:38:00 EDT, Route to Pharmacy Electronically, [facility]/pharmacy #[id number], Partial fill upon patient request [...] 30 DAYS, # 16 mL, 2 Refills, [facility] STORE [facility], 30, USE 1 SPRAY INTO EACH NOSTRIL EVERY MORNING FOR 30 DAYS, 167, cm, 11/04/21 10:58:00EDT, Height, 87.9, kg, 08/23/21 21:04:00 EST, Dry W... Start Date: 11/17/21 Status: Ordered levothyroxine 125 mcg (0.125 mg) oral tablet 1 tablet = 125 mcg, By Mouth, Daily, # 90 tablet, 3 Refills, Maintenance, 10/20/21 17:29:00 EDT, Tablet, [facility]/pharmacy #[id number], Partial fill upon patient request if the prescription is for a schedule IIopioid drug., 167, cm, 10/12/21 10:13:00 EDT, Heigh... Start Date: 10/20/21 Stop Date: 10/15/22 Status: Ordered ProAir HFA 90 mcg/inh inhalation aerosol with adapter 2, puffs, Inhalation, Every 6 hours, PRN, # 8.5 each, Refills 5, Tot. Refills 5, Maintenance, 10/11/21 10:23:00 EDT, Route to Pharmacy Electronically, [id number], [facility]/pharmacy #0488, 167, cm, 09/15/21 15:38:00 EDT, [...] tablet, 0 Refills, Maintenance, 03/26/21 18:12:00 EDT, [facility]/pharmacy #0488, Partial fill upon patient request [...] Gm, 1 Refills, Maintenance, 02/24/21 16:06:00 EDT, [facility]/pharmacy #[id number], Partial fill upon patient request [...] 07/05/06(Confirmed) Active 1F/U by Dr. Gibbs at [facility]. ORal Steroid Trial given. Social History Social History Type Response Smoking Status Former smoker entered on: 11/13/16 Sex Female
--- OUTSIDE RECORDS SUMMARY | 2022-10-03 14:51 | XMS_ITS | Continuity of Care Document ---
Author Name Unknown Organization [facility] Address [address] [place] [address]- Care Team Providers Care Canvas Cutter Name Role Phone Srikanth Narayan MD Primary Care Physician [facility]): 03/23/21 - 04/22/21 [facility] [address] [place], [place] [address] Allergies, Adverse Reactions, Alerts Substance Reaction [...] 06/30/08 Gi myesha 1Result Comment: [03/27/2017] [facility] [id number] 2Admin Note: At [facility] 3Admin Note: VIS [...] 10/22/19 14:56:00 EDT, Route to Pharmacy Electronically, [facility]/pharmacy #[id number], 162.56, cm, 08/02/19 10:02:00 EST, Height, 76.6, kg,... Start Date: 10/22/19 Status: Ordered acetaminophen 500 mg oral tablet 2 tablet = 1,000 mg, By Mouth, Every 8 hours, for pain., # 100 tablet, 1 Refills, Maintenance, 05/06/20 17:16:00 EST, [facility]/pharmacy #[id number], 162.56, cm, 05/06/20 16:24:00 EST, Height, 76.6, kg, :30:00 EST, Dry Weight Start Date: 05/06/20 Status: Ordered cetirizine 10 mg oral tablet 1 tablet, By Mouth, Daily, PRN NEEDED FOR ALLERGY SYMPTOMS, # 30 tablet, 5 Refills, Maintenance,02/15/21 8:32:00 EDT, [facility] STORE 15475, 162.56, cm, 11/27/20 9:16:00 EDT, Height Start Date: 02/15/21 Stop Date: 03/17/21 Status: Ordered EpiPen 2-Thomas 0.3 mg injectable kit = 0.3 mg, Intramuscular, Once, # 1 pack/packet, 0 Refills, Soft Stop, 04/22/19 17:32:16 EDT Start Date: 04/22/19 Status: Ordered fluticasone 50 mcg/inh nasal spray See Instructions, USE 1 SPRAY INTO EACH NOSTRIL EVERY MORNING FOR 30 DAYS, # 16 mL, 5 Refills, [facility] STORE [facility], 30, USE 1 SPRAY INTO EACH NOSTRIL EVERY MORNING FOR 30 DAYS, 162.56, cm, 04/02/21 13:19:00 EDT, Height Start Date: 04/19/21 Status: Ordered levothyroxine 0.112 mg oral tablet See Instructions, TAKE 1 TABLET BY MOUTH EVERY DAY, # 30 tablet, 5 Refills, [facility] STORE [address]196, 162.56, cm, 03/03/21 15:20:00 EDT, Height Start Date: 03/03/21 Status: Ordered ProAir HFA 90 mcg/inh inhalation aerosol with adapter 2, puffs, Inhalation, Every 6 hours, PRN, # 8.5 Gm, Refills 11, Tot. Refills 11, Maintenance, 10/22/19 14:57:00 EDT, Aerosol, Route to Pharmacy Electronically, [id number], [facility]/pharmacy #0488, 162.56, cm, 08/02/19 10:02:00 EST... [...] capsule, 1 Refills, Maintenance, 12/16/20 10:54:00 EDT, [facility]/pharmacy #0488, 162.56, cm, 11/27/20 9:16:00 EDT, [...] 07/05/06(Confirmed) Active 1F/U by Dr. Gibbs at [facility]. ORal Steroid Trial given. Social History Social History Type Response Smoking Status Former smoker entered on: 11/13/16 Sex Female
--- OUTSIDE RECORDS SUMMARY | 2022-10-03 14:51 | XMS_ITS | Continuity of Care Document ---
Author Name Unknown Organization [facility] Address [address] [place] [address]- Care Team Providers Care Metaphysician Name Role Phone Srikanth Narayan MD Primary Care Physician [facility] 08/23/21 - 09/22/21 [facility] [address] [place] [address]- Allergies, Adverse Reactions, Alerts Substance Reaction Severity [...] 06/30/08 Gi myesha 1Result Comment: [03/27/2017] [facility] [id number] 2Admin Note: At [facility] 3Admin Note: VIS GIVEN-DATED 01/02/12 4Admin Note: VIS GIVEN VIS DATE 01/25/11 5Admin Note: vis given vis date 02/09/2010 6Admin Note: VIS GIVEN 7Admin Note: VIS GIVEN 8Admin Note: vis given Medications acetaminophen 500 mg oral tablet 2 tablet = 1,000 mg, By Mouth, Every 8 hours, for pain., # 100 tablet, 1 Refills, Maintenance, 05/06/20 17:16:00 EST, [facility]/pharmacy #0488, 162.56, cm, 05/06/20 16:24:00 EST, Height, 76.6, kg, :30:00 EST, Dry Weight Start Date: 05/06/20 Status: Ordered Albuterol (Eqv-ProAir HFA) 90 mcg/inh inhalation aerosol 2 puffs, Inhalation, Every 6 hours, PRN NEEDED FOR WHEEZING/SHORTNESS OF BREATH, # 8.5 each, 5 Refills, Maintenance, 04/26/21 9:56:00 EDT, [facility]/pharmacy #0488, 25, 2 puffs Inhalation Every 6 hours,PRN: NEEDED FOR WHEEZING/SHORTNESS OF BREATH, 162.... Start Date: 04/26/21 Status: Ordered Azithromycin 5 Day Dose Pack 250 mg oral tablet See Instructions, 1 pack/packet By Mouth as directed on package labeling, # 6 tablet, 0 Refills, Soft Stop, 04/28/21 9:45:00 EDT, Tablet, [facility]/pharmacy #0488, Partial fill upon patient request [...] DAYS, # 16 mL, 5 Refills, [facility] STORE [address]2837, 30, USE 1 SPRAY INTO EACH NOSTRIL EVERY MORNING FOR 30 DAYS, 162.56, cm, 04/02/21 13:19:00 EDT, Height Start Date: 04/19/21 Status: Ordered levothyroxine 0.112 mg oral tablet 1 tablet, By Mouth, Daily, # 90 tablet, 3 Refills, Maintenance, 09/21/21 19:55:00 EDT, [facility]/pharmacy#0488, 167, cm, 09/15/21 15:38:00 EDT, Height, [...] 09/15/21 16:33:00 EDT, Route to Pharmacy Electronically, [facility]/pharmacy #[id number], Partial fill upon hunter... Start [...] 1 Refills, Maintenance, 02/24/21 16:06:00 EDT, [facility]/pharmacy #2415, Partial fill upon patient request if the [...] 07/05/06(Confirmed) Active 1F/U by Dr. Gibbs at [facility]. ORal Steroid Trial given. Social History Social History Type Response Smoking Status Former smoker entered on: 11/13/16 Sex Female
--- OUTSIDE RECORDS SUMMARY | 2022-10-03 14:51 | XMS_ITS | Continuity of Care Document ---
Author Name Unknown Organization [facility] Address [address] [place] [address]- Care Team Providers Care Infusion Rn Name Role Phone Sylvain LOVE, Srikanth Holguin Primary Care Physician [facility]): 08[facility]23/21 - 08/24/[address] [address]- Discharge Disposition: A-D/C Home Attending Physician: Doug Hewitt MD Admitting Physician: Doug Hewitt MD Referring Physician: Not on Staff, Referring MD Allergies, Adverse Reactions, Alerts Substance Reaction [...] 8 06/30/08 Gi myesha 1Result Comment: [03/27/2017] [facility] [id number] 2Admin Note: At [facility] 3Admin Note: VIS GIVEN-DATED 01/02/12 4Admin Note: VIS GIVEN VIS DATE 01/25/11 5Admin Note: vis given vis date 02/09/2010 6Admin Note: VIS GIVEN 7Admin Note: VIS GIVEN 8Admin Note: vis given Medications acetaminophen 500 mg oral tablet 2 tablet = 1,000 mg, By Mouth, Every 8 hours, for pain., # 100 tablet, 1 Refills, Maintenance, 05/06/20 17:16:00 EST, [facility]/pharmacy #0488, 162.56, cm, 05/06/20 16:24:00 EST, Height, 76.6, kg, 192:30:00 EST, Dry Weight Start Date: 05/06/20 Status: Ordered Albuterol (Eqv-ProAir HFA) 90 mcg/inh inhalation aerosol 2 puffs, Inhalation, Every 6 hours, PRN NEEDED FOR WHEEZING/SHORTNESS OF BREATH, # 8.5 each, 5 Refills, Maintenance, 04/26/21 9:56:00 EDT, [facility]/pharmacy #0488, 25, 2 puffs Inhalation Every 6 hours,PRN: NEEDED FOR WHEEZING/SHORTNESS OF BREATH, 162.... Start Date: 04/26/21 Status: Ordered Augmentin 875 mg-125 mg oral tablet 1 tablet, By Mouth, Every 12 hours, for 7 days, # 14 tablet, 0 Refills, Acute 08/31/21 0:03:00 EST,08/24/21 0:03:00 EST, Tablet, [facility]/pharmacy #0488, Partial fill upon patient request if the prescription is for a schedule II opioid drug., 167, cm, ... Start Date: 08/24/21 Stop Date: 08/31/21 Status: Ordered Azithromycin 5 Day Dose Pack 250 mg oral tablet See Instructions, 1 pack/packet By Mouth as directed on package labeling, # 6 tablet, 0 Refills, Soft Stop, 04/28/21 9:45:00 EDT, Tablet, [facility]/pharmacy #0488, Partial fill upon patient request if the prescription is for a schedule II opioid drug., 162... Start Date: 04/28/21 Status: Ordered cetirizine 10 mg oral tablet 1 tablet, By Mouth, Daily, PRN NEEDED FOR ALLERGY SYMPTOMS, for 30 days, # 30 tablet, 5 Refills,Physician Stop, [facility], 162.56, cm, 08/23/21 15:32:00 EST, Height Start Date: 08/23/21 Stop Date: 09/22/21 Status: Ordered EpiPen 2-Thomas 0.3 mg injectable kit = 0.3 mg, Intramuscular, Once, # 1 pack/packet, 0 Refills, Soft Stop, 04/22/19 17:32:16 EDT Start Date: 04/22/19 Status: Ordered fluticasone 50 mcg/inh nasal spray See Instructions, USE 1 SPRAY INTO EACH NOSTRIL EVERY MORNING FOR 30 DAYS, # 16 mL, 5 Refills, [facility], 30, USE 1 SPRAY INTO EACH NOSTRIL EVERY MORNING FOR 30 DAYS, 162.56, cm, 04/02/21 13:19:00 EDT, Height Start Date: 04/19/21 Status: Ordered levothyroxine 0.112 mg oral tablet See Instructions, TAKE 1 TABLET BY MOUTH EVERY DAY, # 30 tablet, 2 Refills, 06/14/21 15:32:00 EST, [id number], duplicate rx. original sent 03/03/21. remaining [...] 07/05/06(Confirmed) Active 1F/U by Dr. Gibbs at [facility]. ORal Steroid Trial given. Vital Signs Most recent to oldest [Reference Range]: 1 2 3 Height 167 cm (08/23/21 9:04 PM) 167 cm (08/23/21 6:48 PM) Weight 87.9 kg (08/23/21 9:04 PM) 87.9 kg (08/23/21 6:48 PM) Oxygen Saturation [94-100 %] 99 % (08/24/21 12:34 AM) 98 % (08/23/21 9:04 PM) 99 % (08/23/21 7:34 PM) Pulse Rate [55-90 bpm] 75 bpm (08/24/21 12:34 AM) 81 bpm (08/23/21 9:04 PM) 88 bpm (08/23/21 7:34 PM) Body Mass Index [18.5-24.99] 31.52 *>HHI* (08/23/21 6:48 PM) Blood Pressure [90-138/55-84 mm Hg] 139/91mm Hg *H* (08/24/21 12:34 AM) 144/83mm Hg *H* (08/23/21 9:04 PM) 148/84mm Hg *H* (08/23/21 7:34 PM) Respiratory Rate [16-30 br/min] 18 br/min (08/24/21 12:34 AM) 18 br/min (08/23/21 9:04 PM) 20 br/min (08/23/21 6:48 PM) Temperature [96.8-100.4 DegF] 98.1 DegF (08/23/21 9:04 PM) 98.3 DegF (08/23/21 7:34 PM) 98.3 DegF (08/23/21 6:48 PM) Mode of Delivery (Oxygen) Room air (08/24/21 12:34 AM) Room air (08/23/21 9:04 PM) Room air (08/23/21 7:34 PM) Blood pressure sites Arm, left (08/24/21 12:34 AM) Arm, left (08/23/21 9:04 PM) Arm, right (08/23/21 7:34 PM) Temperature Route Oral (08/23/21 9:04 PM) Oral (08/23/21 7:34 PM) Oral (08/23/21 6:48 PM) Dry Weight 87.9 kg (08/23/21 9:04 PM) 87.9 kg (08/23/21 6:48 PM) Weight Obtained Via Standing scale (08/23/21 6:48 PM) Dry Weight Obtained Via Standing scale (08/23/21 6:48 PM) Social History Social History Type Response Smoking Status Former smoker entered on: 11/13/16 Sex Female
--- OUTSIDE RECORDS SUMMARY | 2022-10-03 14:51 | XMS_ITS | Continuity of Care Document ---
Author Name Unknown Organization [facility] Address [address] [place] [address]- Care Team Providers Care Gas Furnace Installer Name Role Phone Srikanth Narayan MD Primary Care Physician [phone] [facility] 04[facility] - 05/26/21 [facility] [address] [place] [phone]- Allergies, Adverse Reactions, Alerts Substance Reaction Severity [...] 06/30/08 Gi myesha 1Result Comment: [03/27/2017] [facility] [id number] 2Admin Note: [facility] 3Admin Note: VIS GIVEN-DATED 01/02/12 4Admin Note: VIS GIVEN VIS DATE 01/25/11 5Admin Note: vis given vis date 02/09/2010 6Admin Note: VIS GIVEN 7Admin Note: VIS GIVEN 8Admin Note: vis given Medications acetaminophen 500 mg oral tablet 2 tablet = 1,000 mg, By Mouth, Every 8 hours, for pain., # 100 tablet, 1 Refills, Maintenance, 05/06/20 17:16:00 EST, [facility]/pharmacy #0488, 162.56, cm, 05/06/20 16:24:00 EST, Height, 76.6, kg, 192:30:00 EST, Dry Weight Start Date: 05/06/20 Status: Ordered Albuterol (Eqv-ProAir HFA) 90 mcg/inh inhalation aerosol 2 puffs, Inhalation, Every 6 hours, PRN NEEDED FOR WHEEZING/SHORTNESS OF BREATH, # 8.5 each, 5 Refills, Maintenance, 04/26/21 9:56:00 EDT, [facility]/pharmacy #0488, 25, 2 puffs Inhalation Every 6 [...] 5 Refills, Maintenance,02/15/21 8:32:00 EDT, [facility], 162.56, cm, 11/27/20 9:16:00 EDT, Height Start Date: 02/15/21 Stop Date: 03/17/21 Status: Ordered EpiPen 2-Thomas 0.3 mg injectable kit = 0.3 mg, Intramuscular, Once, # 1 pack/packet, 0 Refills, Soft Stop, 04/22/19 17:32:16 EDT Start Date: 10/21/19 Status: Ordered fluticasone 50 mcg/inh nasal spray See Instructions, USE 1 SPRAY INTO EACH NOSTRIL EVERY MORNING FOR 30 DAYS, # 16 mL, 5 Refills, [facility] STORE 70529, 30, USE 1 SPRAY INTO EACH NOSTRIL EVERY MORNING FOR 30 DAYS, 162.56, cm, 04/02/21 13:19:00 EDT, Height Start Date: 04/19/21 Status: Ordered levothyroxine 0.112 mg oral tablet See Instructions, TAKE 1 TABLET BY MOUTH EVERY DAY, # 30 tablet, 5 Refills, [facility], 162.56, cm, 03/03/21 15:20:00 EDT, Height Start [...] 07/05/06(Confirmed) Active 1F/U by Dr. Gibbs at [facility]. ORal Steroid Trial given. Social History Social History Type Response Smoking Status Former smoker entered on: 11/13/16 Sex Female
--- OUTSIDE RECORDS SUMMARY | 2022-10-03 14:51 | XMS_ITS | Continuity of Care Document ---
Author Name Unknown Organization [facility] Address [address] [place] [address]- Care Team Providers Care Tractor Driver Teamster Name Role Phone Srikanth Narayan MD Primary Care Physician [facility] 11[facility]27/20 - 12/27/20 [facility] [address] [place] [address]- Attending Physician: Matt Edge Allergies, Adverse Reactions, [...] 8 06/30/08 Gi myesha 1Result Comment: [03/27/2017] [facility] [id number] 2Admin Note: [facility] 3Admin Note: VIS [...] 10/22/19 14:56:00 EDT, [facility] 162.56, cm, 08/02/19 10:02:00 EST, Height, 76.6, kg,... Start Date: 10/22/19 Status: Ordered acetaminophen 500 mg oral tablet 2 tablet = 1,000 mg, By Mouth, Every 8 hours, for pain., # 100 tablet, 1 Refills, Maintenance, 05/06/20 17:16:00 EST, [facility]/pharmacy #0488, 162.56, cm, 05/06/20 16:24:00 EST, Height, 76.6, kg, 192:30:00 EST, Dry Weight Start Date: 05/06/20 Status: Ordered baclofen 10 mg oral tablet 10 mg, 1, tablet, By Mouth, 3 times a day, for pain., # 15 tablet, Refills 0, Tot. Refills 0, Maintenance, 05/06/20 17:15:00 EST, [facility] to Pharm[facility] Electronically, [facility], 162.56, cm, 05/06/20 16:24:00 EST, Height, 76.6, kg, 08/18/18 2:30:... Start Date: 05/06/20 Stop Date: 05/11/20 Status: Ordered celecoxib 200 mg oral capsule 1 capsule = 200 mg, By Mouth, Daily, BAUTISTA 2 trials., # 14 capsule, 1 Refills, Maintenance, 01/28/20 9:52:00 EDT, Capsule, [facility]/pharmacy #0488, 162.56, cm, 12/31/19 8:29:00 EDT, Height, 76.6, kg, 08/18/18 2:30:00 EST, Dry Weight Start Date: 01/28/20 Stop Date: 02/25/20 Status: Ordered cetirizine 10 mg oral tablet 1 tablet = 10 mg, By Mouth, Daily, PRN for allergy symptoms, # 30 tablet, 2 Refills, Maintenance, 11/02/20 14:46:00 EDT, Tablet, [facility]/pharmacy #0488, 162.56, cm, 08/20/20 13:28:00 EST, Height Start Date: 11/02/20 Stop Date: 01/31/21 Status: Ordered EpiPen 2-Thomas 0.3 mg injectable kit = 0.3 mg, Intramuscular, Once, # 1 pack/packet, 0 Refills, Soft Stop, 04/22/19 17:32:16 EDT Start Date: 04/22/19 Status: Ordered Flonase 50 mcg/inh nasal spray 1 sprays, Nares, Both, Daily in AM, # 16 Gm, 2 Refills, Maintenance, 11/02/20 14:46:00 EDT, [place], [facility]/pharmacy #0488, 1 sprays Nares, Both Daily in AM,x30 days, 162.56, cm, 08/20/20 13:28:00 EST, Height Start Date: 11/02/20 Stop Date: 01/31/21 Status: Ordered levothyroxine 0.112 mg oral tablet 1 tablet = 112 mcg, By Mouth, Daily, # 30 tablet, 5 Refills, Maintenance, 12/14/20 9:01:00 EDT, [facility]/pharmacy #0488, 162.56, cm, 11/27/20 9:16:00 EDT, Height Start Date: 12/14/20 Status: Ordered ProAir HFA 90 mcg/inh inhalation aerosol with adapter 2, puffs, Inhalation, Every 6 hours, PRN, # 8.5 Gm, Refills 11, Tot. Refills 11, Maintenance, 10/22/19 14:57:00 EDT, Aerosol, Route to Pharmacy Electronically, [id number], [facility]/pharmacy #0488, 162.56, cm, 08/02/19 10:02:00 EST... Start Date: 10/22/19 Status: Ordered Vitamin D3 1000 intl units oral capsule 1 capsule = 1,000 International_Units, By Mouth, Daily, # 90 capsule, 1 Refills, Maintenance, 12/16/20 10:54:00 EDT, [facility]/pharmacy #0488, 162.56, cm, 11/27/20 9:16:00 EDT, [...] 07/05/06(Confirmed) Active 1F/U by Dr. Gibbs at [facility]. ORal Steroid Trial given. Social History Social History Type Response Smoking Status Former smoker entered on: 11/13/16 Sex Female
--- OUTSIDE RECORDS SUMMARY | 2022-10-03 14:51 | XMS_ITS | Continuity of Care Document ---
Author Name Unknown Organization [facility] Address [address] [place] [address]- Care Team Providers Care Naval Aircrew[employer] Tactical Helicopter Name Role Phone Srikanth Narayan MD Primary Care Physician [facility]): 06[facility]/21 - 07/10/21 [facility] [address] [place] [phone]- Allergies, Adverse Reactions, Alerts Substance Reaction Severity [...] 8 06/30/08 Gi myesha 1Result Comment: [03/27/2017] [facility] [id number] 2Admin Note: At [facility] 3Admin Note: VIS GIVEN-DATED 01/02/12 4Admin Note: VIS GIVEN VIS DATE 01/25/11 5Admin Note: vis given vis date 02/09/2010 6Admin Note: VIS GIVEN 7Admin Note: VIS GIVEN 8Admin Note: vis given Medications acetaminophen 500 mg oral tablet 2 tablet = 1,000 mg, By Mouth, Every 8 hours, for pain., # 100 tablet, 1 Refills, Maintenance, 05/06/20 17:16:00 EST, [facility]/pharmacy #[id number], 162.56, cm, 05/06/20 16:24:00 EST, Height, 76.6, kg, :30:00 EST, Dry Weight Start Date: 05/06/20 Status: Ordered Albuterol (Eqv-ProAir HFA) 90 mcg/inh inhalation aerosol 2 puffs, Inhalation, Every 6 hours, PRN NEEDED FOR WHEEZING/SHORTNESS OF BREATH, # 8.5 each, 5 Refills, Maintenance, 04/26/21 9:56:00 EDT, [facility]/pharmacy #[id number], 25, 2 puffs Inhalation Every 6 hours,PRN: NEEDED FOR WHEEZING/SHORTNESS OF BREATH, 162.... Start Date: 04/26/21 Status: Ordered Azithromycin 5 Day Dose Pack 250 mg oral tablet See Instructions, 1 pack/packet By Mouth as directed on package labeling, # 6 tablet, 0 Refills, Soft Stop, 04/28/21 9:45:00 EDT, Tablet, [facility]/pharmacy #[id number], Partial fill upon patient request if the prescription is for a schedule II opioid drug., 162... Start Date: 04/28/21 Status: Ordered cetirizine 10 mg oral tablet 1 tablet, By Mouth, Daily, PRN NEEDED FOR ALLERGY SYMPTOMS, # 30 tablet, 5 Refills, Maintenance,02/15/21 8:32:00 EDT, [id number], 162.56, cm, 11/27/20 9:16:00 EDT, Height Start Date: 02/15/21 Stop Date: 03/17/21 Status: Ordered EpiPen 2-Thomas 0.3 mg injectable kit = 0.3 mg, Intramuscular, Once, # 1 pack/packet, 0 Refills, Soft Stop, 04/22/19 17:32:16 EDT Start Date: 04/22/19 Status: Ordered fluticasone 50 mcg/inh nasal spray See Instructions, USE 1 SPRAY INTO EACH NOSTRIL EVERY MORNING FOR 30 DAYS, # 16 mL, 5 Refills, [id number], 30, USE 1 SPRAY INTO EACH NOSTRIL EVERY MORNING FOR 30 DAYS, 162.56, cm, 04/02/21 13:19:00 EDT, Height Start Date: 04/19/21 Status: Ordered levothyroxine 0.112 mg oral tablet See Instructions, TAKE 1 TABLET BY MOUTH EVERY DAY, # 30 tablet, 2 Refills, 06/14/21 15:32:00 EST, [facility]/pharmacy #[id number], duplicate rx. original sent 03/03/21. remaining [...] tablet, 0 Refills, Maintenance, 03/26/21 18:12:00 EDT, [facility]/pharmacy #[id number], Partial fill upon patient request if [...] 1 Refills, Maintenance, 02/24/21 16:06:00 EDT, [id number], Partial fill upon patient request if the [...] 07/05/06(Confirmed) Active 1F/U by Dr. Gibbs at [facility]. ORal Steroid Trial given. Social History Social History Type Response Smoking Status Former smoker entered on: 11/13/16 Sex Female
--- OUTSIDE RECORDS SUMMARY | 2022-10-03 14:52 | XMS_ITS | Continuity of Care Document ---
Author Name Unknown Organization [facility] Address [address] [place] [address]- Care Team Providers Care Pet Feeder Name Role Phone Desmond Hogan Primary Care Physician [facility] Date[facility]s): 08/19/22 - 09/18/22 [facility] [address] [place] [phone]- Allergies, Adverse Reactions, Alerts Substance Reaction Severity [...] 8 06/30/08 Gi myesha 1Result Comment: [03/27/2017] [facility] [id number] 2Admin Note: At [facility] 3Admin Note: VIS GIVEN-DATED 01/02/12 [...] 10/12/21 10:38:00 EDT, [id number] Partial fill upon patient request if the prescription is for a sc... Start Date: 10/12/21 Status: Ordered baclofen 10 mg oral tablet 10 mg, 1, tablet, By Mouth, 2 times a day, PRN, # 30 tablet, Refills 0, Tot. Refills 0, Maintenance, muscle spasm, 04/18/22 10:33:00 EDT, [id number], Partialfill upon patient request if the prescription is fo... Start Date: 04/18/22 Status: Ordered Diflucan 150 mg oral tablet 1 tablet = 150 mg, By Mouth, Once, # 1 tablet, 0 Refills, Soft Stop, 09/05/22 10:23:00 EST, Tablet,[facility]/pharm[facility] #[id number], Partial fill upon patient [...] 0 Refills, Maintenance, 08/19/22 17:00:00 EST, Lotion, [facility]/pharmacy#[id number], Partial fill upon patient request if the pre... Start Date: 08/19/22 Status: Ordered Flovent HFA 110 mcg/inh inhalation aerosol 2 puffs, Inhalation, 2 times a day, rinse mouth and throat after use, # 1 each, 5 Refills, Maintenance, 05/24/22 10:53:00 EST, [facility]/pharmacy #[id number], Partial fill upon patient [...] 0 Refills, Soft Stop, 12/06/21 8:08:00 EDT, [facility]/pharmacy #[id number], Partial fill upon patient request if the prescription is for a schedule II opioiddrug., 167, cm, 11/26/21 13:55:00 EDT, Height, 87.9... Start Date: 12/06/21 Status: Ordered FLUoxetine (Eqv-Prozac) 20 mg oral tablet 1 tablet = 20 mg, By Mouth, Daily, # 30 tablet, 1 Refills, Maintenance, 03/16/22 15:00:00 EDT, Tablet, [facility]/pharmacy #[id number], Partial fill upon patient request if the prescription is for a schedule II opioid drug., 167, cm, 03/16/22 13:56:00 EDT, Height,... Start Date: 03/16/22 Stop Date: 05/15/22 Status: Ordered fluticasone 50 mcg/inh nasal spray See Instructions, USE 1 SPRAY INTO EACH NOSTRIL EVERY MORNING FOR 30 DAYS, # 16 mL, 2 Refills, [id number], 30, USE 1 SPRAY INTO EACH NOSTRIL [...] 0 Refills, Maintenance, 08/24/22 14:46:00 EST, Cream, [facility]/pharmacy #[id number], Partial fill upon patient [...] 5 Refills, Maintenance, 05/17/22 16:56:00 EST, Tablet, [facility]/pharmacy #[id number], Partial fill upon patient request if the prescription is for a schedule IIopioid drug., 167, cm, 04/18/22 10:00:00 EDT, Heigh... Start Date: 05/17/22 Stop Date: 11/13/22 Status: Ordered ProAir HFA 90 mcg/inh inhalation aerosol with adapter 2, puffs, Inhalation, Every 6 hours, PRN, # 8.5 each, Refills 5, Tot. Refills 5, Maintenance, 10/11/21 10:23:00 EDT, Route to Pharmacy Electronically, [id number], [facility]/pharmacy #[id number], 167, cm, 09/15/21 15:38:00 [...] tablet, 0 Refills, Maintenance, 03/26/21 18:12:00 EDT, [facility]/pharmacy #[id number], Partial fill upon patient [...] Gm, 1 Refills, Maintenance, 02/24/21 16:06:00 EDT, [facility]/pharmacy #[id number], Partial fill upon patient [...] Confirmed Active 1F/U by Dr. Gibbs at [facility]. ORal Steroid Trial given. Social History Social History Type Response Smoking Status Never smoker entered on: 08/02/13 Sex Female Patient Care team information Care Team Personnel Name: Desmond Hogan Position: [facility] PCO Associate Professional Member Role: PCP Address: Address: [address] [place] [id number] Name: Jamel Flor RN Position: [facility] ED RN W/OE and Tasks Member Role: Primary Care Nurse Name: Candi Eisenberg RN Position: [facility] RN Member Role: Primary Care Nurse Name: Gilmar Mckeon RN Position: [facility] SN RN Member Role: Primary Care Nurse Name: Catalina Reece RN Position: [facility] OB RN Member Role: Primary Care Nurse Name: Kashif CAROLINA, Elizabeth Knox Position: [facility] Onco RN Member Role: Primary Care Nurse Care Team Related Persons Name: ALEJO PIERRE Address: [address] [address]
--- OUTSIDE RECORDS SUMMARY | 2022-10-03 14:52 | XMS_ITS | Continuity of Care Document ---
Author Name Unknown Organization [facility] Address [address] [place] [address]- Care Team Providers Care Membership Sales Manager Name Role Phone Srikanth Narayan MD Primary Care Physician [facility]): 09/06/21 - 10/06/21 [facility] [address] [place] [phone]- Allergies, Adverse Reactions, Alerts Substance Reaction Severity [...] myesha 1Result Comment: [03/27/2017] [facility] [id number] 2Admin Note: At [facility] 3Admin Note: VIS GIVEN-DATED 01/02/12 4Admin Note: VIS GIVEN VIS DATE 01/25/11 5Admin Note: vis given vis date 02/09/2010 6Admin Note: VIS GIVEN 7Admin Note: VIS GIVEN 8Admin Note: vis given Medications acetaminophen 500 mg oral tablet 2 tablet = 1,000 mg, By Mouth, Every 8 hours, for pain., # 100 tablet, 1 Refills, Maintenance, 05/06/20 17:16:00 EST, [facility]/pharmacy #[id number], 162.56, cm, 05/06/20 16:24:00 EST, Height, 76.6, kg, :30:00 EST, Dry Weight Start Date: 05/06/20 Status: Ordered Albuterol (Eqv-ProAir HFA) 90 mcg/inh inhalation aerosol 2 puffs, Inhalation, Every 6 hours, PRN NEEDED FOR WHEEZING/SHORTNESS OF BREATH, # 8.5 each, 5 Refills, Maintenance, 04/26/21 9:56:00 EDT, [facility]/pharmacy #[id number], 25, 2 puffs Inhalation Every 6 hours,PRN: NEEDED FOR WHEEZING/SHORTNESS OF BREATH, 162.... Start Date: 04/26/21 Status: Ordered Azithromycin 5 Day Dose Pack 250 mg oral tablet See Instructions, 1 pack/packet By Mouth as directed on package labeling, # 6 tablet, 0 Refills, Soft Stop, 04/28/21 9:45:00 EDT, Tablet, [facility]/pharmacy #[id number], Partial fill upon patient request [...] 30 DAYS, # 16 mL, 5 Refills, [facility] 044[facility], 30, USE 1 SPRAY INTO EACH NOSTRIL EVERY MORNING FOR 30 DAYS, 162.56, cm, 04/02/21 13:19:00 EDT, Height Start Date: 04/19/21 Status: Ordered levothyroxine 0.112 mg oral tablet 1 tablet, By Mouth, Daily, # 90 tablet, 3 Refills, Maintenance, 09/21/21 19:55:00 EDT, [facility]/pharmacy#[id number], 167, cm, 09/15/21 15:38:00 EDT, Height, [...] 09/15/21 16:33:00 EDT, Route to Pharmacy Electronically, [facility]/pharmacy #[id number], Partial fill upon hunter... Start [...] Gm, 1 Refills, Maintenance, 02/24/21 16:06:00 EDT, [facility]/pharmacy #[id number], Partial fill upon patient request if the [...] 07/05/06(Confirmed) Active 1F/U by Dr. Gibbs at [facility]. ORal Steroid Trial given. Social History Social History Type Response Smoking Status Former smoker entered on: 11/13/16 Sex Female
--- OUTSIDE RECORDS SUMMARY | 2022-10-03 14:52 | XMS_ITS | Continuity of Care Document ---
Author Name Unknown Organization [facility] Address [address] [place] [address]- Care Team Providers Care Piano Maker Name Role Phone Srikanth Narayan MD Primary Care Physician [phone] Encounter [facility] Date(s): 07/04/19 - 07/14/[address] [address]- [facility] Attending Physician: Matt Edge Admitting Physician: AdmtrMatt [...] 1Result Comment: [03/27/2017] [facility] [id number] 2Admin Note: At [facility] 3Admin Note: VIS GIVEN-DATED 01/02/12 [...] 10:58:31 EDT, Aerosol, Route to Pharmacy Electronically, [id number], [facility]/pharmacy #[id number] Start Date: 01/17/18 Status: Ordered [...] 07/05/06(Confirmed) Active 1F/U by Dr. Gibbs at [facility]. ORal Steroid Trial given. Social History Social History Type Response Smoking Status Former smoker entered on: 11/13/16 Sex Female
--- OUTSIDE RECORDS SUMMARY | 2022-10-03 14:52 | XMS_ITS | Continuity of Care Document ---
Author Name Unknown Organization [facility] Address [address] [place] [address]- Care Team Providers Care Duco Polisher Name Role Phone Desmond Hogan Primary Care Physician En[place] [facility] Date(s): 05/12/22 - 06/11/22 [facility] [address] [place] [phone]- Allergies, Adverse Reactions, Alerts Substance Reaction Severity [...] 8 06/30/08 Gi myesha 1Result Comment: [03/27/2017] [facility] [id number] 2Admin Note: [facility] 3Admin Note: VIS [...] 10/12/21 10:38:00 EDT, Route to Pharmacy Electronically, [facility]/pharmacy #[id number], Partial fill upon patient request if the prescription is for a sc... Start Date: 10/12/21 Status: Ordered baclofen 10 mg oral tablet 10 mg, 1, tablet, By Mouth, 2 times a day, PRN, # 30 tablet, Refills 0, Tot. Refills 0, Maintenance, muscle spasm, 04/18/22 10:33:00 EDT, [id number], Partialfill upon patient request [...] each, 5 Refills, Maintenance, 05/24/22 10:53:00 EST, [facility]/pharmacy #[id number], Partial fill upon patient request if the prescription is for a schedule II opioid drug., 167, cm, 05/24/... Start Date: 05/24/22 Status: Ordered fluconazole 150 mg oral tablet 1 tablet = 150 mg, By Mouth, Once, Repeat dose if still having symptoms in 72 hours, # 2 tablet, 0 Refills, Soft Stop, 11/26/21 14:03:00 EDT, Tablet, [facility]/pharmacy #[id number], Partial fill upon patient request if the prescription is for a schedule II opioid... Start Date: 11/26/21 Status: Ordered fluconazole 150 mg oral tablet 1 tablet = 150 mg, By Mouth, Once, Acute, # 1 tablet, 0 Refills, Soft Stop, 12/06/21 8:08:00 EDT, [facility]/pharmacy #[id number], Partial fill upon patient request if the prescription is for a schedule II opioiddrug., 167, cm, 11/26/21 13:55:00 EDT, Height, 87.9... Start Date: 12/06/21 Status: Ordered FLUoxetine (Eqv-Prozac) 20 mg oral tablet 1 tablet = 20 mg, By Mouth, Daily, # 30 tablet, 1 Refills, Maintenance, 03/16/22 15:00:00 EDT, Tablet, [facility]/pharmacy #[id number], Partial fill upon patient request if the prescription is for a schedule II opioid drug., 167, cm, 03/16/22 13:56:00 EDT, Height,... Start Date: 03/16/22 Stop Date: 05/15/22 Status: Ordered fluticasone 50 mcg/inh nasal spray See Instructions, USE 1 SPRAY INTO EACH NOSTRIL EVERY MORNING FOR 30 DAYS, # 16 mL, 2 Refills, [facility] [id number], 30, USE 1 SPRAY INTO EACH NOSTRIL EVERY MORNING FOR 30 DAYS, 167, cm, 11/04/21 10:58:00EDT, Height, 87.9, kg, 08/23/21 21:04:00 EST, Dry W... Start Date: 11/17/21 Status: Ordered levothyroxine 125 mcg (0.125 mg) oral tablet 1 tablet = 125 mcg, By Mouth, Daily, # 30 tablet, 5 Refills, Maintenance, 05/17/22 16:56:00 EST, Tablet, [facility]/pharmacy #[id number], Partial fill upon patient request if the prescription is for a schedule IIopioid drug., 167, cm, 04/18/22 10:00:00 EDT, Heigh... Start Date: 05/17/22 Stop Date: 11/13/22 Status: Ordered ProAir HFA 90 mcg/inh inhalation aerosol with adapter 2, puffs, Inhalation, Every 6 hours, PRN, # 8.5 each, Refills 5, Tot. Refills 5, Maintenance, 10/11/21 10:23:00 EDT, Route to Pharmacy Electronically, [id number], [facility]/pharmacy #[id number], 167, cm, 09/15/21 15:38:00 EDT, Height, [...] Refills, Maintenance, 03/26/21 18:12:00 EDT, [facility]/pharmacy #[id number], Partial fill upon patient request if [...] Refills, Maintenance, 02/24/21 16:06:00 EDT, [facility]/pharmacy #[id number], Partial fill upon patient request if [...] Confirmed Active 1F/U by Dr. Gibbs at [facility]. ORal Steroid Trial given. Social History Social History Type Response Smoking Status Former smoker entered on: 11/13/16 Sex Female Patient Care team information Care Team Personnel Name: Desmond Hogan Position: [facility] PCO Associate Professional Member Role: PCP Address: Address: [address] [place] [address]- Name: Espinoza Alamo RN Position: [facility] RN Member Role: Primary Care Nurse Name: Jamel Flor RN Position: [facility] RN Member Role: Primary Care Nurse Name: Candi Eisenberg RN Position: [facility] RN Member Role: Primary Care Nurse Name: Gilmar Mckeon RN Position: [facility] SN RN Member Role: Primary Care Nurse Name: Catalina Reece RN Position: [facility] OB RN Member Role: Primary Care Nurse Name: Elizabeth Rowland RN Position: [facility] Onco RN Member Role: Primary Care Nurse Care Team Related Persons Name: ALEJO PIERRE Address: home [address] [place] [id number]
--- OUTSIDE RECORDS SUMMARY | 2022-10-03 14:52 | XMS_ITS | Continuity of Care Document ---
Author Name Unknown Organization [facility] Address [address] [place] [address]- Care Team Providers Care Water Pumper Name Role Phone Desmond Hogan Primary Care Physician [facility]): 08/03/22 - 09/02/22 [facility] [address] [place] [address]- Allergies, Adverse Reactions, Alerts Substance Reaction Severity [...] [03/27/2017] [facility]NOTE 2[facility] [id number] 2Admin Note: At [facility] 3Admin Note: VIS GIVEN-DATED 01/02/12 [...] 10/12/21 10:38:00 EDT, [id number] fill upon patient request if the prescription is for a sc... Start Date: 10/12/21 Status: Ordered baclofen 10 mg oral tablet 10 mg, 1, tablet, By Mouth, 2 times a day, PRN, # 30 tablet, Refills 0, Tot. Refills 0, Maintenance, muscle spasm, 04/18/22 10:33:00 EDT, [id number], Partial[facility] upon patient request if the [...] 0 Refills, Maintenance, 08/19/22 17:00:00 EST, Lotion, [facility]/pharmacy#0488, Partial fill upon patient request if the pre... Start Date: 08/19/22 Status: Ordered Flovent HFA 110 mcg/inh inhalation aerosol 2 puffs, Inhalation, 2 times a day, rinse mouth and throat after use, # 1 each, 5 Refills, Maintenance, 05/24/22 10:53:00 EST, [facility]/pharmacy #[id number], Partial fill upon patient [...] 0 Refills, Soft Stop, 12/06/21 8:08:00 EDT, [id number], Partial fill upon patient request if the prescription is for a schedule II opioiddrug., 167, cm, 11/26/21 13:55:00 EDT, Height, 87.9... Start Date: 12/06/21 Status: Ordered FLUoxetine (Eqv-Prozac) 20 mg oral tablet 1 tablet = 20 mg, By Mouth, Daily, # 30 tablet, 1 Refills, Maintenance, 03/16/22 15:00:00 EDT, Tablet, [facility]/pharmacy #[id number], Partial fill upon patient request if the prescription is for a schedule II opioid drug., 167, cm, 03/16/22 13:56:00 EDT, Height,... Start Date: 03/16/22 Stop Date: 05/15/22 Status: Ordered fluticasone 50 mcg/inh nasal spray See Instructions, USE 1 SPRAY INTO EACH NOSTRIL EVERY MORNING FOR 30 DAYS, # 16 mL, 2 Refills, [facility], 30, USE 1 SPRAY INTO EACH NOSTRIL [...] 0 Refills, Maintenance, 08/24/22 14:46:00 EST, Cream, [id number], Partial fill upon patient request [...] 5 Refills, Maintenance, 05/17/22 16:56:00 EST, Tablet, [facility]/pharmacy #[id number], Partial fill upon patient request if the prescription is for a schedule IIopioid drug., 167, cm, 04/18/22 10:00:00 EDT, Heigh... Start Date: 05/17/22 Stop Date: 11/13/22 Status: Ordered ProAir HFA 90 mcg/inh inhalation aerosol with adapter 2, puffs, Inhalation, Every 6 hours, PRN, # 8.5 each, Refills 5, Tot. Refills 5, Maintenance, 10/11/21 10:23:00 EDT, Route to Pharmacy Electronically, [id number], [facility]/pharmacy #[id number], 167, cm, 09/15/21 15:38:00 EDT, [...] tablet, 0 Refills, Maintenance, 03/26/21 18:12:00 EDT, [facility]/pharmacy #[id number], Partial fill upon patient request if the prescription is fora schedule II opioid drug., 162.56, cm, 03/26/21 18... Start Date: 03/26/21 Status: Ordered Vitamin D3 1000 intl units oral capsule 1 capsule = 1,000 International_Units, By Mouth, Daily, # 90 capsule, 1 Refills, Maintenance, 12/16/20 10:54:00 EDT, [facility]/pharmacy #[id number], 162.56, cm, 11/27/20 9:16:00 EDT, Height Start Date: 12/16/20 Stop Date: 06/14/21 Status: Ordered Voltaren 1% topical gel = 2 Gm, Topically, 4 times a day, PRN Pain , Moderate, resent, # 100 Gm, 1 Refills, Maintenance, 02/24/21 16:06:00 EDT, [facility]/pharmacy #[id number], Partial fill upon patient [...] Active Swelling in left armpit Confirmed Active Obese class I Confirmed Active Polyarthritis 1 Confirmed Active Reflux, Laryngeal Confirmed Active Severe major depression Confirmed Active LEFT Shoulder joint pain, 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 Sched for Sx 07/05/06 Confirmed Active 1F/U by Dr. Gibbs at [facility]. ORal Steroid Trial given. Social History Social History Type Response Smoking Status Never smoker entered on: 08/02/13 Sex Female Patient Care team information Care Team Personnel Name: Desmond Hogan Position: [facility] PCO Associate Professional Member Role: PCP Address: Address: [address] [place] [address] Name: Basia CAROLINA, Jamel Gutierrez Position: [facility] RN Member Role: Primary Care Nurse Name: Candi Eisenberg RN Position: [facility] RN Member Role: Primary Care Nurse Name: Gilmar Mckeon RN Position: [facility] SN RN Member Role: Primary Care Nurse Name: Catalina Reece RN Position: [facility] OB RN Member Role: Primary Care Nurse Name: Elizabeth Rowland RN Position: [facility] Onco RN Member Role: Primary Care Nurse Care Team Related Persons Name: ALEJO PIERRE Address: home [address] [place] [address]
[2022-10-03 15:50] LABS: Appearance Urine Clear; Color Urine Yellow; Glucose Urine UA Negative (Negative); Leukocyte Esterase Urine Negative (Negative); Nitrite Urine Negative (Negative); PH 8.5 (5.0-9.0); UMIC TRIGGER UACC YES; Urine Blood Small (1+) (Negative); Urine Ketones 15 mg/dL (Negative); Urine Protein Trace mg/dL (Neg-Trace)
[2022-10-03 15:53] LABS: UPreg QC Valid YES; Urine Pregnancy NEGATIVE (NEGATIVE)
[2022-10-03 15:54] LABS: Bacteria Urine None Seen (None Seen); Hyaline Casts Urine 0-2 /LPF (0-2); Squamous Epithelial Cell Urine 0-2 /HPF (0-2); WBC Urine 0-5 /HPF (0-5)
[2022-10-03 16:00] VITALS: BP 144/96; PULSE 96; RESP 18; O2SAT 100
[2022-10-03] MEDS: iohexoL 350 MG/ML 100 ML INFUS..BTL IV (16:13)
[2022-10-03] MEDS: Acetaminophen 325 MG TABLET 975 MG PO (16:28)
[2022-10-03 16:34] VITALS: TEMP 37.2
== END 2022-10-03 17:38 | disposition home or self-care (01) ==
PROVIDERS: Physician Assistant; Emergency Provider Emergency Medicine; PCP Physician Assistant Medical
DX: R11.2 Nausea with vomiting, unspecified (principal); R51.9 Headache, unspecified; R19.7 Diarrhea, unspecified; R10.9 Unspecified abdominal pain; Z20.822 Contact with and (suspected) exposure to COVID-19; Z20.828 Contact with and (suspected) exposure to other viral communicable diseases; Z79.899 Other long term (current) drug therapy
CPT/HCPCS: 74177; 80048; 80076; 81001; 81025; 83690; 83735; 85025; 87635; 96361; 96374; 96375; 99284; J2270; J2405; Q9967

== ENCOUNTER 2022-10-06 19:43 | Emergency (ER) | payer OTHER, SELFPAY ==
--- NOTE | ~2022-10-06 | US_ITS ---
EXAMINATION: US RETROPERITONEAL LIMITED (RENAL ONLY) CLINICAL INFORMATION: Flank pain. COMPARISON: CT abdomen pelvis 10/03/2022 TECHNIQUE: Real-time imaging of the kidneys. FINDINGS: RIGHT KIDNEY: 8.5 x 4.6 x 4.5 cm (SAG x AP x TRV). Right kidney is asymmetrically atrophic with lobular renal contour suggesting parenchymal cortical scarring. Renal cortical thickness is normal. No calculi or focal parenchymal lesions. No hydronephrosis. LEFT KIDNEY: 13.0 x 5.6 x 5.2 cm (SAG x AP x TRV). The kidney is normal in size, contour, and echogenicity. Renal cortical thickness is normal. No calculi or focal parenchymal lesions. No hydronephrosis. US/US renal BI IMPRESSION: No hydronephrosis or nephrolithiasis. Right kidney is mildly atrophic with lobular renal contour suggesting parenchymal cortical scarring..
--- NOTE | ~2022-10-06 | CT_ITS ---
EXAMINATION: CT ABDOMEN AND PELVIS WITH CONTRAST CLINICAL INFORMATION: Right flank pain COMPARISON: 10/03/2022 TECHNIQUE: Multidetector volumetric images were obtained from the superior aspect of the liver through the pubic symphysis following administration 85 mL of Omnipaque 350 intravenous contrast. Sagittal and coronal reformatted images were obtained on the technologist's workstation. Oral contrast: No This CT examination was performed using dose optimization techniques as appropriate, variously including the following: *Automated exposure control *Adjustment of mA and/or kV according to patient size (this includes techniques or standardized protocols for targeted exams where dose is matched to indication/reason for exam; i.e. extremities or head) *Use of iterative reconstruction technique DLP: 671 mGy-cm FINDINGS: LUNG BASES: The visualized lung bases are unremarkable. LIVER, GALLBLADDER, AND BILIARY TREE: The liver is normal in size, shape, and attenuation. Stable scattered tiny hypodensities, too small to characterize but statistically transportation services representative of benign cyst cysts or biliary hamartomas. No suspicious hepatic lesions. No biliary ductal dilatation is present. Gallbladder is normal. PANCREAS: Unremarkable. SPLEEN: Unremarkable. ADRENAL GLANDS: Unremarkable. KIDNEYS AND URETERS: Kidneys enhance symmetrically. Multifocal right renal cortical scarring redemonstrated, most notably in the upper pole where there is accompanying simple cyst. No follow-up imaging recommended. No urinary calculi or hydronephrosis. BLADDER: Unremarkable. GASTROINTESTINAL TRACT: No bowel related abnormalities. The appendix is normal. ABDOMINAL WALL: No significant hernia is appreciated. LYMPH NODES: Normal. VASCULAR: Unremarkable. PELVIC VISCERA: IUD present within the uterus. No adnexal abnormalities. OSSEOUS STRUCTURES: No acute or suspicious osseous abnormalities. CT/CT abdomen pelvis w IV con IMPRESSION: * No acute findings within the abdomen or pelvis to explain the patient's symptomatology. * Chronic findings as above.
[2022-10-06 20:01] VITALS: BP 150/101; PULSE 84; RESP 20; TEMP 36.9; O2SAT 96; BMI 30.9
--- NOTE | 2022-10-06 20:03 | ED.ABDPAIN ---
HPI - Abdominal Pain General Chief Complaint: General Medical <MINDY Woods Last Filed: 10/06/22 20:07> Stated Complaint: right flank pain,congested cough asthma <MINDY Woods Last Filed: 10/06/22 20:07> Time Seen by Provider: 10/06/22 23:14 <MINDY Woods Last Filed: 10/06/22 20:07> Source: patient <MINDY Menchaca Last Filed: 10/07/22 02:11> Mode of arrival: ambulatory <MINDY Menchaca Last Filed: 10/07/22 02:11> Limitations: no limitations <MINDY Menchaca Last Filed: 10/07/22 02:11> History of Present Illness HPI narrative: This is a 46-year-old female presenting to the emergency department with fatigue, malaise, myalgias, right-sided flank pain, nausea, vomiting, headache x5 days. Patient tells me that her headache is frontal in nature, throbbing, she tells me she suffers from migraines and this feels like her typical migraine, she has some associated photophobia, no vision changes, dizziness, weakness or associated trauma. Patient tells me she feels like she may have had fevers however she is unsure. Right-sided flank pain is intermittent, sharp in nature she feels like some things pushing into her kidney. She reports bilious vomit without blood. Tells me she was seen here for similar symptoms on October 03 and was discharged home with Kelly. Denies chest pain, shortness of breath, hematochezia, melena. <MINDY Menchaca Last Filed: 10/07/22 02:11> Related Data Home Medications: Previous Rx's Medication Instructions Recorded ondansetron 4 mg disintegrating 4 mg PO Q8H PRN nausea and 10/03/22 tablet vomiting #20 tabs ketorolac 10 mg tablet 10 mg PO Q6H PRN pain 5 days #20 10/07/22 tabs metoclopramide HCl 10 mg tablet 10 mg PO Q6H PRN nausea and 10/07/22 (Reglan) vomiting #14 tabs morphine 15 mg immediate release 15 mg PO Q4-6H PRN pain #10 tabs 10/07/22 tablet nitrofurantoin 100 mg PO BID 7 days #14 caps 10/07/22 monohydrate/macrocrystals 100 mg capsule (Macrobid) <MINDY Woods - Last Filed: 10/06/22 20:07> Allergies/Adverse Reactions: Allergies Allergy/AdvReac Type Severity Reaction Status Date / Time gluten Allergy Unknown Verified 10/03/22 13:17 lamotrigine [From Lamictal] Allergy Swelling Verified 10/03/22 13:16 Penicillins [PCN] Allergy Swelling Verified 10/03/22 13:17 <MINDY Woods - Last Filed: 10/06/22 20:07> Review of Systems Review of Systems Constitutional : No Weight loss, + Fever, + Chills, + Fatigue, + Malaise ENT/Mouth : No sore throat, No Rhinorrhea Eyes: No Eye Pain, No Swelling, No Redness Cardiovascular : No Chest Pain, No SOB, No Dyspnea on Exertion, No Orthopnea, No Edema, No Palpitations Respiratory : No Cough, No Sputum, No Wheezing Gastrointestinal : + Nausea, + Vomiting, No Diarrhea, No Constipation, No abdominal Pain, No Hematochezia, No Melena Genitourinary : No Dysuria, No Urinary Frequency, No Hematuria, Musculoskeletal : No joint pain, No Myalgias, No Joint Swelling, + r. flank paim Skin : No Skin Lesions, No rash Neuro : No Weakness, No Numbness, No Dizziness, + Headache Psych : No Anxiety/Panic, No Depression All other systems reviewed and are negative <MINDY Menchaca - Last Filed: 10/07/22 02:11> Yes all other systems are reviewed and are negative <MINDY Menchaca - Last Filed: 10/07/22 02:11> [facility] Past Medical History Attestation statement: The following information was validated with the patient. <MINDY Menchaca Last Filed: 10/07/22 02:11> Source: old records reviewed and nursing notes reviewed <MINDY Menchaca Last Filed: 10/07/22 02:11> Social History Social History: Social History Alcohol intake: never Smoked in Last 30 Days: No Use of substances other than those prescribed or required for medical reasons: No Advance Directives: No Advance Directives Information Provided: Yes Patient : No <MINDY Woods - Last Filed: 10/06/22 20:07> Physical Exam ED Vital Signs: Vital Signs - 24 hr 10/06/22 20:01 10/07/22 04:04 Temperature 98.4 F 98.4 F Pulse Rate 84 67 Respiratory Rate 20 17 Blood Pressure 150/101 H 119/72 Pulse Oximetry 96 94 Oxygen Delivery Method Room Air Room Air BMI result Body Mass Index 30.9 <MINDY Woods - Last Filed: 10/06/22 20:07> Vital Signs - 24 hr 10/06/22 20:01 10/07/22 04:04 Temperature 98.4 F 98.4 F Pulse Rate 84 67 Respiratory Rate 20 17 Blood Pressure 150/101 H 119/72 Pulse Oximetry 96 94 Oxygen Delivery Method Room Air Room Air BMI result Body Mass Index 30.9 vss <MINDY Menchaca - Last Filed: 10/07/22 02:11> Vital Signs - 24 hr 10/06/22 20:01 10/07/22 04:04 Temperature 98.4 F 98.4 F Pulse Rate 84 67 Respiratory Rate 20 17 Blood Pressure 150/101 H 119/72 Pulse Oximetry 96 94 Oxygen Delivery Method Room Air Room Air BMI result Body Mass Index 30.9 <John Back MD - Last Filed: 10/07/22 05:16> Appearance: Alert.? Oriented X3.? No acute distress.? Head: Normocephalic, atraumatic, no step-offs or deformities Eyes: Pupils equal, round and reactive to light.? CVS: Normal heart rate and rhythm.? Pulses normal.? Respiratory: No respiratory distress.? Breath sounds normal.? Abdomen: Soft and nontender.? Skin: Skin warm and dry.? Normal skin color.? Normal skin turgor.? Extremities: No lower extremity edema.? No calf ttp. 5/5 strength to bilateral upper and lower extremities Back: Right CVA tenderness Neuro: Oriented X 3.? No motor deficit.? No sensory deficit. CN 2-12 intact <MINDY Menchaca - Last Filed: 10/07/22 02:11> Course Course Course Narrative: RME - 46 yo female presents to the ER for evaluation of right sided flank/kidney pain, right sided rib pain, subjective fevers/chills, nausea, vomiting, headaches and not feeling well for the last 5 days. Seen here on 10/[address] scan. WBC 23K. Discharged with zofran. Reports history of kidney stones and abnormal kidney function on the right, follows w/ nephro. Had blood in her urine 10/03. Will repeat labs, UA and get renal U/S <MINDY Woods - Last Filed: 10/06/22 20:07> Reevaluation(s) Reevaluation #1: CBC with leukocytosis 14.4 could be reactive secondary to nausea and vomiting, chemistry with no acute findings requiring intervention. UA with trace bacteria this could be contamination however to patient's history will treat with antibiotics for home. Renal ultrasound with no hydronephrosis bilaterally or nephrolithiasis. Right kidney is mildly atrophic with lobular renal contour suggesting parenchymal cortical scarring. I did reorder CT of the abdomen pelvis as patient does have positive right-sided CVA tenderness will obtain with contrast to rule out pyelo <MINDY Menchaca - Last Filed: 10/07/22 02:11> Time: 00:22 <MINDY Menchaca Last Filed: 10/07/22 02:11> Reevaluation #2: Sign out to Dr. Back pending CT of the abdomen pelvis and re-evaluation <MINDY Menchaca - Last Filed: 10/07/22 02:11> Time: 02:11 <MINDY Menchaca Last Filed: 10/07/22 02:11> Reevaluation #3: CT scan of the abdomen pelvis did not reveal a clear cause for the patient's pain there were several incidental findings that are not significant. The patient was having significant pain despite the above treatment. I ordered morphine 4 mg IV. The patient will be treated with Toradol 10 mg every 6 hours as needed for pain, Tylenol 1000 mg every 6 hours as needed for pain and for pain not relieved by these medications she was prescribed morphine 15 mg every 4-6 hours. Patient was also advised to take Reglan 10 mg with 50 mg of Benadryl every 6 hours as needed for nausea and vomiting. Patient will also be treated Macrobid 100 mg every 12 hours for 7 days for possible urinary tract infection. She was given printed and verbal instructions and discharged home. <John Back MD - Last Filed: 10/07/22 05:16> Time: 05:14 <John Back MD - Last Filed: 10/07/22 05:16> Medical Decision Making Medical Decision Making [facility] Narrative: 0000 46-year-old female presents with headache, fatigue, malaise, right-sided flank pain, nausea, vomiting and subjective fevers and chills x5 days Physical exam with right-sided CVA tenderness. Neuro nonfocal. Cerebellar intact. No other acute findings on exam. NIH stroke scale 0. History and physical exam concerning for possible pyelonephritis. Will rule out UTI versus cystitis. Other differentials include musculoskeletal discomfort versus viral illness. Unlikely intracranial hemorrhage, stroke, posterior stroke, meningitis. No meningeal signs. Upon chart review it is noted that patient was seen here on 10/03/2022 for similar symptoms at that time she was reporting nausea, vomiting, diarrhea and headache that started that day as well as upper abdominal pain. Patient was discharged home with a clinical impression of acute nausea with nonbilious vomiting was discharged home with Zofran. Plan labs, imaging, urine. <MINDY Menchaca - Last Filed: 10/07/22 02:11> Differential Diagnosis Differential Diagnoses: The differential diagnosis associated with the presentation includes <MINDY Menchaca Last Filed: 10/07/22 02:11> History and physical exam concerning for possible pyelonephritis. Will rule out UTI versus cystitis. Other differentials include musculoskeletal discomfort versus viral illness. Unlikely intracranial hemorrhage, stroke, posterior stroke, meningitis. No meningeal signs. <MINDY Menchaca Last Filed: 10/07/22 02:11> Admission/Observation Consideration of admission/observation: Escalation of care including admission/observation considered <MINDY Menchaca Last Filed: 10/07/22 02:11> Lab Data [facility] Lab Attestation statement: I reviewed the patient's lab results. <MINDY Menchaca Last Filed: 10/07/22 02:11> Result Diagrams: 10/06/22 20:26 10/06/22 20:26 <MINDY Woods - Last Filed: 10/06/22 20:07> Labs: Lab Results 10/06/22 10/06/22 10/06/22 Range/Units 20:26 20:26 20:26 WBC 14.4 H (4.8-10.8) X10*3/uL RBC 5.00 (4.20-5.50) X10*6/uL Hgb 14.3 (12.0-16.0) g/dl Hct 41.6 (37.0-47.0) % MCV 83.2 (80.0-98.0) fL MCH 28.6 (27.0-33.0) pg MCHC 34.4 (31.0-35.0) g/dl RDW 12.7 (11.0-16.0) % Plt Count 280 D (160-400) X10*3/uL MPV 9.4 (9.4-12.3) fL Immature Gran % (Auto) 0.5 H (0.0-0.4) % Neut % (Auto) 79.0 H (45-73) % Lymph % (Auto) 14.7 L (20-40) % [place] % (Auto) 5.1 (2-11) % Eos % (Auto) 0.4 (0-4) % Baso % (Auto) 0.3 (0-2) % Lymph # (Auto) 2.1 (1.2-4.9) X10*3/uL [place] # (Auto) 0.7 (0.1-1.2) X10*3/uL Eos # (Auto) 0.1 (0.0-0.4) X10*3/uL Baso # (Auto) 0.0 (0.0-0.2) X10*3/uL Abs Immat Gran (auto) 0.07 H (0.00-0.03) X10*3/uL Absolute Neuts (auto) 11.4 H (2.0-8.3) x10*3/uL Absolute Nucleated RBC 0.000 (0.0-0.012) X10*3/uL Nucleated RBC % (auto) 0.0 (0.0-0.2) /100WBC Sodium 140 (135-145) mmol/L Potassium 4.3 (3.3-5.1) mmol/L Chloride 102 (96-108) mmol/L Carbon Dioxide 28 (22-29) mmol/L Anion Gap 14 (12-20) BUN 9 (9-16) mg/dL Creatinine 0.78 (0.5-1.4) mg/dL Estim Creat Clear Calc 94.1 Estimated GFR > 60 Random Glucose 94 (60-115) mg/dL Calcium 8.8 (8.4-10.2) mg/dL Magnesium 2.1 (1.6-2.6) mg/dL Total Bilirubin 0.7 (0.0-1.0) mg/dL Direct Bilirubin 0.2 (0.0-0.5) mg/dL AST 15 (5-31) U/L ALT 8 (0-31) U/L Alkaline Phosphatase 80 (39-117) U/L Total Protein 7.5 (6.5-8.0) g/dL Albumin 4.0 (3.5-5.0) g/dL Lipase 21 (8-78) U/L Urine Color Yellow Urine Appearance Cloudy Urine pH 5.5 (5.0-9.0) Ur Specific Adrian 1.020 (1.005-1.025) Urine Protein 30 (1+) H (Neg-Trace) mg/dL Urine Glucose (UA) Negative (Negative) mg/dL Urine Ketones Trace (Negative) mg/dL Urine Blood Small (1+) H (Negative) Urine Nitrite Negative (Negative) Ur Leukocyte Esterase Small (1+) H (Negative) Urine RBC 11-20 H (0-2) /HPF Urine WBC 0-5 (0-5) /HPF Ur Squamous Epith Cells 11-20 (0-2) /HPF Urine Bacteria Trace (None Seen) Hyaline Casts 0-2 (0-2) /LPF <MINDY Woods - Last Filed: 10/06/22 20:07> Lab Results 10/06/22 10/06/22 10/06/22 Range/Units 20:26 20:26 20:26 WBC 14.4 H (4.8-10.8) X10*3/uL RBC 5.00 (4.20-5.50) X10*6/uL Hgb 14.3 (12.0-16.0) g/dl Hct 41.6 (37.0-47.0) % MCV 83.2 (80.0-98.0) fL MCH 28.6 (27.0-33.0) pg MCHC 34.4 (31.0-35.0) g/dl RDW 12.7 (11.0-16.0) % Plt Count 280 D (160-400) X10*3/uL MPV 9.4 (9.4-12.3) fL Immature Gran % (Auto) 0.5 H (0.0-0.4) % Neut % (Auto) 79.0 H (45-73) % Lymph % (Auto) 14.7 L (20-40) % [place] % (Auto) 5.1 (2-11) % Eos % (Auto) 0.4 (0-4) % Baso % (Auto) 0.3 (0-2) % Lymph # (Auto) 2.1 (1.2-4.9) X10*3/uL [place] # (Auto) 0.7 (0.1-1.2) X10*3/uL Eos # (Auto) 0.1 (0.0-0.4) X10*3/uL Baso # (Auto) 0.0 (0.0-0.2) X10*3/uL Abs Immat Gran (auto) 0.07 H (0.00-0.03) X10*3/uL Absolute Neuts (auto) 11.4 H (2.0-8.3) x10*3/uL Absolute Nucleated RBC 0.000 (0.0-0.012) X10*3/uL Nucleated RBC % (auto) 0.0 (0.0-0.2) /100WBC Sodium 140 (135-145) mmol/L Potassium 4.3 (3.3-5.1) mmol/L Chloride 102 (96-108) mmol/L Carbon Dioxide 28 (22-29) mmol/L Anion Gap 14 (12-20) BUN 9 (9-16) mg/dL Creatinine 0.78 (0.5-1.4) mg/dL Estim Creat Clear Calc 94.1 Estimated GFR > 60 Random Glucose 94 (60-115) mg/dL Calcium 8.8 (8.4-10.2) mg/dL Magnesium 2.1 (1.6-2.6) mg/dL Total Bilirubin 0.7 (0.0-1.0) mg/dL Direct Bilirubin 0.2 (0.0-0.5) mg/dL AST 15 (5-31) U/L ALT 8 (0-31) U/L Alkaline Phosphatase 80 (39-117) U/L Total Protein 7.5 (6.5-8.0) g/dL Albumin 4.0 (3.5-5.0) g/dL Lipase 21 (8-78) U/L Urine Color Yellow Urine Appearance Cloudy Urine pH 5.5 (5.0-9.0) Ur Specific Adrian 1.020 (1.005-1.025) Urine Protein 30 (1+) H (Neg-Trace) mg/dL Urine Glucose (UA) Negative (Negative) mg/dL Urine Ketones Trace (Negative) mg/dL Urine Blood Small (1+) H (Negative) Urine Nitrite Negative (Negative) Ur Leukocyte Esterase Small (1+) H (Negative) Urine RBC 11-20 H (0-2) /HPF Urine WBC 0-5 (0-5) /HPF Ur Squamous Epith Cells 11-20 (0-2) /HPF Urine Bacteria Trace (None Seen) Hyaline Casts 0-2 (0-2) /LPF <MINDY Menchaca - Last Filed: 10/07/22 02:11> Lab Results 10/06/22 10/06/22 10/06/22 Range/Units 20:26 20:26 20:26 WBC 14.4 H (4.8-10.8) X10*3/uL RBC 5.00 (4.20-5.50) X10*6/uL Hgb 14.3 (12.0-16.0) g/dl Hct 41.6 (37.0-47.0) % MCV 83.2 (80.0-98.0) fL MCH 28.6 (27.0-33.0) pg MCHC 34.4 (31.0-35.0) g/dl RDW 12.7 (11.0-16.0) % Plt Count 280 D (160-400) X10*3/uL MPV 9.4 (9.4-12.3) fL Immature Gran % (Auto) 0.5 H (0.0-0.4) % Neut % (Auto) 79.0 H (45-73) % Lymph % (Auto) 14.7 L (20-40) % [place] % (Auto) 5.1 (2-11) % Eos % (Auto) 0.4 (0-4) % Baso % (Auto) 0.3 (0-2) % Lymph # (Auto) 2.1 (1.2-4.9) X10*3/uL [place] # (Auto) 0.7 (0.1-1.2) X10*3/uL Eos # (Auto) 0.1 (0.0-0.4) X10*3/uL Baso # (Auto) 0.0 (0.0-0.2) X10*3/uL Abs Immat Gran (auto) 0.07 H (0.00-0.03) X10*3/uL Absolute Neuts (auto) 11.4 H (2.0-8.3) x10*3/uL Absolute Nucleated RBC 0.000 (0.0-0.012) X10*3/uL Nucleated RBC % (auto) 0.0 (0.0-0.2) /100WBC Sodium 140 (135-145) mmol/L Potassium 4.3 (3.3-5.1) mmol/L Chloride 102 (96-108) mmol/L Carbon Dioxide 28 (22-29) mmol/L Anion Gap 14 (12-20) BUN 9 (9-16) mg/dL Creatinine 0.78 (0.5-1.4) mg/dL Estim Creat Clear Calc 94.1 Estimated GFR > 60 Random Glucose 94 (60-115) mg/dL Calcium 8.8 (8.4-10.2) mg/dL Magnesium 2.1 (1.6-2.6) mg/dL Total Bilirubin 0.7 (0.0-1.0) mg/dL Direct Bilirubin 0.2 (0.0-0.5) mg/dL AST 15 (5-31) U/L ALT 8 (0-31) U/L Alkaline Phosphatase 80 (39-117) U/L Total Protein 7.5 (6.5-8.0) g/dL Albumin 4.0 (3.5-5.0) g/dL Lipase 21 (8-78) U/L Urine Color Yellow Urine Appearance Cloudy Urine pH 5.5 (5.0-9.0) Ur Specific [place] 1.020 (1.005-1.025) Urine Protein 30 (1+) H (Neg-Trace) mg/dL Urine Glucose (UA) Negative (Negative) mg/dL Urine Ketones Trace (Negative) mg/dL Urine Blood Small (1+) H (Negative) Urine Nitrite Negative (Negative) Ur Leukocyte Esterase Small (1+) H (Negative) Urine RBC 11-20 H (0-2) /HPF Urine WBC 0-5 (0-5) /HPF Ur Squamous Epith Cells 11-20 (0-2) /HPF Urine Bacteria Trace (None Seen) Hyaline Casts 0-2 (0-2) /LPF <John Back MD - Last Filed: 10/07/22 05:16> Independent Interpretation I performed an independent interpretation of an: Ultrasound ( US/US renal BI IMPRESSION: No hydronephrosis or nephrolithiasis. Right kidney is mildly atrophic with lobular renal contour suggesting parenchymal cortical scarring..) <MINDY Menchaca - Last Filed: 10/07/22 02:11> Radiology Impression Discussion of test interpretation with radiology: I have reviewed the radiologist's reading. <MINDY Menchaca - Last Filed: 10/07/22 02:11> Radiologist Impression: EXAMINATION: CT ABDOMEN AND PELVIS WITH CONTRAST CLINICAL INFORMATION: Right flank pain COMPARISON: 10/03/2022 TECHNIQUE: Multidetector volumetric images were obtained from the superior aspect of the liver through the pubic symphysis following administration 85 mL of Omnipaque 350 intravenous contrast. Sagittal and coronal reformatted images were obtained on the technologist's workstation. Oral contrast: No This CT examination was performed using dose optimization techniques as appropriate, variously including the following: *Automated exposure control *Adjustment of mA and/or kV according to patient size (this includes techniques or standardized protocols for targeted exams where dose is matched to indication/reason for exam; i.e. extremities or head) *Use of iterative reconstruction technique DLP: 671 mGy-cm FINDINGS: LUNG BASES: The visualized lung bases are unremarkable. LIVER, GALLBLADDER, AND BILIARY TREE: The liver is normal in size, shape, and attenuation. Stable scattered tiny hypodensities, too small to characterize but statistically traveling representative of benign cyst cysts or biliary hamartomas. No suspicious hepatic lesions. No biliary ductal dilatation is present. Gallbladder is normal. PANCREAS: Unremarkable. SPLEEN: Unremarkable. ADRENAL GLANDS: Unremarkable. KIDNEYS AND URETERS: Kidneys enhance symmetrically. Multifocal right renal cortical scarring redemonstrated, most notably in the upper pole where there is accompanying simple cyst. No follow-up imaging recommended. No urinary calculi or hydronephrosis. BLADDER: Unremarkable. GASTROINTESTINAL TRACT: No bowel related abnormalities. The appendix is normal. ABDOMINAL WALL: No significant hernia is appreciated. LYMPH NODES: Normal. VASCULAR: Unremarkable. PELVIC VISCERA: IUD present within the uterus. No adnexal abnormalities. OSSEOUS STRUCTURES: No acute or suspicious osseous abnormalities. CT/CT abdomen pelvis w IV con IMPRESSION: * No acute findings within the abdomen or pelvis to explain the patient's symptomatology. * Chronic findings as above. Dictated By:Baljit Patel MDSigned By:<Electronically signed by Baljit Patel MD in [place]>10/07/22 0230 <John Back MD - Last Filed: 10/07/22 05:16> External Record Review External record reviewed: Inpatient record, Office record, Outpatient record, Prior outpatient labs, Prior outpatient radiology, Primary care record and Outside ED record <MINDY Menchaca - Last Filed: 10/07/22 02:11> Prescription Management I considered prescription management with: Pain Medication <MINDY Menchaca - Last Filed: 10/07/22 02:11> Core Measures AMI core measures followed: Yes <MINDY Menchaca - Last Filed: 10/07/22 02:11> Measure exclusions: not indicated <MINDY Menchaca - Last Filed: 10/07/22 02:11> Medications Administered Discontinued Medications Generic Name Dose Route Start Last Admin Trade Name Freq PRN Reason Stop Dose Admin Diphenhydramine HCl 50 mg 10/07/22 00:10 10/07/22 00:53 Diphenhydramine Hcl 25 Mg Capsule PO 10/07/22 00:11 50 mg ONCE ONE Administration Sodium Chloride 1,000 mls @ 999 mls/hr 10/07/22 00:30 10/07/22 00:52 Ns IV 10/07/22 01:30 999 mls/hr .Q1H1M IVAN Administration Iohexol 85 ml 10/07/22 01:21 10/07/22 01:22 Iohexol 350 Mg/Ml 100 Ml Infus..Btl IV 10/07/22 01:22 85 ml ONCE ONE Administration Ketorolac Tromethamine 30 mg 10/07/22 00:10 10/07/22 00:53 Ketorolac Tromethamine 30 Mg/Ml Vial IM 10/07/22 00:11 30 mg ONCE ONE Administration Metoclopramide HCl 10 mg 10/07/22 00:10 10/07/22 00:53 Metoclopramide Hcl 10 Mg Tablet PO 10/07/22 00:11 10 mg ONCE ONE Administration <MINDY Woods - Last Filed: 10/06/22 20:07> Medications Administered Discontinued Medications Generic Name Dose Route Start Last Admin Trade Name Freq PRN Reason Stop Dose Admin Diphenhydramine HCl 50 mg 10/07/22 00:10 10/07/22 00:53 Diphenhydramine Hcl 25 Mg Capsule PO 10/07/22 00:11 50 mg ONCE ONE Administration Sodium Chloride 1,000 mls @ 999 mls/hr 10/07/22 00:30 10/07/22 00:52 Ns IV 10/07/22 01:30 999 mls/hr .Q1H1M IVAN Administration Iohexol 85 ml 10/07/22 01:21 10/07/22 01:22 Iohexol 350 Mg/Ml 100 Ml Infus..Btl IV 10/07/22 01:22 85 ml ONCE ONE Administration Ketorolac Tromethamine 30 mg 10/07/22 00:10 10/07/22 00:53 Ketorolac Tromethamine 30 Mg/Ml Vial IM 10/07/22 00:11 30 mg ONCE ONE Administration Metoclopramide HCl 10 mg 10/07/22 00:10 10/07/22 00:53 Metoclopramide Hcl 10 Mg Tablet PO 10/07/22 00:11 10 mg ONCE ONE Administration <MINDY Menchaca - Last Filed: 10/07/22 02:11> Medications Administered Discontinued Medications Generic Name Dose Route Start Last Admin Trade Name Josué PRN Reason Stop Dose Admin Diphenhydramine HCl 50 mg 10/07/22 00:10 10/07/22 00:53 Diphenhydramine Hcl 25 Mg Capsule PO 10/07/22 00:11 50 mg ONCE ONE Administration Sodium Chloride 1,000 mls @ 999 mls/hr 10/07/22 00:30 10/07/22 00:52 Ns IV 10/07/22 01:30 999 mls/hr .Q1H1M IVAN Administration Iohexol 85 ml 10/07/22 01:21 10/07/22 01:22 Iohexol 350 Mg/Ml 100 Ml Infus..Btl IV 10/07/22 01:22 85 ml ONCE ONE Administration Ketorolac Tromethamine 30 mg 10/07/22 00:10 10/07/22 00:53 Ketorolac Tromethamine 30 Mg/Ml Vial IM 10/07/22 00:11 30 mg ONCE ONE Administration Metoclopramide HCl 10 mg 10/07/22 00:10 10/07/22 00:53 Metoclopramide Hcl 10 Mg Tablet PO 10/07/22 00:11 10 mg ONCE ONE Administration <John Back MD - Last Filed: 10/07/22 05:16> Critical Care Time Critical Care Time Critical Care Time: No <MINDY Menchaca - Last Filed: 10/07/22 02:11> Discharge Plan Discharge Clinical Impression: Right flank pain, Headache, Nausea & vomiting, UTI (urinary tract infection) <MINDY Woods - Last Filed: 10/06/22 20:07> Patient Disposition: Home, Self-Care <MINDY Woods - Last Filed: 10/06/22 20:07> Instructions: Acute Headache (DC), Acute Nausea and Vomiting (ED), Flank Pain (ED) <MINDY Woods - Last Filed: 10/06/22 20:07> Additional Instructions: Take Reglan (metoclopramide) in 10 mg, 1 pill every 6 hours When you take regular in also take Benadryl 25 mg, 2 pills every 6 hours After you take these medications, lie down in a dark quiet room and try to fall asleep. These medications will make you sleepy, do not drive or work after taking these medications. Take Toradol 10 mg every 6 hours as needed for pain. Please take this as prescribed do not take this with ibuprofen, or other NSAIDs, do not mix this with alcohol. Side effects of this medication including increased risk for bleeding and possible kidney injury. Take Tylenol (acetaminophen) 500 mg pills, 2 pills every 6 hours as needed for pain. For pain not relieved by Toradol or Tylenol take morphine 15 mg pills, 1 pill every 4 hours as needed for pain. This medication will make you sleepy, do not drive or work while taking this medication. Morphine is a narcotic medication and can be addicting. If you are concerned about addiction you can ask the pharmacist for less pills or do not get this prescription filled. Take Macrobid 100 mg pills, 1 pill twice a day for 7 days for possible urinary tract infection. Follow-up with your doctor in 2 days. Please return to the emergency department if your symptoms get worse or if you develop any symptoms that are concerning to you. <MINDY Woods - Last Filed: 10/06/22 20:07> Prescriptions: New nitrofurantoin monohyd/m-cryst [Macrobid] 100 mg capsule 100 mg PO BID 7 Days Qty: 14 0RF Rx Instructions: must administer with a meal/food ketorolac 10 mg tablet 10 mg PO Q6H PRN (Reason: pain) 5 Days Qty: 20 0RF morphine 15 mg tablet 15 mg PO Q4-6H PRN (Reason: pain) Qty: 10 0RF Rx Instructions: The patient may ask for partial fill; Partial Fill upon patient request. metoclopramide HCl [Reglan] 10 mg tablet 10 mg PO Q6H PRN (Reason: nausea and vomiting) Qty: 14 0RF No Action ondansetron 4 mg tablet,disintegrating 4 mg PO Q8H PRN (Reason: nausea and vomiting) Qty: 20 0RF <MINDY Woods - Last Filed: 10/06/22 20:07> Referrals: ED Physician,Generic [Physician] - 2 days <MINDY Woods Last Filed: 10/06/22 20:07>
[2022-10-06 20:30] LABS: MANUAL DIFF FLAG NO
[2022-10-06 20:32] LABS: Basophils Percent Auto 0.3 % (0-2); Eosinophils Absolute Auto 0.1 X10*3/uL (0.0-0.4); Eosinophils Percent Auto 0.4 % (0-4); Hematocrit 41.6 % (37.0-47.0); Hemoglobin 14.3 g/dl (12.0-16.0); Imm Gran Abs Auto 0.07 X10*3/uL (0.00-0.03); Imm Gran Pct Auto 0.5 % (0.0-0.4); Lymphocytes Absolute Auto 2.1 X10*3/uL (1.2-4.9); Lymphocytes Percent Auto 14.7 % (20-40); Mean Corpuscular HGB Conc 34.4 g/dl (31.0-35.0); Mean Corpuscular Hemoglobin 28.6 pg (27.0-33.0); Mean Corpuscular Volume 83.2 fL (80.0-98.0); Mean Platelet Volume 9.4 fL (9.4-12.3); Monocytes Absolute Auto 0.7 X10*3/uL (0.1-1.2); Monocytes Percent Auto 5.1 % (2-11); Neutrophils Absolute Auto 11.4 x10*3/uL (2.0-8.3); Platelet Count 280 X10*3/uL (160-400); Red Cell Distribution Width 12.7 % (11.0-16.0); White Blood Count 14.4 X10*3/uL (4.8-10.8)
[2022-10-06 20:33] LABS: Appearance Urine Cloudy; Color Urine Yellow; Glucose Urine UA Negative (Negative); Leukocyte Esterase Urine Small (1+) (Negative); Nitrite Urine Negative (Negative); PH 5.5 (5.0-9.0); UMIC TRIGGER UACC YES; Urine Blood Small (1+) (Negative); Urine Ketones Trace mg/dL (Negative); Urine Protein 30 (1+) mg/dL (Neg-Trace)
[2022-10-06 20:46] LABS: Alanine Aminotransferase 8 U/L (0-31); Alkaline Phosphatase 80 U/L (39-117); Anion Gap 14 (12-20); Aspartate Amino Transferase 15 U/L (5-31); Bilirubin Direct 0.2 mg/dL (0.0-0.5); Bilirubin Total 0.7 mg/dL (0.0-1.0); Blood Urea Nitrogen 9 mg/dL (9-16); Calcium 8.8 mg/dL (8.4-10.2); Carbon Dioxide 28 mmol/L (22-29); Chloride 102 mmol/L (96-108); Creatinine Clr Calc Pharmacy 94.1; Estimated Glomerular Filt Rate > 60; Glucose Random 94 mg/dL (60-115); Magnesium 2.1 mg/dL (1.6-2.6); Potassium 4.3 mmol/L (3.3-5.1); Sodium 140 mmol/L (135-145); Total Protein 7.5 g/dL (6.5-8.0)
[2022-10-06 21:25] LABS: Bacteria Urine Trace (None Seen); Hyaline Casts Urine 0-2 /LPF (0-2); UACC Culture Trigger YES; WBC Urine 0-5 /HPF (0-5)
[2022-10-07 00:38] LABS: Lipase 21 U/L (8-78)
[2022-10-07] MEDS: 0.9 % Sodium Chloride 1,000 ML 999 ML IV (00:52)
[2022-10-07] MEDS: diphenhydrAMINE HCL 25 MG CAPSULE 50 MG PO (00:53)
[2022-10-07] MEDS: Metoclopramide HCl 10 MG TABLET PO (00:53)
[2022-10-07] MEDS: Ketorolac Tromethamine 30 MG/ML VIAL IM (00:53)
[2022-10-07] MEDS: iohexoL 350 MG/ML 100 ML INFUS..BTL 85 ML IV (01:22)
[2022-10-07 04:04] VITALS: BP 119/72; PULSE 67; RESP 17; TEMP 36.9; O2SAT 94
[2022-10-07] MEDS: Morphine Sulfate 4 MG/ML CARTRIDGE IVPUSH (05:17)
== END 2022-10-07 05:46 | disposition home or self-care (01) ==
PROVIDERS: Physician Assistant; Emergency Provider Emergency Medicine; PCP Physician Assistant Medical
DX: N39.0 Urinary tract infection, site not specified (principal); R10.9 Unspecified abdominal pain; R51.9 Headache, unspecified; R50.9 Fever, unspecified; Z79.899 Other long term (current) drug therapy
CPT/HCPCS: 36415; 74177; 76775; 80048; 80076; 81001; 83690; 83735; 85025; 87086; 96372; 96374; 99284; 99285; J1885; J2270; Q9967

== ENCOUNTER 2024-07-15 13:07 | Inpatient (IN) | payer OTHER, SELFPAY ==
[2024-07-15] VITALS (7 sets, daily range): BP systolic 115–173; BP diastolic 44–93; PULSE 79–154; RESP 16–20; TEMP 36.8; O2SAT 95–99; BMI 27.4
--- NOTE | 2024-07-15 13:16 | ECG_ITS ---
Test Reason : qtc check Blood Pressure : */* mmHG Vent. Rate : 66 BPM Atrial Rate : 66 BPM P-R Int : 100 ms QRS Dur : 90 ms QT Int : 410 ms P-R-T Axes : 49 82 29 degrees QTcB Int : 429 ms Sinus rhythm with sinus arrhythmia with short TN Otherwise normal ECG No previous ECGs available Referred By: Shayla Madrid Electronically Signed By: Jose Arciniega
--- NOTE | 2024-07-15 13:17 | ED.PSYCH ---
HPI - Psych General Chief Complaint: Altered Mental Status Stated Complaint: crisis Time Seen by Provider: 07/15/24 13:15 Source: patient, family and old records reviewed Mode of arrival: other Limitations: other History of Present Illness ED Provider: TEJAL SAMS Narrative: 48 yo female hx is very limited she was brought in by and family for abnormal behaviors, paranoia and repeating herself since last Monday. I see she has a hx of thyroid disease on levothyroxine 112mcg daily, allerges and she takes pregabalin. On arrival to ED refused to come in and is mumbling to herself thrashing and agitated. We had to sedate her to get her back to room and in restraints. No trauma reported. tells me same thing happened in 2014 with psychiatric admission but not more history than that he notes the episode in 2014 was much worse MD complaint: other (unusual behaviors, agitation) Onset (ago): day(s) (6) Duration: getting worse History of same: Yes Relieving factors: none Exacerbating factors: none Associated psychiatric symptoms: none Associated symptoms: denies other symptoms Treatments prior to arrival: none Related Data Previous Rx's ?Medication ?Instructions ?Recorded ondansetron 4 mg disintegrating 4 mg PO Q8H PRN nausea and 10/03/22 tablet vomiting #20 tabs ketorolac 10 mg tablet 10 mg PO Q6H PRN pain 5 days #20 10/07/22 tabs metoclopramide HCl 10 mg tablet 10 mg PO Q6H PRN nausea and 10/07/22 (Reglan) vomiting #14 tabs morphine 15 mg immediate release 15 mg PO Q4-6H PRN pain #10 tabs 10/07/22 tablet nitrofurantoin 100 mg PO BID 7 days #14 caps 10/07/22 monohydrate/macrocrystals 100 mg capsule (Macrobid) Allergies Allergy/AdvReac Type Severity Reaction Status Date / Time gluten Allergy Unknown Verified 07/15/24 13:27 lamotrigine [From Lamictal] Allergy Swelling Verified 07/15/24 13:27 Penicillins [PCN] Allergy Swelling Verified 07/15/24 13:27 Review of Systems Review of Systems: ROS unable to be obtained due to altered mental status/agitation PMFSH Past Medical History Attestation statement: The following information was validated with the patient. Source: old records reviewed Medical History Thyroid disease Social History Social History (Updated 07/15/24 @ 13:48 by Shayla Madrid DO) Alcohol intake: never Patient Tobacco Use Status: Tobacco use Unknown Advance Directives: No Advance Directives Information Provided: Yes Do you have a plan to hurt others: No Plan Physical Exam Vital Signs: Vital Signs: Last Vital Signs Temp 98.3 F 07/15/24 13:35 Pulse 79 07/15/24 15:44 Resp 16 07/15/24 15:44 BP 139/44 L 07/15/24 15:44 Pulse Ox 99 07/15/24 15:44 O2 Del Method Room Air 07/15/24 15:44 BMI result Body Mass Index 27.4 Appearance: Alert confused mumbling to herself, pacing moderate acute distress. Eyes: Pupils equal, round and reactive to light. ENT: Pharynx normal. Neck: Normal inspection. Neck supple. no goiter noted CVS: tachycardia heart rate and rhythm. Pulses normal. Respiratory: No respiratory distress. Breath sounds normal. Abdomen: Soft and non-tender. Skin: Skin warm and dry. Normal skin color. Normal skin turgor. Extremities: No lower extremity edema. No calf ttp Neuro: moving all extremities, confused, cannot participate in neuro exam Course Course Course Narrative: sleepy now, HR down to 101 Reevaluation(s) Reevaluation #1: medically cleared awake alert once K infused can go to pod refuses CT head she is coherent can refuse Reevaluation #2: signing S12 at this time Reevaluation #3: refusing potassium in all forms right now Additional Reevaluation(s): K up medically cleared Medications Administered Generic Name Dose Route Start Last Admin Trade Name Freq PRN Reason Stop Dose Admin Sodium Chloride 1,000 mls @ 100 mls/hr 07/15/24 16:15 07/15/24 17:59 Ns IVCONT 0 mls/hr .Q10H IVAN Infusion Discontinued Medications Generic Name Dose Route Start Last Admin Trade Name Freq PRN Reason Stop Dose Admin Potassium Chloride 10 meq in 100 mls @ 100 mls/hr 07/15/24 14:45 07/15/24 17:22 Potassium Chloride/H20 IV 07/15/24 18:44 Not Given Q1H IVAN Lorazepam 2 mg 07/15/24 13:16 07/15/24 13:23 Lorazepam 2 Mg/Ml Vial IM 07/15/24 13:17 2 mg STAT STA Administration Lorazepam 2 mg 07/15/24 13:47 07/15/24 14:50 Lorazepam 2 Mg/Ml Vial IM 07/15/24 13:48 Not Given STAT STA Olanzapine 10 mg 07/15/24 13:16 07/15/24 13:24 Olanzapine 10 Mg Vial IM 07/15/24 13:17 10 mg STAT STA Administration Potassium Chloride 40 meq 07/15/24 16:53 07/15/24 17:46 Potassium Chloride Er 20 Meq Tab.Er.Prt PO 07/15/24 16:54 Not Given ONCE ONE Medical Decision Making Medical Decision Making MDM Narrative: 48 yo female with reported mental health issues, thyroid disease here with change in mental status x 6 days at this time she will not comply with treatment and there are concerns for possible acute medical issues such as thyroid storm, will obtain labs, EKG, CT head, TSH, she is in restraints and received IM medications. Differential Diagnosis Differential Diagnoses: The differential diagnosis associated with the presentation includes toxic or metabolic encephalopathy, psychosis, intracranial mass Admission/Observation Consideration of admission/observation: Escalation of care including admission/observation considered physician observation started at 410pm pending CARE team and K Consult Healthcare Provider Management of the patient was discussed with: Behavioral Health Provider Lab Data [facility] Lab Attestation statement: I reviewed the patient's lab results. 07/15/24 13:53 07/15/24 14:43 Labs: Lab Results 07/15/24 07/15/24 07/15/24 Range/Units 13:33 13:53 14:43 WBC 8.8 (4.8-10.8) X10*3/uL RBC 5.38 (4.20-5.50) X10*6/uL Hgb 15.3 (12.0-16.0) g/dl Hct 43.3 (37.0-47.0) % MCV 80.5 (80.0-98.0) fL MCH 28.4 (27.0-33.0) pg MCHC 35.3 H (31.0-35.0) g/dl RDW 13.1 (11.0-16.0) % Plt Count 294 (160-400) X10*3/uL MPV 9.8 (9.4-12.3) fL Immature Gran % (Auto) 0.3 (0.0-0.4) % Neut % (Auto) 79.3 H (45-73) % Lymph % (Auto) 13.3 L (20-40) % [place] % (Auto) 6.5 (2-11) % Eos % (Auto) 0.1 (0-4) % Baso % (Auto) 0.5 (0-2) % Lymph # (Auto) 1.2 (1.2-4.9) X10*3/uL [place] # (Auto) 0.6 (0.1-1.2) X10*3/uL Eos # (Auto) 0.0 (0.0-0.4) X10*3/uL Baso # (Auto) 0.0 (0.0-0.2) X10*3/uL Abs Immat Gran (auto) 0.03 (0.00-0.03) X10*3/uL Absolute Neuts (auto) 7.0 (2.0-8.3) x10*3/uL Absolute Nucleated RBC 0.000 (0.0-0.012) X10*3/uL Nucleated RBC % (auto) 0.0 (0.0-0.2) /100WBC Sodium 138 (135-145) mmol/L Potassium 2.9 L* 3.3 (3.3-5.1) mmol/L Chloride 101 (96-108) mmol/L Carbon Dioxide 25 (22-29) mmol/L Anion Gap 15 (12-20) BUN 11 (9-16) mg/dL Creatinine 0.79 (0.5-1.4) mg/dL Estim Creat Clear Calc 92.3 Estimated GFR > 60 POC Glucose 149 H (60-115) mg/dL Random Glucose 144 H (60-115) mg/dL Calcium 9.7 D (8.4-10.2) mg/dL Magnesium 1.8 (1.6-2.6) mg/dL Total Bilirubin 0.7 (0.0-1.0) mg/dL Direct Bilirubin 0.2 (0.0-0.5) mg/dL AST 35 H (5-31) U/L ALT 14 (0-31) U/L Alkaline Phosphatase 84 (39-117) U/L Ammonia 36 (13-55) umol/L Total Protein 7.8 (6.5-8.0) g/dL Albumin 4.2 (3.5-5.0) g/dL Lipase 25 (8-78) U/L TSH 1.43 (0.32-4.0) uIU/mL Urine Color Urine Appearance Urine pH (5.0-9.0) Ur Specific [place] (1.005-1.025) Urine Protein (Neg-Trace) mg/dL Urine Glucose (UA) (Negative) mg/dL Urine Ketones (Negative) mg/dL Urine Blood (Negative) Urine Nitrite (Negative) Ur Leukocyte Esterase (Negative) Urine RBC (0-2) /HPF Urine WBC (0-5) /HPF Ur Squamous Epith Cells (0-2) /HPF Urine Bacteria (None Seen) Hyaline Casts (0-2) /LPF Urine Opiates Screen (Not Detect) Ur Buprenorphine Scrn (Not Detect) ng/mL Ur Oxycodone Screen (Not Detect) ng/mL Urine Methadone Screen (Not Detect) ng/mL Urine Fentanyl Screen (Not Detect) Ur Barbiturates Screen (Not Detect) Ur Phencyclidine Scrn (Not Detect) Ur Amphetamines Screen (Not Detect) U Benzodiazepines Scrn (Not Detect) Urine Cocaine Screen (Not Detect) U Marijuana (THC) Screen (Not Detect) Ethyl Alcohol < 10 mg/dL Influenza Type A (PCR) NEGATIVE (Negative) Influenza Type B (PCR) NEGATIVE (Negative) RSV RNA Qual (PCR) NEGATIVE (Negative) SARS-CoV-2 RNA (RT-PCR) NEGATIVE (Negative) 07/15/24 Range/Units 16:04 WBC (4.8-10.8) X10*3/uL RBC (4.20-5.50) X10*6/uL Hgb (12.0-16.0) g/dl Hct (37.0-47.0) % MCV (80.0-98.0) fL MCH (27.0-33.0) pg MCHC (31.0-35.0) g/dl RDW (11.0-16.0) % Plt Count (160-400) X10*3/uL MPV (9.4-12.3) fL Immature Gran % (Auto) (0.0-0.4) % Neut % (Auto) (45-73) % Lymph % (Auto) (20-40) % [place] % (Auto) (2-11) % Eos % (Auto) (0-4) % Baso % (Auto) (0-2) % Lymph # (Auto) (1.2-4.9) X10*3/uL [place] # (Auto) (0.1-1.2) X10*3/uL Eos # (Auto) (0.0-0.4) X10*3/uL Baso # (Auto) (0.0-0.2) X10*3/uL Abs Immat Gran (auto) (0.00-0.03) X10*3/uL Absolute Neuts (auto) (2.0-8.3) x10*3/uL Absolute Nucleated RBC (0.0-0.012) X10*3/uL Nucleated RBC % (auto) (0.0-0.2) /100WBC Sodium (135-145) mmol/L Potassium (3.3-5.1) mmol/L Chloride (96-108) mmol/L Carbon Dioxide (22-29) mmol/L Anion Gap (12-20) BUN (9-16) mg/dL Creatinine (0.5-1.4) mg/dL Estim Creat Clear Calc Estimated GFR POC Glucose (60-115) mg/dL Random Glucose (60-115) mg/dL Calcium (8.4-10.2) mg/dL Magnesium (1.6-2.6) mg/dL Total Bilirubin (0.0-1.0) mg/dL Direct Bilirubin (0.0-0.5) mg/dL AST (5-31) U/L ALT (0-31) U/L Alkaline Phosphatase (39-117) U/L Ammonia (13-55) umol/L Total Protein (6.5-8.0) g/dL Albumin (3.5-5.0) g/dL Lipase (8-78) U/L TSH (0.32-4.0) uIU/mL Urine Color Yellow Urine Appearance Turbid Urine pH 7.0 (5.0-9.0) Ur Specific [place] <= 1.005 (1.005-1.025) Urine Protein Trace (Neg-Trace) mg/dL Urine Glucose (UA) Negative (Negative) mg/dL Urine Ketones Trace (Negative) mg/dL Urine Blood Trace H (Negative) Urine Nitrite Negative (Negative) Ur Leukocyte Esterase Large (3+) H (Negative) Urine RBC 0-2 (0-2) /HPF Urine WBC >50 H (0-5) /HPF Ur Squamous Epith Cells >20 (0-2) /HPF Urine Bacteria 4+ (None Seen) Hyaline Casts 0-2 (0-2) /LPF Urine Opiates Screen Not Detected (Not Detect) Ur Buprenorphine Scrn Not Detected (Not Detect) ng/mL Ur Oxycodone Screen Not Detected (Not Detect) ng/mL Urine Methadone Screen Not Detected (Not Detect) ng/mL Urine Fentanyl Screen Not Detected (Not Detect) Ur Barbiturates Screen Not Detected (Not Detect) Ur Phencyclidine Scrn Not Detected (Not Detect) Ur Amphetamines Screen Not Detected (Not Detect) U Benzodiazepines Scrn Not Detected (Not Detect) Urine Cocaine Screen Not Detected (Not Detect) U Marijuana (THC) Screen POSITIVE H (Not Detect) Ethyl Alcohol mg/dL Influenza Type A (PCR) (Negative) Influenza Type B (PCR) (Negative) RSV RNA Qual (PCR) (Negative) SARS-CoV-2 RNA (RT-PCR) (Negative) Independent Interpretation I performed an independent interpretation of an: EKG and CT Scan Interpretation: Rate: Rhythm: [place]: Normal P waves. Normal SEKOU. Normal QRS complex. ST T wave : qTC: prior studies: The study has been interpreted contemporaneously by me. . Radiology Impression Discussion of test interpretation with radiology: I have reviewed the radiologist's reading. Independent Historian Clinical information obtained from an independent historian. History obtained from or confirmed by: Spouse External Record Review External record reviewed: Outpatient record Critical Care Time Critical Care Time Critical Care Time: Yes Total Critical Care Time: 60 Attestation: IM medications ordered for psychiatric emergency, IV potassium I attest to this time spent taking care of the patient Discharge Plan Discharge Clinical Impression: Acute hypokalemia Psychosis Qualifiers: Psychosis type: unspecified psychosis type Qualified Code(s): F29 - Unspecified psychosis not due to a substance or known physiological condition Patient Disposition: Still a Patient Prescriptions: No Action nitrofurantoin monohyd/m-cryst [Macrobid] 100 mg capsule 100 mg PO BID 7 Days Qty: 14 0RF Rx Instructions: must administer with a meal/food ketorolac 10 mg tablet 10 mg PO Q6H PRN (Reason: pain) 5 Days Qty: 20 0RF morphine 15 mg tablet 15 mg PO Q4-6H PRN (Reason: pain) Qty: 10 0RF Rx Instructions: The patient may ask for partial fill; Partial Fill upon patient request. metoclopramide HCl [Reglan] 10 mg tablet 10 mg PO Q6H PRN (Reason: nausea and vomiting) Qty: 14 0RF ondansetron 4 mg tablet,disintegrating 4 mg PO Q8H PRN (Reason: nausea and vomiting) Qty: 20 0RF Print Language: Nepali
[2024-07-15] MEDS: LORazepam 2 MG/ML VIAL IM (13:23)
[2024-07-15] MEDS: OLANZapine 10 MG VIAL IM (13:24)
--- NOTE | 2024-07-15 13:29 | PC.NURSE ---
Multiple RNs and secuirty at bedside for medication, patient resisting staff, medicated as ordered per MD, patient unable to respond to questions
--- NOTE | 2024-07-15 13:33 | PC.NURSE ---
Pt. four point restraints applied with security officers at bedside
[2024-07-15 13:36] LABS: Glucose, Whole Blood 149 mg/dL (60-115)
--- NOTE | 2024-07-15 13:47 | PC.NURSE ---
IM meds with little effect- unable to safely draw labs at this time. Earlene Madrid DO notified
[2024-07-15 14:01] LABS: MANUAL DIFF FLAG NO
[2024-07-15 14:07] LABS: Basophils Percent Auto 0.5 % (0-2); Eosinophils Percent Auto 0.1 % (0-4); Hematocrit 43.3 % (37.0-47.0); Hemoglobin 15.3 g/dl (12.0-16.0); Imm Gran Abs Auto 0.03 X10*3/uL (0.00-0.03); Imm Gran Pct Auto 0.3 % (0.0-0.4); Lymphocytes Absolute Auto 1.2 X10*3/uL (1.2-4.9); Lymphocytes Percent Auto 13.3 % (20-40); Mean Corpuscular HGB Conc 35.3 g/dl (31.0-35.0); Mean Corpuscular Hemoglobin 28.4 pg (27.0-33.0); Mean Corpuscular Volume 80.5 fL (80.0-98.0); Mean Platelet Volume 9.8 fL (9.4-12.3); Monocytes Absolute Auto 0.6 X10*3/uL (0.1-1.2); Monocytes Percent Auto 6.5 % (2-11); Neutrophils Percent Auto 79.3 % (45-73); Platelet Count 294 X10*3/uL (160-400); Red Blood Count 5.38 X10*6/uL (4.20-5.50); Red Cell Distribution Width 13.1 % (11.0-16.0); White Blood Count 8.8 X10*3/uL (4.8-10.8)
[2024-07-15 14:10] LABS: Ammonia 36 umol/L (13-55)
[2024-07-15 14:27] LABS: Alanine Aminotransferase 14 U/L (0-31); Albumin Level 4.2 g/dL (3.5-5.0); Alkaline Phosphatase 84 U/L (39-117); Anion Gap 15 (12-20); Aspartate Amino Transferase 35 U/L (5-31); Bilirubin Direct 0.2 mg/dL (0.0-0.5); Bilirubin Total 0.7 mg/dL (0.0-1.0); Blood Urea Nitrogen 11 mg/dL (9-16); Calcium 9.7 mg/dL (8.4-10.2); Carbon Dioxide 25 mmol/L (22-29); Chloride 101 mmol/L (96-108); Creatinine Clr Calc Pharmacy 92.3; Estimated Glomerular Filt Rate > 60; Ethanol < 10 mg/dL; Glucose Random 144 mg/dL (60-115); Lipase 25 U/L (8-78); Magnesium 1.8 mg/dL (1.6-2.6); Sodium 138 mmol/L (135-145); Total Protein 7.8 g/dL (6.5-8.0)
[2024-07-15 14:30] LABS: Potassium 2.9 mmol/L (3.3-5.1)
--- NOTE | 2024-07-15 14:33 | PC.NURSE ---
Pt. out of all restraints at this time.
[2024-07-15 14:40] LABS: TSH reflex Free T4 1.43 uIU/mL (0.32-4.0)
[2024-07-15 14:50] LABS: Influenza A PCR NEGATIVE (Negative); Influenza B PCR NEGATIVE (Negative); Resp Syncy Virus RNA Qual PCR NEGATIVE (Negative); SARS COV2 PCR INHOUSE NEGATIVE (Negative)
[2024-07-15] MEDS: Potassium Chloride/H20 10 MEQ/100 ML PIGGYBACK 100 MEQ IV (14:57)
--- NOTE | 2024-07-15 15:56 | PC.NURSE ---
Pt. to CT at this time. Provided urine cup
--- NOTE | 2024-07-15 16:10 | PC.NURSE ---
Pt. refusing CT scan at this time. aware and to speak with pt.
[2024-07-15 16:15] LABS: Appearance Urine Turbid; Color Urine Yellow; Glucose Urine UA Negative (Negative); Leukocyte Esterase Urine Large (3+) (Negative); Nitrite Urine Negative (Negative); Specific Gravity - Urine <= 1.005 (1.005-1.025); UMIC TRIGGER UACC YES; Urine Blood Trace (Negative); Urine Ketones Trace mg/dL (Negative); Urine Protein Trace mg/dL (Neg-Trace)
[2024-07-15 16:18] LABS: Bacteria Urine 4+ (None Seen); Hyaline Casts Urine 0-2 /LPF (0-2); RBC Urine 0-2 /HPF (0-2); Squamous Epithelial Cell Urine >20 /HPF (0-2); UACC Culture Trigger YES; WBC Urine >50 /HPF (0-5)
[2024-07-15] MEDS: 0.9 % Sodium Chloride 1,000 ML 100 ML IVCONT (16:25)
[2024-07-15 16:27] LABS: Amphetamine Screen Urine Not Detected (Not Detect); Barbiturates, Urine Not Detected (Not Detect); Benzodiazepines Screen Urine Not Detected (Not Detect); Buprenorphine Scr Not Detected (Not Detect); Cannabinoid Screen Urine POSITIVE (Not Detect); Cocaine Screen Urine Not Detected (Not Detect); Fentanyl, urine Not Detected (Not Detect); Methadone Screen, Urine Not Detected (Not Detect); Opiate Screen Urine Not Detected (Not Detect); Oxycodone Screen Urine Not Detected (Not Detect); Phencyclidine Screen Urine Not Detected (Not Detect)
--- NOTE | 2024-07-15 16:37 | PC.NURSE ---
Pt. states to this RN that he does not want Potassium infusion. Explained to pt. that she has the right to refuse the med., but this RN provided education as to why Potassium is important to receive when your levels are low. After teaching, pt. is no longer refusing Potassium infusion and states that it's OK to continue.
--- NOTE | 2024-07-15 17:46 | PC.NURSE ---
Pt. refused PO Potassium. Earlene Madrid, DO aware.
--- OUTSIDE RECORDS SUMMARY | 2024-07-15 18:41 | XMS_ITS | Continuity of Care Document ---
Author Organization [facility] Address [address] [place] [id number]- Care Team Providers Care Spanish Lecturer Name Role Phone Desmond Hogan Primary Care Physician Encounter [facility] [place] [facility] Date(s): 05/23/24 - 06/22/24 [facility] [address] [place] [id number] Encounter Type: Triage Allergies, Adverse Reactions, Alerts Substance Criticality Severity Reaction Reaction Severity Status Keflex Rash Active Lamictal Skin rash. Active Augmentin nausea/vomiting abdominal pain Active meloxicam Facial swelling , tongue numbness, asthma Active Gluten free Active [...] myesha 1Result Comment: [03/27/2017] [facility] [id number] 2Admin Note: At [facility] 3Admin Note: VIS GIVEN-DATED 01/02/12 4Admin Note: VIS GIVEN VIS DATE 01/25/11 5Admin Note: vis given vis date 02/09/2010 6Admin Note: VIS GIVEN 7Admin Note: VIS GIVEN 8Admin Note: vis given Problem List Condition Confirmation Course Effective Dates [...] Confirmed Active 1F/U by Dr. Gibbs at [facility]. ORal Steroid Trial given. Social History Social History Type Response Smoking Status Never smoker entered on: 08/02/13 Sex Female Sex Representation Female (finding) Patient Care team information Care Team Personnel Name: Desmond Hogan Position: [facility] PCO Associate Professional Member Role: PCP Address: [address] [place] [address] Telecom: Name: Jamel Flor RN Position: [facility] RN Member Role: Primary Care Nurse Name: Candi Eisenberg RN Position: S RN Member Role: Primary Care Nurse Name: Gilmar Mckeon RN Position: [facility] SN RN Member Role: Primary Care Nurse Name: Elizabeth Rowland RN Position: [facility] Onco RN Member Role: Primary Care Nurse Care Team Related Persons Name: ALEJO PIERRE Name: CRISTAL PIERRE Insurance Providers Guarantor name: MEGAN PIERRE Health Plan Information #: 1 Payer: [employer] Member Number: NA Policy Number: NA Group Number: NA
--- OUTSIDE RECORDS SUMMARY | 2024-07-15 18:41 | XMS_ITS | Continuity of Care Document ---
Author Organization [facility] Address [address] [place] [address]- Care Team Providers Care Wild Oyster Harvester Name Role Phone Desmond Hogan Primary Care Physician [phone] Encounter [facility] Date(s): 05/25/24 - 06/24/24 [facility] [address] [place], [place] [address] [phone] Encounter Type: Triage Allergies, Adverse Reactions, Alerts [...] 8 06/30/08 Gi myesha 1Result Comment: [03/27/2017] [facility] [id number] 2Admin Note: [facility] 3Admin Note: VIS [...] Confirmed Active 1F/U by Dr. Gibbs at [facility]. ORal Steroid Trial given. Social History Social History Type Response Smoking Status Never smoker entered on: 08/02/13 Sex Female Sex Representation Female (finding) Patient Care team information Care Team Personnel Name: Desmond Hogan Position: [facility] PCO Associate Professional Member Role: PCP Address: [address] [place] [address] Telecom: Name: Jamel Flor RN [facility] CRISTAL PIERRE Insurance Providers Guarantor name: MEGAN IGNACIO [facility] Plan Information #: 1 Payer: [facility] Member Number: NA Policy Number: NA Group Number: NA
--- OUTSIDE RECORDS SUMMARY | 2024-07-15 18:41 | XMS_ITS | Continuity of Care Document ---
Author Organization [facility] Address [address] [place] [address]- Care Team Providers Care Drill Sharpener Name Role Phone Desmond Hogan Primary Care Physician [phone] [place]counter [facility] Date(s): 05/23/24 - 06/22/24 [facility] [address] [place] [id number] Encounter Type: Triage Allergies, Adverse Reactions, Alerts [...] 8 06/30/08 Gi myesha 1Result Comment: [03/27/2017] [facility] [id number] 2Admin Note: [facility] 3Admin Note: VIS [...] Confirmed Active 1F/U by Dr. Gibbs at [facility]. ORal Steroid Trial given. Social History Social History Type Response Smoking Status Never smoker entered on: 08/02/13 Sex Female Sex Representation Female (finding) Patient Care team information Care Team Personnel Name: Desmond Hogan Position: [facility] PCO Associate Professional Member Role: PCP Address: [address] [place] [address] Telecom: Name: Jamel Flor RN Position: [facility] RN Member Role: Primary Care Nurse Name: Candi Eisenberg RN Position: S RN Member Role: Primary Care Nurse Name: Gilmar Mckeon RN Position: [facility] SN RN Member Role: Primary Care Nurse Name: Elizabeth Rowland RN Position: [facility] Onco RN Member Role: Primary Care Nurse Care Team Related Persons Name: ALEJO PIERRE Name: CRISTAL PIERRE Insurance Providers Guarantor name: MEGAN IGNACIO [facility] Plan Information #: 1 Payer: [facility] Member Number: NA Policy Number: NA Group Number: NA
--- NOTE | 2024-07-15 19:22 | PC.NURSE ---
This RN assumed care of pt at 1900. per previous RN, pt refusing all forms of potassium, po and iv. per MD Madrid obtain repeat potassium now and if 3.0 or above patient can go to behavioral health pod.
[2024-07-15 20:03] LABS: Potassium 3.3 mmol/L (3.3-5.1)
[2024-07-15] MEDS: LORazepam 1 MG TABLET 2 MG PO (21:00)
[2024-07-16 02:55] VITALS: BP 168/97; PULSE 157; RESP 17; TEMP 36.6; O2SAT 96
[2024-07-16 02:59] VITALS: BP 188/106; PULSE 157; RESP 17; TEMP 36.6; O2SAT 96
--- NOTE | 2024-07-16 03:15 | PC.NURSE ---
Addendum entered by Kalpana Dahlarnacion 07/16/24 04:27: amedned to include TW educated pt on indication for ativan, pt continued to refuse Original Note: PT is tachycardia and hypertensive. provider aware Ativan ordered. Attempted to medicate pt however she refused stating i dont need it pt appearing agitated and paranoid. Notified provider of refusal no new orders at this time
--- NOTE | 2024-07-16 07:43 | PC.NURSE ---
Awaiting Synthroid per pharmacy at this time.
[2024-07-16] MEDS: Levothyroxine Sodium 112 MCG TABLET PO (08:51)
[2024-07-16 09:02] LABS: UPreg QC Valid YES; Urine Pregnancy NEGATIVE (NEGATIVE)
--- NOTE | 2024-07-16 09:47 | PC.NURSE ---
Awaiting 09:00 Pregabalin per pharmacy at this time
[2024-07-16] MEDS: Pregabalin 25 MG CAPSULE PO (11:57)
--- NOTE | 2024-07-16 13:37 | PHA.MEDREC ---
Addendum entered by Ashlyn Nicolas RPh 07/16/24 13:58: REVIEWED BY PHARMACIST Original Note: Pharmacy Consult ? Medication Reconciliation Pharmacy has reviewed the medication reconciliation done by nursing.
[2024-07-16 15:40] VITALS: BMI 27.2
[2024-07-16 15:41] VITALS: BP 143/85; PULSE 108; RESP 18; TEMP 36.3; O2SAT 96
--- NOTE | 2024-07-16 16:55 | PC.ADMIT ---
Enedelia is a 48 year old female admitted to the unit at 1457 from ED POD with a diagnosis of unspecified psychosis. She would not sign a CV and is on a 12B. Per ED crisis report brought her to the emergency room as he was concerned about her disorganized behaviors, memory issues, and paranoia. Patient presents as calm however she appears suspicious with significant thought blocking. Safety check was performed with [facility] which Enedelia was initially hesitant to do but was cooperative with encouragement. Much of the admission assessment was completed using the crisis assessment from the ED as Enedelia would not engage due to suspected thought blocking. She was oriented to the unit and her room and given toiletries. She has been visible on the unit walking the hallways with her belongings in her hand. Enedelia would not answer questions regarding SI/HI/AH/VH due to suspected thought blocking. She waska sked if she felt safe to which she replied Safe? Yes. Behavior has been calm since admitted to the unit. Will continue to monitor for safety and changes in behavior.
[2024-07-16 20:00] VITALS: BP 150/89; PULSE 100; RESP 18; TEMP 36.9; O2SAT 96
[2024-07-17] MEDS: Pregabalin 25 MG CAPSULE PO (08:34)
[2024-07-17] MEDS: Levothyroxine Sodium 112 MCG TABLET PO (08:34)
--- NOTE | 2024-07-17 08:52 | P.HPPS_ITS ---
HPI Date of Service: 07/17/24 Chief Complaint: psychosis HPI Narrative: per CARE team davidal, pt BIB her to ED due to psychotic behaviors, including paranoia, thought blocking, disorganized thoughts, mood lability, RIS. pt was agitated on arrival and required physical and chemical restraints. per , pt has been sleeping poorly, and did not sleep at all the night prior to presentation. also reported poor PO intake. also per , at baseline pt is happy and able to tend to the home and care for her children. on interview with MD, pt is able to say she is in a hospital in [place] and [place]. these answers after great delays and what appears to be derision at the questions. she denies mental illness and denies any need for medications. after declining to answer further questions, she states, i don't want to talk now. she is encouraged to take medications. Past Psychiatric History: hosps: 2015 at [place] x 3 wks and APTU x 4 wks shortly thereafter. SA: none known SIB: none known outpt: none 2 hosps in rapid succession in 2014 for 7 weeks total, then stopped meds/Tx and had been stable for the past 10 years until just recently. Medical Evaluation Reviewed: Yes [facility] Medical History Thyroid disease Family History: unknown Social History: , lives with and children. 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 Substance History: utox cannabis POS Trauma History: unknown Diagnostics Vital Signs (24Hr): Vital Signs - 24 hr 07/16/24 15:41 07/16/24 20:00 Temperature 97.3 F 98.4 F Pulse Rate 108 H 100 Respiratory Rate 18 18 Blood Pressure 143/85 H 150/89 H Pulse Oximetry 96 96 Oxygen Delivery Method Room Air Room Air BMI result Body Mass Index 27.2 Labs 07/15/24 13:53 07/15/24 14:43 Labs: Laboratory Results - last 48 hr 07/15/24 07/15/24 07/15/24 13:33 13:53 14:43 WBC 8.8 RBC 5.38 Hgb 15.3 Hct 43.3 MCV 80.5 MCH 28.4 MCHC 35.3 H RDW 13.1 Plt Count 294 MPV 9.8 Immature Gran % (Auto) 0.3 Neut % (Auto) 79.3 H Lymph % (Auto) 13.3 L Emmons % (Auto) 6.5 Eos % (Auto) 0.1 Baso % (Auto) 0.5 Lymph # (Auto) 1.2 Emmons # (Auto) 0.6 Eos # (Auto) 0.0 Baso # (Auto) 0.0 Abs Immat Gran (auto) 0.03 Absolute Neuts (auto) 7.0 Absolute Nucleated RBC 0.000 Nucleated RBC % (auto) 0.0 Sodium 138 Potassium 2.9 L* 3.3 Chloride 101 Carbon Dioxide 25 Anion Gap 15 BUN 11 Creatinine 0.79 Estim Creat Clear Calc 92.3 Estimated GFR > 60 POC Glucose 149 H Random Glucose 144 H Calcium 9.7 D Magnesium 1.8 Total Bilirubin 0.7 Direct Bilirubin 0.2 AST 35 H ALT 14 Alkaline Phosphatase 84 Ammonia 36 Total Protein 7.8 Albumin 4.2 Lipase 25 TSH 1.43 Urine Color Urine Appearance Urine pH Ur Specific [place] Urine Protein Urine Glucose (UA) Urine Ketones Urine Blood Urine Nitrite Ur Leukocyte Esterase Urine RBC Urine WBC Ur Squamous Epith Cells Urine Bacteria Hyaline Casts Urine Test Urine Opiates Screen Ur Buprenorphine Scrn Ur Oxycodone Screen Urine Methadone Screen Urine Fentanyl Screen Ur Barbiturates Screen Ur Phencyclidine Scrn Ur Amphetamines Screen U Benzodiazepines Scrn Urine Cocaine Screen U Marijuana (THC) Screen Ethyl Alcohol < 10 Influenza Type A (PCR) NEGATIVE Influenza Type B (PCR) NEGATIVE RSV RNA Qual (PCR) NEGATIVE SARS-CoV-2 RNA (RT-PCR) NEGATIVE 07/15/24 16:04 WBC RBC Hgb Hct MCV MCH MCHC RDW Plt Count MPV Immature Gran % (Auto) Neut % (Auto) Lymph % (Auto) Emmons % (Auto) Eos % (Auto) Baso % (Auto) Lymph # (Auto) Emmons # (Auto) Eos # (Auto) Baso # (Auto) Abs Immat Gran (auto) Absolute Neuts (auto) Absolute Nucleated RBC Nucleated RBC % (auto) Sodium Potassium Chloride Carbon Dioxide Anion Gap BUN Creatinine Estim Creat Clear Calc Estimated GFR POC Glucose Random Glucose Calcium Magnesium Total Bilirubin Direct Bilirubin AST ALT Alkaline Phosphatase Ammonia Total Protein Albumin Lipase TSH Urine Color Yellow Urine Appearance Turbid Urine pH 7.0 Ur Specific [place] <= 1.005 Urine Protein Trace Urine Glucose (UA) Negative Urine Ketones Trace Urine Blood Trace H Urine Nitrite Negative Ur Leukocyte Esterase Large (3+) H Urine RBC 0-2 Urine WBC >50 H Ur Squamous Epith Cells >20 Urine Bacteria 4+ Hyaline Casts 0-2 Urine Test NEGATIVE Urine Opiates Screen Not Detected Ur Buprenorphine Scrn Not Detected Ur Oxycodone Screen Not Detected Urine Methadone Screen Not Detected Urine Fentanyl Screen Not Detected Ur Barbiturates Screen Not Detected Ur Phencyclidine Scrn Not Detected Ur Amphetamines Screen Not Detected U Benzodiazepines Scrn Not Detected Urine Cocaine Screen Not Detected U Marijuana (THC) Screen POSITIVE H Ethyl Alcohol Influenza Type A (PCR) Influenza Type B (PCR) RSV RNA Qual (PCR) SARS-CoV-2 RNA (RT-PCR) Meds/Allergies Meds Home Medications ?Medication ?Instructions ?Recorded ?Confirmed ?Type levothyroxine 112 mcg tablet 112 mcg PO DAILY 07/15/24 07/15/24 History pregabalin 25 mg capsule 25 mg PO DAILY 07/15/24 07/15/24 History Allergies Allergies Allergy/AdvReac Type Severity Reaction Status Date / Time gluten Allergy Unknown Verified 07/15/24 13:27 lamotrigine [From Lamictal] Allergy Swelling Verified 07/15/24 13:27 Penicillins [PCN] Allergy Swelling Verified 07/15/24 13:27 Mental Status Exam Mental Status Exam Narrative: adequately dressed and groomed. not cooperative, generally speaking. PMR. speech nml rate, sparse. generally selectively mute. thoughts linear and logical superficially, but appears to have poverty of thought and thought blocking. affect blunted, hypo-intense, non-labile. mood i'm OK. denies SI/SIBI/HI/AVH. Assessment & Plan Assessment & Plan (1) Psychosis: Status: Acute Qualifiers: Psychosis type: unspecified psychosis type Qualified Code(s): F29 - Unspecified psychosis not due to a substance or known physiological condition Code(s): F29 - Unspecified psychosis not due to a substance or known physiological condition Assessment and Plan: R/O catatonia Plan offer anti-psychotic and ativan. Patient educated on: diagnosis and medication risk/benefits Reason for continued inpatient stay Substantial Risk for: inability to function Statement Statement: I have reviewed the history and physical and performed a pertinent examination on my patient. No changes have occurred unless specified. If the History and Physical was not performed prior to admission, the Hospitalist's service will be consulted for completing the admission physical. Time Spent With Patient Time: Total time managing care of this patient today _55___ minutes.
[2024-07-17 20:00] VITALS: BP 97/60; PULSE 100; RESP 16; TEMP 36.5; O2SAT 98
[2024-07-18 08:05] VITALS: BP 155/99; PULSE 116; RESP 14; TEMP 36.6; O2SAT 97
--- NOTE | 2024-07-18 10:47 | PM.PSYDC ---
DS: Providers Provider Date of Service: 07/18/24 Date of admission: 07/16/24 12:51 Date of discharge: 07/19/24 Primary care physician: MINDY Pryor DS: Diagnosis Discharge Diagnosis (1) Psychosis: Status: Acute DS: Medications Discharge Medications Home Medications: Home Medications ?Medication ?Instructions ?Recorded ?Confirmed levothyroxine 112 mcg tablet 112 mcg PO DAILY 07/15/24 07/15/24 pregabalin 25 mg capsule 25 mg PO DAILY 07/15/24 07/15/24 Mental Status Exam Mental Status Exam Narrative: adequately dressed and groomed. not cooperative, generally speaking. PMR. speech nml rate, sparse. often selectively mute. thoughts linear and logical superficially, but appears to have poverty of thought and thought blocking. affect blunted, hypo-intense, non-labile. mood i'm OK. denies SI/SIBI/HI/AVH. Data Data Completed and Pending Completed studies during hospitalization [Text1]: 07/15/24 07/15/24 07/15/24 13:33 13:53 14:43 WBC 8.8 RBC 5.38 Hgb 15.3 Hct 43.3 MCV 80.5 MCH 28.4 MCHC 35.3 H RDW 13.1 Plt Count 294 MPV 9.8 Immature Gran % (Auto) 0.3 Neut % (Auto) 79.3 H Lymph % (Auto) 13.3 L Scott % (Auto) 6.5 Eos % (Auto) 0.1 Baso % (Auto) 0.5 Lymph # (Auto) 1.2 Scott # (Auto) 0.6 Eos # (Auto) 0.0 Baso # (Auto) 0.0 Abs Immat Gran (auto) 0.03 Absolute Neuts (auto) 7.0 Absolute Nucleated RBC 0.000 Nucleated RBC % (auto) 0.0 Sodium 138 Potassium 2.9 L* 3.3 Chloride 101 Carbon Dioxide 25 Anion Gap 15 BUN 11 Creatinine 0.79 Estim Creat Clear Calc 92.3 Estimated GFR > 60 POC Glucose 149 H Random Glucose 144 H Calcium 9.7 D Magnesium 1.8 Total Bilirubin 0.7 Direct Bilirubin 0.2 AST 35 H ALT 14 Alkaline Phosphatase 84 Ammonia 36 Total Protein 7.8 Albumin 4.2 Lipase 25 TSH 1.43 Urine Color Urine Appearance Urine pH Ur Specific [place] Urine Protein Urine Glucose (UA) Urine Ketones Urine Blood Urine Nitrite Ur Leukocyte Esterase Urine RBC Urine WBC Ur Squamous Epith Cells Urine Bacteria Hyaline Casts Urine Test Urine Opiates Screen Ur Buprenorphine Scrn Ur Oxycodone Screen Urine Methadone Screen Urine Fentanyl Screen Ur Barbiturates Screen Ur Phencyclidine Scrn Ur Amphetamines Screen U Benzodiazepines Scrn Urine Cocaine Screen U Marijuana (THC) Screen Ethyl Alcohol < 10 Influenza Type A (PCR) NEGATIVE Influenza Type B (PCR) NEGATIVE RSV RNA Qual (PCR) NEGATIVE SARS-CoV-2 RNA (RT-PCR) NEGATIVE 07/15/24 16:04 WBC RBC Hgb Hct MCV MCH MCHC RDW Plt Count MPV Immature Gran % (Auto) Neut % (Auto) Lymph % (Auto) Scott % (Auto) Eos % (Auto) Baso % (Auto) Lymph # (Auto) Scott # (Auto) Eos # (Auto) Baso # (Auto) Abs Immat Gran (auto) Absolute Neuts (auto) Absolute Nucleated RBC Nucleated RBC % (auto) Sodium Potassium Chloride Carbon Dioxide Anion Gap BUN Creatinine Estim Creat Clear Calc Estimated GFR POC Glucose Random Glucose Calcium Magnesium Total Bilirubin Direct Bilirubin AST ALT Alkaline Phosphatase Ammonia Total Protein Albumin Lipase TSH Urine Color Yellow Urine Appearance Turbid Urine pH 7.0 Ur Specific [place] <= 1.005 Urine Protein Trace Urine Glucose (UA) Negative Urine Ketones Trace Urine Blood Trace H Urine Nitrite Negative Ur Leukocyte Esterase Large (3+) H Urine RBC 0-2 Urine WBC >50 H Ur Squamous Epith Cells >20 Urine Bacteria 4+ Hyaline Casts 0-2 Urine Test NEGATIVE Urine Opiates Screen Not Detected Ur Buprenorphine Scrn Not Detected Ur Oxycodone Screen Not Detected Urine Methadone Screen Not Detected Urine Fentanyl Screen Not Detected Ur Barbiturates Screen Not Detected Ur Phencyclidine Scrn Not Detected Ur Amphetamines Screen Not Detected U Benzodiazepines Scrn Not Detected Urine Cocaine Screen Not Detected U Marijuana (THC) Screen POSITIVE H Ethyl Alcohol Influenza Type A (PCR) Influenza Type B (PCR) RSV RNA Qual (PCR) SARS-CoV-2 RNA (RT-PCR) 07/15/24 16:19 Urine clean catch - Clean Catch Midstream Urine Culture - Final DS: Summary Hospital Course Hospital Course: per 07/17 admission note: HPI Narrative: per CARE team gio, pt BIB her to ED due to psychotic behaviors, including paranoia, thought blocking, disorganized thoughts, mood lability, RIS. pt was agitated on arrival and required physical and chemical restraints. per , pt has been sleeping poorly, and did not sleep at all the night prior to presentation. also reported poor PO intake. also per , at baseline pt is happy and able to tend to the home and care for her children. on interview with MD, pt is able to say she is in a hospital in [place] and that she lives in [place]. these answers after great delays and what appears to be derision at the questions. she denies mental illness and denies any need for medications. after declining to answer further questions, she states, i don't want to talk now. she is encouraged to take medications. Past Psychiatric History: hosps: 2015 at [place] x 3 wks and APTU x 4 wks shortly thereafter. SA: none known SIB: none known outpt: none 2 hosps in rapid succession in 2014 for 7 weeks total, then stopped meds/Tx and had been stable for the past 10 years until just recently. Medical Evaluation Reviewed: Yes [facility] Medical History Thyroid disease Family History: unknown Social History: , lives with and children. 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 Substance History: utox cannabis POS Trauma History: unknown Precis: 07/17: offer anti-psychotic and ativan. 07/18: pt refusing medications. remains thought-blocked, suspicious, reticent to talk. informed of 3-day notice expiry tomorrow and plan to discharge. 07/19: no change in presentation overnight. 3-day notice matures, pt discharged as per plan as she is not at imminent risk of harm to herself or others due to mental illness. her ability for self-care and self-protection are impaired, but as she will be living with and supported by family members, she is suitable to be discharged to their care. Time Spent with Patient Time attestation: Total time managing care of this patient today __35__ minutes. Discharge Plan Discharge Anticipated Discharge Date/Time: 07/19/24 11:00 Patient Disposition: Home, Self-Care Discharge Diagnosis: Psychotic Disorder NOS Referrals: Therapy & Psychiatry [Other] - 1 Week (*You can present to the clinic above, Monday through Monday during the hours of 8am and 8pm, if you are interested in outpatient mental health treatment. ) Desmond Leija PA [Primary Care Provider] - 1 Week (07-18-24 Please contact your primary care provider to schedule your follow up appt within 7-10 days of discharge.) Discharge Medications: Continued levothyroxine 112 mcg tablet 112 mcg PO DAILY pregabalin 25 mg capsule 25 mg PO DAILY Discharge Orders: Discharge Order (Routine); Ordered 07/19/24 Ordered By: Broderick Carlin Diet: Advance to usual diet Activity on Discharge: As tolerated Stand Alone Forms: Patient Portal Discharge page, Community Support Print Language: Guatemalan Care Plan Goals: engage in mental health care, take psychiatric medications for psychosis Health Concerns: none Plan of Treatment: engage in mental health treatment in the outpatient setting, in particular seek out a medications prescriber. Assessment: not at imminent risk of harm to self or others. pt is unable to take adequate care of herself without the close support of family. Discharge Date/Time: 07/19/24 14:35
[2024-07-18 19:36] VITALS: BP 150/94; PULSE 112; RESP 18; TEMP 36.3; O2SAT 97
[2024-07-19] MEDS: Levothyroxine Sodium 112 MCG TABLET PO (06:24)
[2024-07-19 07:37] VITALS: BP 150/88; PULSE 107; RESP 16; TEMP 36.4; O2SAT 98
[2024-07-19] MEDS: LORazepam 1 MG TABLET PO (10:25)
== END 2024-07-19 14:35 | disposition home or self-care (01) | DRG 750 ==
LOC: HO.ED 20:26 → HO.PADLT16 07-16 13:08
PROVIDERS: Admitting Provider Psychiatry & Neurology Psychiatry; Emergency Provider Emergency Medicine; PCP Physician Assistant Medical; Visit Provider Psychiatry & Neurology Psychiatry
DX: F29 Unspecified psychosis not due to a substance or known physiological condition (principal); Z20.822 Contact with and (suspected) exposure to COVID-19; Z79.890 Hormone replacement therapy; Z79.899 Other long term (current) drug therapy
CPT/HCPCS: 0241U; 36415; 80048; 80076; 80307; 81001; 81025; 82140; 82947; 83690; 83735; 84132; 84443; 85025; 87086; 93005; 99285; J2060; J2359; J3480

== ENCOUNTER → 2024-07-15 13:16 | Outpatient (BNV) | payer OTHER, SELFPAY | PROVIDERS: Admitting Provider Psychiatry & Neurology Psychiatry; Emergency Provider Emergency Medicine; PCP Physician Assistant Medical; Visit Provider Internal Medicine Cardiovascular Disease | DX: I49.8 Other specified cardiac arrhythmias (principal) | CPT/HCPCS: 93010 ==

== ENCOUNTER → 2024-07-16 12:51 | Outpatient (BNV) | payer OTHER, SELFPAY | PROVIDERS: Admitting Provider Psychiatry & Neurology Psychiatry; Emergency Provider Emergency Medicine; PCP Physician Assistant Medical; Visit Provider Psychiatry & Neurology Psychiatry | DX: F29 Unspecified psychosis not due to a substance or known physiological condition (principal) | CPT/HCPCS: 99233 ==